=== PATIENT | female | born 1940 | race Caucasian/White ===

== ENCOUNTER → 2017-01-23 | Day surgery (SDC) | payer MEDICARE ==
[2017-01-23] VITALS (9 sets, daily range): BP systolic 136–200; BP diastolic 80–101
[~2017-01-23] MED LIST: ALLOPURINOL300 MG PO; ASPIRIN81 M1 PO; ATORVASTATIN CA40 M1 PO; BUMETANIDE2 MG PO; CARVEDILOL25 MG PO; COREG25 MG PO; DARVOCET N 1001 TAB PO; DOXYCYCLINE100 MG PO; HYDROCHLOROTHIA25 MG PO; KEFLEX500 MG PO; KLOR-CON M2020 ME1 PO; KLOR-CON M2020 MEQ PO; LASIX40 MG PO; LIDEX0.05% T; LISINOPRIL40 MG PO; METOLAZONE2.5 MG PO; METOPROLOL SR50 MG PO; NEURONTIN400 MG PO; NITROGLYCERIN0.4 MG SL; OXYCODONE5 M1 PO; PLAVIX75 M1 PO; PLAVIX75 MG PO; POTASSIUM CHLO20 ME4 PO; PRAVACHOL20 MG PO; PRAVACHOL40 MG PO; PREDNICOT20 MG PO; PREDNISONE10 MG PO; SYMBICORT1 AE1 INH; VITAMIN D-32000 UNIT PO; VITAMIN D1000 IU PO; XARE20MG PO; XARELTO15 M1 PO
== END | disposition home or self-care (01) ==
LOC: SDC 03:26 → LAB 13:00 → SDC 13:00
DX: R91.8 Other nonspecific abnormal finding of lung field (principal)

== ENCOUNTER 2017-05-24 19:01 | Inpatient (IN) | payer MEDICARE ==
[2017-05-24] VITALS (11 sets, daily range): BP systolic 110–130; BP diastolic 71–96
[~2017-05-24] VITALS: Ht 162.5 cm; Wt 62.3 kg
--- NOTE | ~2017-05-24 | CON ---
[place], [place] REPORT OF CONSULTATION NAME: COLTON GOLDMAN [facility] #: [id number] UNIT #: [id number] ROOM: 407 DOCTOR: MARICRUZ SORTO MD,YADIRA BIRTHDATE: [birth year] DOS: 05/26/2017 REASON FOR CONSULTATION: Assess the patient for hemoptysis. HISTORY OF PRESENT ILLNESS: This is a 76-year-old white female who has been known to nv once as the patient was hospitalized in [facility]. The patient underwent right upper lobectomy for the pulmonary nodule noted at 2.5 cm in the final dimension later on and also dissection of the lymph node noted with invasive squamous cell carcinoma [id number]. The patient was noted on mechanical ventilator. She was noted for surgery as well. She was noted with severe hypertension and volume depletion. The patient was subsequently transferred later on to the [facility]. She has been noted with the diagnosis of ischemic colitis at that time and underwent a partial colectomy and colostomy. The patient has been transferred after the medical management to acute long-term care facility. The patient remained in the long-term care facility and later on transferred to [facility]. She is currently treated at the [facility] in [place], [place]. The patient stated that she was developing cough intermittently in the past few days, but noted to have nonproductive cough previously. Productive cough was noted in the patient with strings of blood. The patient states that she has not told anybody about that. However, later on the patient's symptoms started worsening with tayo hemoptysis described. She denies symptoms of pain in the chest. Denies any acute shortness breath or wheezing. She was sent to the hospital. The patient was assessed in the Emergency Room and currently hospitalized for that. REVIEW OF SYSTEMS: CONSTITUTIONAL: Fatigue and tiredness. The patient noted without symptoms of fever or chills. EYES: Denies any burning, redness, or tenderness. EARS, NOSE, THROAT SYMPTOMS: No sore throat, hoarseness, otalgia, postnasal drainage. CARDIOVASCULAR: Denies anginal pain, edema or pain of the lower extremities. GASTROINTESTINAL: Denies dysphagia, nausea, vomiting, diarrhea, abdominal pain, hematemesis, melena, hematochezia currently a colostomy in place. GENITOURINARY: Denies dysuria, suprapubic pain, hematuria or flank pain. MUSCULOSKELETAL: Denies acute joint pain, redness, or tenderness. The patient has been noted with the pain in the right hip when ambulating. There was no history of any joint swelling described. SKIN: No lesions or rashes. CENTRAL NERVOUS SYSTEM: Denies dizziness, headache or diplopia. Remaining systems were reviewed with the patient, they were noted all negative. PAST MEDICAL HISTORY: 1. The medical record reviewed from [facility] was noted with history of coronary artery disease. 2. History of chronic obstructive pulmonary disease. 3. A 2.5 cm invasive squamous cell carcinoma status post surgical resection of [place], [place] REPORT OF CONSULTATION NAME: COLTON GOLDMAN UNIT #: [id number] ROOM: [facility] DOCTOR: YADIRA BRUNO MD BIRTHDATE: [birth year] the right upper lobe as well as VATS resection of the right lower lobe nodule which was noted to be nonmalignant. Lymph node dissection for the patient was done from the right side, which was also noted without any presence of malignancy. The tumor was staged as stage I. 4. for surgical resection of the right upper lobe with surgical fixation done in [place], [place] in February 2017. 5. History of ischemic colostomy. 6. History of right deep venous thrombosis. SURGICAL HISTORY: 1. Tubal ligation. 2. Lumbar laminectomy. 3. Cardiac catheterization and coronary artery stents insertion. 4. Right upper lobectomy and lymph node resection of the VATS biopsy of the right lower lobe. 5. Ligation of the thoracic duct for this patient was done on 03/12/2017 in [facility]. 6. Partial colectomy with permanent colostomy. SOCIAL HISTORY: The patient is , has 2 children. She was living at home prior to hospitalization in February 2017 and so far has not been released and discharged for home. History of tobacco use noted as a teenager, pack of cigarettes per day. Denies history of alcohol use or illicit drug use. FAMILY HISTORY: Reported for kidney problem, hypertension, heart problems and diabetes mellitus. MEDICATIONS: Current administered medication noted as use of Lipitor, Metoprolol tartrate, Effexor, folic acid, potassium chloride, vitamin D, tramadol, albuterol sulfate nebulizer, IV Protonix, IV Zosyn, and other p.r.n. medications administration. ALLERGIES: The drug allergy history was noted as allergies to: 1. NEOSPORIN. 2. PRAMOXINE. PHYSICAL EXAMINATION: GENERAL: This is a 76-year-old female who has been currently sitting comfortably on the chair in her room at the time of the assessment. Her height was recorded by the nursing staff at the time of admission as 5 feet 4 inches, weight 137 pounds, BMI 23.5. VITAL SIGNS: Recorded showed temperature remains normal, respiratory rate 18-14. Heart rate 95-102. Blood pressure 158/82-122/62. Intake 3000, output was 1.86 liters. Pulse oxygen saturation on 2 liters nasal cannula 98% saturation. HEENT: Examination shows head was atraumatic. Eyes not icterus. NECK: Supple. CARDIOVASCULAR: S1, S2 audible. LUNGS: Noted without any crackles, rhonchi, or wheezing. ABDOMEN: Flat, soft, nontender. Bowel sounds present. [place], [place] REPORT OF CONSULTATION NAME: COLTON GOLDMAN UNIT #: [id number] ROOM: [facility] DOCTOR: MARICRUZ SORTO [facility] BIRTHDATE: [birth year] CENTRAL NERVOUS SYSTEM: Cranial nerves 2-12 intact. No focal deficits. MUSCULOSKELETAL: No deformities. SKIN: No lesions or rashes. LABORATORY DATA: CBC on 05/24/2017: WBC count was noted as 23.2, hemoglobin 11.2, hematocrit 33.4, platelet count 448,000. PT/PTT were noted. INR elevated on 05/24/2017 at 5.7. PTT was 57. The lactic acid was 1.6 on 05/24/2017. Follow up lactic acid 2.0. Troponin of patient on admission on the 05/24/2017 and 05/25/2017, 3 sets were noted normal. INR on 05/25/2017 was 4.8. CBC of patient on 05/25/2010: WBC count 14.3, hemoglobin 9.9, hematocrit 30.3, platelet count 368,000. BMP of the patient 05/25/2017 was noted BUN 30, creatinine was normal. Sodium 133. BMP 05/26/2017 was noted as normal. PT/INR of the patient this morning was 1.5. CBC of the patient this morning: WBC count 12,000, hemoglobin 8.6, hematocrit 27.2, platelet count 360,000. The blood culture for the patient from the 05/24/2017 two sets remains no bacterial growth. Chest x-ray of the patient, one view that was done during current hospitalization was noted without any acute pulmonary infiltration. Postoperative changes noted in the right upper lung. IMPRESSION: 1. The patient has been currently noted with significant leukocytosis with cough and hemoptysis as well as Coumadin toxicity. 2. History of status post resection of the right upper lobe for this patient for the invasive squamous cell cancer without any lymph node involvement. 3. The patient with ____ complication post-thoracic surgery. The patient with successful ligation and thoracic duct resolution. 4. Ischemic colitis. The patient is status post colostomy in February 2017. 5. Debility. 6. Anemia for the patient is also noted of possibly chronic disease. 7. History of deep venous thrombosis of right lower extremity. PLAN OF MANAGEMENT: Hemoptysis at this time will be monitored. The patient will be kept off the anticoagulation to prevent the recurrence of hemoptysis. Bronchoscopy planned to be done in the morning. Risks and benefits of procedure were discussed with the patient to assess for the hemoptysis. CT scan of the chest will be obtained even with the negative chest x-ray to rule out any occult problems in the lungs since it was not noted 100% sensitive to rule out pneumonia or other etiologies of the hemoptysis. Supportive care therapy, plan of management. Continue bronchodilators as previously. Reduce the antibiotic spectrum with available any culture results. Order the sputum for supportive care, plan of management. Routine DVT prophylaxis with the use of Lovenox starting from tomorrow. [place], [place] REPORT OF CONSULTATION NAME: COLTON GOLDMAN UNIT #: [id number] ROOM: 407 DOCTOR: YADIRA BRUNO MD BIRTHDATE: [birth year] YADIRA ALCANTARA MD CM:CONSTR:REPORT OF CONSULTATION 1421 05/27/17 4316 interface
--- NOTE | ~2017-05-24 | PR ---
[place], [place] PROGRESS NOTE NAME: COLTON GOLDMAN [facility] #: [id number] UNIT #: [id number] ROOM: [facility] DOCTOR: MARICRUZ SORTO MD,YADIRA BIRTHDATE: [birth year] DOS: 05/27/2017 SUBJECTIVE: She has been noted with small amount of hemoptysis in the last 24 hours with clotted blood and mucus expectoration. She is n.p.o. past midnight for bronchoscopy that was planned for today. She has had a CT scan of the chest was completed yesterday. OBJECTIVE: VITAL SIGNS: The patient showed normal temperature, respiratory rate 15, heart rate 91, blood pressure of 118/60. Pulse oxygen saturation of the patient was recorded on 2 liters nasal cannula 100% saturation. HEENT: Showed no acute change. NECK: Supple. CARDIOVASCULAR: S1, S2 audible. LUNGS: Mild to moderate decreased breath sounds bilaterally without any wheezing or crackles. ABDOMEN: Soft, nontender. LABORATORY DATA: INR today was noted 1.2. CBC of this morning, hemoglobin 8.1, hematocrit 25.5, WBC count normal, platelet count was normal. The CT scan of the chest, which was done without contrast yesterday was personally reviewed shows evidence of previous right upper lobectomy. The 3.3 x 2.7 cm right dorsal peritracheal mass. The patient needs surgery which is noted. The mass also noted with extension to the subcarinal region for this patient and is a 2.9 x 2.2 cm necrotic mass at that area. Evidence of centrilobular emphysema, acute changes noted in the upper lungs as well. IMPRESSION: 1. Past history of squamous cell cancer, status post right upper lobectomy and lymph node dissection. Margins of the tumor were noted free off the cancer for this patient with right upper lobectomy. 2. Hemoptysis, most likely secondary to current necrotic mass and recurrence of the invasive squamous cell cancer, locally. 3. Anemia. 4. History of chronic obstructive pulmonary disease. PLAN OF MANAGEMENT: No changes in the plan at this time. Proceed with the bronchoscopy, further assessment of hemoptysis and current abnormality noted on CT scan of the chest. Continue supportive plan and management. Any modification in treatment if necessary will be done after bronchoscopy. [place], [place] PROGRESS NOTE NAME: COLTON GOLDMAN UNIT #: [id number] ROOM: [facility] DOCTOR: MARICRUZ SORTO MD,YADIRA BIRTHDATE: [birth year] YADIRA ALCANTARA MD CM:BYRON [id number] YADIRA SORTO MD 05/27/17 1216 interface
--- NOTE | ~2017-05-24 | PR ---
[place], [place] PROGRESS NOTE NAME: COLTON GOLDMAN UNIT #: [id number] ROOM: 407 DOCTOR: YADIRA BRUNO MD BIRTHDATE: [birth year] DOS: 05/28/2017 PULMONARY FOLLOWUP NOTE SUBJECTIVE: She has been noted comfortable at this time, resting on the bed. Denies symptoms of chest or any abdominal pain. Coughing has been noted minimal. OBJECTIVE: VITAL SIGNS: For the patient which were recorded showed the blood pressure noted as 108/60, temperature normal, respiratory rate 16, heart rate 78. Pulse oxygen saturation of the patient recorded on 2 liters nasal cannula 100% saturation. HEENT: Examination shows no acute change. NECK: Supple. CARDIOVASCULAR: S1, S2 audible. LUNGS: Without any wheeze or crackles at the present time. ABDOMEN: Soft, nontender. IMPRESSION: 1. Acute tracheobronchitis with current bronchial washing noted light growth of gram-negative ____ isolation with preliminary culture results of yesterday. Gram stain shows moderate white blood cells, moderate epithelial cells, ____ gram-positive cocci. 2. Recurrence of the malignancy of squamous cell carcinoma after previous surgery and resection of the right upper lung invasive squamous cell cancer. PLAN OF MANAGEMENT: Continue using antibiotics. Discharge planning could be started for possible discharge home in the morning. Whether she will require further intravenous and oral antibiotic will be based on the culture results of the bronchial washings. Monitor results of the endobronchial biopsy and cytology of the bronchial washing which was pending at this time. Assessment and management of the bronchoscopy as well as the CT scan finding was discussed in detail with the patient today for 10 minutes. [place], [place] PROGRESS NOTE NAME: COLTON GOLDMAN UNIT #: [id number] ROOM: 407 DOCTOR: YADIRA BRUNO MD BIRTHDATE: [birth year] YADIRA ALCANTARA MD CM:PNTRANS [id number] 1149 YADIRA SORTO MD 05/28/17 1149 interface
--- NOTE | ~2017-05-24 | EKG ---
[place], [place] ELECTROCARDIOGRAM REPORT NAME: COLTON GOLDMAN UNIT #: [id number] ROOM: 407 DOCTOR: THIAGO INGRAM MD BIRTHDATE: [birth year] DOS: 05/24/2017 TIME: 1913 hours. Sinus tachycardia at 121 beats per minute. Tracing is normal. No previous tracing is available for comparison. THIAGO INGRAM MD CM:EKGRPT:ELECTROCARDIOGRAM REPORT 34 [phone] THIAGO INGRAM MD
--- NOTE | ~2017-05-24 | PROC NOTE ---
[place], [place] PROCEDURE NOTE NAME: [facility]TON GOLDMAN [facility] #: [id number] UNIT #: [id number] ROOM: [facility] DOCTOR: MARICRUZ SORTO MD,YADIRA BIRTHDATE: [birth year] DOS: 05/27/2017 PREOPERATIVE DIAGNOSIS: Hemoptysis with history of lung cancer, right upper lobectomy. POSTOPERATIVE DIAGNOSES: Small clotted amount of blood was noted in right main stem bronchus without any active bleeding, status post biopsy at the area of the stump of right upper lobe. PROCEDURE DESCRIPTION: Informed consent obtained for the patient. The patient brought to the OR and placed in supine position. Conscious sedation administered by the Anesthesia Department. After achieving proper sedation, airway introduced into the mouth. Bronchoscope advanced into the airway into laryngeal area. Epiglottis and vocal cords were seen, which were noted yellowish in color moving symmetrically with movements. Bronchoscope advanced the tracheal lumen, which was noted clear of any blood or other abnormality. Norma noted sharp. Small amount of mucus mixed with the blood was noted in the upper right main stem bronchus, which was cleared out with normal saline wash. The left upper lingula, lower lobe bronchi were all examined. There were noted normal without any abnormalities. Bronchial washing was taken. Right middle, right lower lobe bronchi were also noted patent including superior segment of the right lower lobe. All appeared to be normal caliber without any endobronchial lesions. The area of the stump for this patient where the right upper lobe resection was done was seen, was noted with some irregularity of the mucosa and nodular appearance. The biopsy was taken at that area. A 1:10,000 epinephrine was lavaged at that area to prevent any bleeding. Procedure well tolerated by the patient without any complications. Postoperative findings will be discussed with the patient once the patient recovers the effects of acute sedation. YADIRA ALCANTARA MD CM:PROCNOTE:PROCEDURE NOTE 1012 1220 YADIRA SORTO MD
[~2017-05-24 19:01] MED LIST changes: +KLOR-CON SPRIN10 MEQ PO
[2017-05-24 19:41] LABS: HEMATOCRIT 33.4 % (37.0-47.0); HEMOGLOBIN 11.2 g/dl (12.0-16.0); MEAN CELL VOLUME 84.3 fl (81.0-99.0); MEAN CORPUSCULAR HGB 28.3 pg (27.0-31.0); MEAN CORPUSCULAR HGB CONC 33.5 g/dl (33.0-37.0); MEAN PLATELET VOLUME 9.6 fl (9.6-12.3); PLATELET COUNT AUTOMATED 448 10*3/uL (130-400); RED BLOOD COUNT 3.96 10*6/uL (4.10-5.10); RED CELL DISTRI WIDTH 14.6 % (0-14.5); WHITE BLOOD COUNT 23.2 10*3/uL (4.8-10.8)
[2017-05-24 19:57] LABS: ALBUMIN 2.9 gm/dl (3.1-4.5); ALKALINE PHOSPHATASE 222 U/L (45-117); BILIRUBIN, TOTAL 0.4 mg/dl (0.2-1.0); BUN 34 mg/dl (7-24); CARBON DIOXIDE 21 mmol/L (21-32); CHLORIDE 95 mmol/L (98-107); EST GLOM FILT AFRICAN AMERICAN 53 ml/min; GLUCOSE 108 mg/dL (65-99); MAGNESIUM 1.3 mg/dL (1.5-2.1); POTASSIUM 5.7 mmol/L (3.5-5.1); SGOT/AST 18 IU/L (3-35); SGPT/ALT 24 U/L (12-78); SODIUM 127 mmol/L (136-145); TOTAL PROTEIN 8.9 gm/dL (6.4-8.2)
[2017-05-24 19:58] LABS: PROTHROMBIN TIME 67.4 SECONDS (9.0-12.4)
[2017-05-24 19:59] LABS: BASOPHIL # 0.2 10*3/uL (0-0.1); BASOPHILS 1 % (0-1); EOSINOPHIL # 0.5 10*3/uL (0-0.4); EOSINOPHILS 2 % (1-4); LYMPHOCYTE # 1.9 10*3/uL (1.3-4.4); MONOCYTE # 0.9 10*3/uL (0.1-1.0); NEUTROPHIL # 19.7 10*3/uL (2.3-7.9); NEUTROPHILS 85 % (47-73); TOTAL CELLS COUNTED 100 #CELLS; TROPONIN I < 0.015 ng/ml (<0.045)
[2017-05-24 20:00] LABS: PLATELET SUFFICIENCY HIGH (NORMAL)
[2017-05-24 20:04] LABS: INTERNATIONAL NORM RATIO 5.7 (2.0-3.5)
[2017-05-24] MEDS ORDERED: ASPIRIN81 M1 PO (22:47)
[2017-05-24] MEDS ORDERED: COUMADIN1 M1 PO (22:54)
[2017-05-24] MEDS ORDERED: COUMADIN2 M1 PO (22:57)
[2017-05-24] MEDS ORDERED: NATURE'S BLEND F1 MG PO (22:58)
[2017-05-24] MEDS ORDERED: EFFEXOR XR37.5 M1 PO (22:59)
[2017-05-24] MEDS ORDERED: LOPRESSOR25 MG PO (23:01)
[2017-05-24] MEDS ORDERED: PROTONIX40 MG PO (23:02)
[2017-05-24] MEDS ORDERED: Ventolin 02.5 MG/3 M INH (23:04)
[2017-05-24] MEDS ORDERED: MECLIZINE HCL12.5 MG PO (23:06)
[2017-05-24] MEDS ORDERED: ALUM-MAG HYDRO360 ML PO (23:08)
[2017-05-24] MEDS ORDERED: NITROLINGU0.4 MG/ACT TL (23:11)
[2017-05-24] MEDS ORDERED: TYLENOL325 M2 PO (23:12)
[2017-05-24] MEDS ORDERED: TRAMADOL HCL50 MG PO (23:13)
[2017-05-24] MEDS ORDERED: ZOFRAN4 MG PO (23:13)
[2017-05-24] MEDS ORDERED: DESITIN40% T (23:18)
[2017-05-25] VITALS: BP 132/80
[2017-05-25 03:14] LABS: BILIRUBIN NEGATIVE (NEGATIVE); BLOOD 2+ (NEGATIVE); CLARITY SL CLOUDY (CLEAR); COLOR YELLOW (YELLOW); GLUCOSE NEGATIVE (NEGATIVE); KETONE NEGATIVE (NEGATIVE); LEUKO ESTERASE 3+ (NEGATIVE); NITRITE POSITIVE (NEGATIVE); PROTEIN NEGATIVE (NEGATIVE); SPECIFIC GRAVITY 1.025 (1.005-1.030); UROBILINOGEN 0.2 E.U./dl (0.2-1.0)
[2017-05-25 03:20] LABS: BACTERIA 3+
[2017-05-25 03:21] LABS: EPITHELIAL CELLS 30-35; WBC 41-50 wbc/hpf (0-5); YEAST TRACE
[2017-05-25 04:00] VITALS: BP 158/82
[2017-05-25 04:46] LABS: HEMATOCRIT 30.3 % (37.0-47.0); HEMOGLOBIN 9.9 g/dl (12.0-16.0); MEAN CELL VOLUME 86.3 fl (81.0-99.0); MEAN CORPUSCULAR HGB 28.2 pg (27.0-31.0); MEAN CORPUSCULAR HGB CONC 32.7 g/dl (33.0-37.0); MEAN PLATELET VOLUME 9.8 fl (9.6-12.3); PLATELET COUNT AUTOMATED 368 10*3/uL (130-400); RED BLOOD COUNT 3.51 10*6/uL (4.10-5.10); RED CELL DISTRI WIDTH 14.7 % (0-14.5); WHITE BLOOD COUNT 14.2 10*3/uL (4.8-10.8)
[2017-05-25 04:59] LABS: BUN 30 mg/dl (7-24); CARBON DIOXIDE 24 mmol/L (21-32); CHLORIDE 100 mmol/L (98-107); EST GLOM FILT AFRICAN AMERICAN > 60 ml/min; GLUCOSE 100 mg/dL (65-99); MAGNESIUM 2.3 mg/dL (1.5-2.1); SODIUM 133 mmol/L (136-145)
[2017-05-25 05:03] LABS: FREE T4 1.54 ng/dl (0.76-1.46); PHOSPHOROUS 4.3 mg/dL (2.5-4.9); PROTHROMBIN TIME 56.5 SECONDS (9.0-12.4)
[2017-05-25 05:07] LABS: HEMOGLOBIN A1c 5.6 % (4.8-5.6)
[2017-05-25 05:08] LABS: POTASSIUM 4.6 mmol/L (3.5-5.1)
[2017-05-25 05:10] LABS: INTERNATIONAL NORM RATIO 4.8 (2.0-3.5)
[2017-05-25 05:12] LABS: EOSINOPHIL # 0.6 10*3/uL (0-0.4); EOSINOPHILS 4 % (1-4); LYMPHOCYTE # 1.8 10*3/uL (1.3-4.4); METAMYELOCYTES 3 % (0-0); MONOCYTE # 0.4 10*3/uL (0.1-1.0); NEUTROPHIL # 10.9 10*3/uL (2.3-7.9); NEUTROPHILS 77 % (47-73); PLATELET SUFFICIENCY NORMAL (NORMAL); TOTAL CELLS COUNTED 100 #CELLS
[2017-05-25 07:25] LABS: VITAMIN D, 25-HYDROXY 26.3 ng/mL (30-100)
[2017-05-25 07:26] LABS: FOLIC ACID 18.99 ng/mL (>5.38)
[2017-05-25 08:00] VITALS: BP 125/67
[2017-05-25 12:00] VITALS: BP 125/71
[2017-05-25 16:00] VITALS: BP 134/71
[2017-05-25 20:00] VITALS: BP 123/65
[2017-05-26] VITALS: BP 106/60
[2017-05-26 04:00] VITALS: BP 104/60
[2017-05-26 05:51] LABS: CARBON DIOXIDE 23 mmol/L (21-32); CHLORIDE 106 mmol/L (98-107); EST GLOM FILT AFRICAN AMERICAN > 60 ml/min; GLUCOSE 72 mg/dL (65-99); POTASSIUM 4.4 mmol/L (3.5-5.1); SODIUM 136 mmol/L (136-145)
[2017-05-26 06:02] LABS: BUN 19 mg/dl (7-24)
[2017-05-26 06:14] LABS: BASO # 0.1 10*3/uL (0.0-0.1); BASO % 0.6 % (0.0-1.0); EOS # 0.8 10*3/uL (0.0-0.4); EOS % 6.3 % (1.0-4.0); HEMATOCRIT 27.2 % (37.0-47.0); HEMOGLOBIN 8.6 g/dl (12.0-16.0); IG # 0.3 10*3/uL (0.0-0.1); LYMPH # 1.1 10*3/uL (1.3-4.4); LYMPH % 8.9 % (27.0-41.0); MEAN CORPUSCULAR HGB 28.4 pg (27.0-31.0); MEAN CORPUSCULAR HGB CONC 31.6 g/dl (33.0-37.0); MEAN PLATELET VOLUME 9.7 fl (9.6-12.3); MONO % 7.9 % (3.0-9.0); NEUT # 8.8 10*3/uL (2.3-7.9); PLATELET COUNT AUTOMATED 360 10*3/uL (130-400); RED BLOOD COUNT 3.03 10*6/uL (4.10-5.10); RED CELL DISTRI WIDTH 14.9 % (0-14.5)
[2017-05-26 06:25] LABS: INTERNATIONAL NORM RATIO 1.5 (2.0-3.5); PROTHROMBIN TIME 16.1 SECONDS (9.0-12.4)
[2017-05-26 06:44] LABS: MEAN CELL VOLUME 89.8 fl (81.0-99.0)
[2017-05-26 08:00] VITALS: BP 122/64
[2017-05-26 12:00] VITALS: BP 112/66
[2017-05-26 16:00] VITALS: BP 129/65
[2017-05-26 20:00] VITALS: BP 138/86
[2017-05-27] VITALS (9 sets, daily range): BP systolic 104–122; BP diastolic 51–72
[2017-05-27 06:02] LABS: BASO # 0.1 10*3/uL (0.0-0.1); BASO % 0.8 % (0.0-1.0); EOS # 0.8 10*3/uL (0.0-0.4); EOS % 7.6 % (1.0-4.0); HEMATOCRIT 25.5 % (37.0-47.0); HEMOGLOBIN 8.1 g/dl (12.0-16.0); IG # 0.3 10*3/uL (0.0-0.1); LYMPH # 1.3 10*3/uL (1.3-4.4); LYMPH % 12.2 % (27.0-41.0); MEAN CELL VOLUME 88.5 fl (81.0-99.0); MEAN CORPUSCULAR HGB 28.1 pg (27.0-31.0); MEAN CORPUSCULAR HGB CONC 31.8 g/dl (33.0-37.0); MONO # 1.1 10*3/uL (0.1-1.0); NEUT # 7.1 10*3/uL (2.3-7.9); NEUT % 66.8 % (47.0-73.0); PLATELET COUNT AUTOMATED 374 10*3/uL (130-400); RED BLOOD COUNT 2.88 10*6/uL (4.10-5.10); RED CELL DISTRI WIDTH 14.7 % (0-14.5); WHITE BLOOD COUNT 10.6 10*3/uL (4.8-10.8)
[2017-05-27 06:13] LABS: INTERNATIONAL NORM RATIO 1.2 (2.0-3.5); PROTHROMBIN TIME 12.4 SECONDS (9.0-12.4)
[2017-05-28] VITALS: BP 113/54
[2017-05-28 07:21] LABS: BASO # 0.1 10*3/uL (0.0-0.1); BASO % 0.7 % (0.0-1.0); EOS # 0.7 10*3/uL (0.0-0.4); EOS % 7.3 % (1.0-4.0); HEMATOCRIT 26.3 % (37.0-47.0); HEMOGLOBIN 8.2 g/dl (12.0-16.0); IG # 0.3 10*3/uL (0.0-0.1); LYMPH % 10.5 % (27.0-41.0); MEAN CELL VOLUME 89.2 fl (81.0-99.0); MEAN CORPUSCULAR HGB 27.8 pg (27.0-31.0); MEAN CORPUSCULAR HGB CONC 31.2 g/dl (33.0-37.0); MEAN PLATELET VOLUME 9.1 fl (9.6-12.3); MONO # 0.9 10*3/uL (0.1-1.0); MONO % 9.3 % (3.0-9.0); NEUT # 6.9 10*3/uL (2.3-7.9); NEUT % 69.3 % (47.0-73.0); PLATELET COUNT AUTOMATED 335 10*3/uL (130-400); RED BLOOD COUNT 2.95 10*6/uL (4.10-5.10); WHITE BLOOD COUNT 9.9 10*3/uL (4.8-10.8)
[2017-05-28 08:00] VITALS: BP 108/60
[2017-05-28 12:00] VITALS: BP 106/61
[2017-05-28] MEDS ORDERED: D-1000 185 MG-11 TAB PO (14:13)
[2017-05-28 16:00] VITALS: BP 113/61
[2017-05-28 16:11] LABS: ACID FAST SPEC PROCESSING Concentration (.)
[2017-05-28] MEDS ORDERED: PROTONIX40 MG PO (20:03)
== END 2017-05-28 20:20 | disposition home health service (06) | DRG 871 ==
LOC: ED 19:01 → 4E 20:51 → EDHOLD 20:51 → ICCU 20:57 → 4E 05-27 13:15
PROVIDERS: Emergency Medicine; Family Medicine; Internal Medicine; Internal Medicine Critical Care Medicine; Internal Medicine Hospice and Palliative Medicine
PROC: 0BB38ZX Excision of Right Main Bronchus, Via Natural or Artificial Opening Endoscopic, Diagnostic (ICD-10-PCS; principal; 2017-05-27)
DX: A41.9 Sepsis, unspecified organism (principal); J96.01 Acute respiratory failure with hypoxia; N17.0 Acute kidney failure with tubular necrosis; E44.0 Moderate protein-calorie malnutrition; K55.9 Vascular disorder of intestine, unspecified; E87.1 Hypo-osmolality and hyponatremia; D62 Acute posthemorrhagic anemia; J44.0 Chronic obstructive pulmonary disease with (acute) lower respiratory infection; R65.20 Severe sepsis without septic shock; I10 Essential (primary) hypertension; E87.5 Hyperkalemia; D47.3 Essential (hemorrhagic) thrombocythemia; J20.9 Acute bronchitis, unspecified; E78.5 Hyperlipidemia, unspecified; E55.9 Vitamin D deficiency, unspecified; K21.9 Gastro-esophageal reflux disease without esophagitis; F32.9 Major depressive disorder, single episode, unspecified; R91.8 Other nonspecific abnormal finding of lung field; Z93.3 Colostomy status; Z87.891 Personal history of nicotine dependence; Z68.23 Body mass index [BMI] 23.0-23.9, adult; Z85.118 Personal history of other malignant neoplasm of bronchus and lung; Z86.718 Personal history of other venous thrombosis and embolism; Z98.51 Tubal ligation status; Z95.5 Presence of coronary angioplasty implant and graft; Z88.1 Allergy status to other antibiotic agents; Z88.8 Allergy status to other drugs, medicaments and biological substances; Z83.3 Family history of diabetes mellitus; Z82.49 Family history of ischemic heart disease and other diseases of the circulatory system

== ENCOUNTER 2017-05-30 16:30 | Inpatient (IN) | payer MEDICARE ==
[~2017-05-30] VITALS: Ht 162.6 cm; Wt 68.7 kg
--- NOTE | ~2017-05-30 | O ---
[place], [place] OPERATIVE NOTE [id number] UNIT #: [id number] ROOM: [facility] DOCTOR: HUGO FAROOQPAXTON BIRTHDATE: [birth year] DOS: HISTORY OF PRESENT ILLNESS: The patient has presented with hematemesis, prolonged INR of 7 and GI bleed, status post correction and I have been asked for assessment of the patient in this regard. The patient has been investigated with CT scan of the abdomen and pelvis as well, postsurgical changes of subtotal colectomy, right lower quadrant ileostomy, surgical mesh, stranding, phlegmon in the left mid abdominal region inferior to the spleen which could be from the recent subtotal colectomy or fat necrosis, marked perisacral soft tissue thickening and fat stranding involving surgical area, cholelithiasis. No obvious ductal dilation, fusiform infrarenal abdominal aortic aneurysm of 3.6 x 3.2, atherosclerotic diseases, all have been recognized. She has had transfusion of fresh frozen plasma, vitamin K. The most recent H and H is 8.2 and 26, platelet 362. Basic metabolic panel, electrolytes balanced, phosphorus normal. PAST MEDICAL HISTORY: GERD, hypertension, DVT, COPD. PAST SURGICAL HISTORY: Colostomy, tubal ligation, laminectomy, hip. SOCIAL HISTORY: Past smoker, nonalcohol consumer. FAMILY HISTORY: Noncontributory. ALLERGIES: NEOMYCIN, BACITRACIN, POLYMYXIN. MEDICATIONS: List has been reviewed. She has been on aspirin, she was on warfarin. PROCEDURE: Today's procedure part of investigation of hematemesis is panendoscopy. PREMEDICATION: Versed and Diprivan. SCOPE: Olympus forward-viewing gastroscope Q10 video. REPORT: After putting the patient in the left lateral position and after application of lubricant to the scope, the scope was introduced; thereafter, under direct visualization, advanced through the length of esophagus without difficulty. There is no evidence of esophageal varicosity. There is a small hiatal hernia of 2 cm, gastric pouch was entered. No evidence of bleeding, very mild gastritis noticed. Duodenal bulb, second and third part within normal limit. No biopsy was necessary. The patient extubated, tolerated procedure well. IMPRESSION: Small hiatal hernia, very mild gastritis. PLAN AND DISCUSSION: Resumption regular diet and her medications from today. The source of hemetemesis must have been superficial abrasion to vasculatures [place], [place] OPERATIVE NOTE NAME: COLTON GOLDMAN UNIT #: [id number] ROOM: [facility] DOCTOR: HUGO FAROOQ,PAXTON BIRTHDATE: [birth year] along the upper GI tract and while her INR prolonged greater than 7 and subsequently bleeding easily. At the present time, no active bleeding. Thank you very much indeed. PAXTON ARIAS MD CM:OPRECORD:OPERATIVE NOTE 1619 01 PAXTON ARIAS MD 05/31/172100 interface
[~2017-05-30 16:30] MED LIST changes: +ALUM-MAG HYDRO360 ML PO; +COUMADIN1 M1 PO; +COUMADIN2 M1 PO; +D-1000 185 MG-11 TAB PO; +DESITIN40% T; +EFFEXOR XR37.5 M1 PO; +LOPRESSOR25 MG PO; +MECLIZINE HCL12.5 MG PO; +NATURE'S BLEND F1 MG PO; +NITROLINGU0.4 MG/ACT TL; +PROTONIX40 MG PO; +TRAMADOL HCL50 MG PO; +TYLENOL325 M2 PO; +Ventolin 02.5 MG/3 M INH; +ZOFRAN4 MG PO
[2017-05-30 16:41] VITALS: BP 90/53
[2017-05-30 17:07] LABS: HEMATOCRIT 31.2 % (37.0-47.0); HEMOGLOBIN 9.9 g/dl (12.0-16.0); MEAN CELL VOLUME 89.7 fl (81.0-99.0); MEAN CORPUSCULAR HGB 28.4 pg (27.0-31.0); MEAN CORPUSCULAR HGB CONC 31.7 g/dl (33.0-37.0); MEAN PLATELET VOLUME 8.8 fl (9.6-12.3); PLATELET COUNT AUTOMATED 426 10*3/uL (130-400); RED BLOOD COUNT 3.48 10*6/uL (4.10-5.10); RED CELL DISTRI WIDTH 15.7 % (0-14.5); WHITE BLOOD COUNT 16.6 10*3/uL (4.8-10.8)
[2017-05-30 17:15] LABS: PROTHROMBIN TIME 10.7 SECONDS (9.0-12.4)
[2017-05-30 17:27] LABS: ALBUMIN 2.8 gm/dl (3.1-4.5); ALKALINE PHOSPHATASE 186 U/L (45-117); BILIRUBIN, TOTAL 0.3 mg/dl (0.2-1.0); BUN 24 mg/dl (7-24); CARBON DIOXIDE 19 mmol/L (21-32); CHLORIDE 102 mmol/L (98-107); EST GLOM FILT AFRICAN AMERICAN 19 ml/min; GLUCOSE 115 mg/dL (65-99); MAGNESIUM 1.2 mg/dL (1.5-2.1); POTASSIUM 4.3 mmol/L (3.5-5.1); SGOT/AST 16 IU/L (3-35); SGPT/ALT 18 U/L (12-78); SODIUM 134 mmol/L (136-145)
[2017-05-30 17:29] LABS: MYELOCYTES 1 % (0-0); NEUTROPHIL # 13.8 10*3/uL (2.3-7.9); NEUTROPHILS 83 % (47-73); PLATELET SUFFICIENCY HIGH (NORMAL); TOTAL CELLS COUNTED 100 #CELLS; TROPONIN I < 0.015 ng/ml (<0.045)
[2017-05-30 17:30] LABS: POLYCHROMASIA SLIGHT
[2017-05-30 17:33] LABS: EOSINOPHIL # 0.3 10*3/uL (0-0.4); EOSINOPHILS 2 % (1-4); LYMPHOCYTE # 1.5 10*3/uL (1.3-4.4); MONOCYTE # 0.8 10*3/uL (0.1-1.0)
[2017-05-30 19:04] VITALS: BP 98/53
[2017-05-30 20:02] VITALS: BP 87/50
[2017-05-30 20:57] VITALS: BP 107/59
[2017-05-30 22:15] VITALS: BP 104/53
[2017-05-30] MEDS ORDERED: ASPIRIN81 M1 PO (22:59)
[2017-05-30] MEDS ORDERED: NATURE'S BLEND F1 MG PO (23:23)
[2017-05-30] MEDS ORDERED: ATORVASTATIN CA40 M1 PO (23:23)
[2017-05-30] MEDS ORDERED: VENLAFAXINE37.5 M1 PO (23:24)
[2017-05-30] MEDS ORDERED: MECLIZINE HCL12.5 MG PO (23:26)
[2017-05-30] MEDS ORDERED: ALMACONE LIQUI355 ML PO (23:28)
[2017-05-30] MEDS ORDERED: TRAMADOL HCL50 MG PO (23:29)
[2017-05-30] MEDS ORDERED: ZOFRAN4 MG PO (23:30)
[2017-05-30] MEDS ORDERED: DESITIN DIAPER28 GM T (23:31)
[2017-05-30] MEDS ORDERED: PROTONIX40 MG PO (23:32)
[2017-05-31] VITALS (10 sets, daily range): BP systolic 80–116; BP diastolic 38–69
[2017-05-31] MEDS ORDERED: VITAMIN D31000 UNI1 PO (02:45)
[2017-05-31 05:53] LABS: HEMATOCRIT 26.4 % (37.0-47.0); HEMOGLOBIN 8.2 g/dl (12.0-16.0); MEAN CELL VOLUME 90.1 fl (81.0-99.0); MEAN CORPUSCULAR HGB CONC 31.1 g/dl (33.0-37.0); MEAN PLATELET VOLUME 9.2 fl (9.6-12.3); PLATELET COUNT AUTOMATED 364 10*3/uL (130-400); RED BLOOD COUNT 2.93 10*6/uL (4.10-5.10); RED CELL DISTRI WIDTH 15.8 % (0-14.5); WHITE BLOOD COUNT 13.2 10*3/uL (4.8-10.8)
[2017-05-31 06:01] LABS: PHOSPHOROUS 4.5 mg/dL (2.5-4.9); POTASSIUM 4.3 mmol/L (3.5-5.1)
[2017-05-31 06:16] LABS: PROTHROMBIN TIME 10.5 SECONDS (9.0-12.4)
[2017-05-31 07:15] LABS: EOSINOPHIL # 0.5 10*3/uL (0-0.4); EOSINOPHILS 4 % (1-4); HYPOCHROMIA SLIGHT; LYMPHOCYTE # 0.9 10*3/uL (1.3-4.4); METAMYELOCYTES 2 % (0-0); MONOCYTE # 0.9 10*3/uL (0.1-1.0); MYELOCYTES 2 % (0-0); NEUTROPHIL # 10.3 10*3/uL (2.3-7.9); NEUTROPHILS 78 % (47-73); PLATELET SUFFICIENCY NORMAL (NORMAL); POLYCHROMASIA SLIGHT; TOTAL CELLS COUNTED 100 #CELLS
[2017-06-01] VITALS (9 sets, daily range): BP systolic 92–118; BP diastolic 49–73
[2017-06-01 04:56] LABS: HEMOGLOBIN 7.7 g/dl (12.0-16.0); MEAN CELL VOLUME 91.6 fl (81.0-99.0); MEAN CORPUSCULAR HGB 28.2 pg (27.0-31.0); MEAN CORPUSCULAR HGB CONC 30.8 g/dl (33.0-37.0); MEAN PLATELET VOLUME 8.8 fl (9.6-12.3); PLATELET COUNT AUTOMATED 311 10*3/uL (130-400); RED BLOOD COUNT 2.73 10*6/uL (4.10-5.10); RED CELL DISTRI WIDTH 15.9 % (0-14.5); WHITE BLOOD COUNT 12.2 10*3/uL (4.8-10.8)
[2017-06-01 05:27] LABS: EOSINOPHIL # 0.2 10*3/uL (0-0.4); EOSINOPHILS 2 % (1-4); LYMPHOCYTE # 0.9 10*3/uL (1.3-4.4); MONOCYTE # 0.2 10*3/uL (0.1-1.0); NEUTROPHIL # 10.9 10*3/uL (2.3-7.9); NEUTROPHILS 89 % (47-73); PLATELET SUFFICIENCY NORMAL (NORMAL); TOTAL CELLS COUNTED 100 #CELLS
[2017-06-01 05:29] LABS: ALBUMIN 2.2 gm/dl (3.1-4.5); ALKALINE PHOSPHATASE 140 U/L (45-117); BILIRUBIN, TOTAL 0.2 mg/dl (0.2-1.0); BUN 18 mg/dl (7-24); CARBON DIOXIDE 19 mmol/L (21-32); CHLORIDE 114 mmol/L (98-107); EST GLOM FILT AFRICAN AMERICAN > 60 ml/min; GLUCOSE 100 mg/dL (65-99); MAGNESIUM 1.3 mg/dL (1.5-2.1); POTASSIUM 4.8 mmol/L (3.5-5.1); SGOT/AST 15 IU/L (3-35); SGPT/ALT 17 U/L (12-78); SODIUM 142 mmol/L (136-145); TOTAL PROTEIN 6.1 gm/dL (6.4-8.2)
[2017-06-01 17:07] LABS: BASO # 0.1 10*3/uL (0.0-0.1); BASO % 0.8 % (0.0-1.0); EOS # 0.5 10*3/uL (0.0-0.4); EOS % 4.7 % (1.0-4.0); IG # 0.3 10*3/uL (0.0-0.1); LYMPH # 1.1 10*3/uL (1.3-4.4); MEAN CELL VOLUME 90.9 fl (81.0-99.0); MEAN CORPUSCULAR HGB CONC 31.9 g/dl (33.0-37.0); MEAN PLATELET VOLUME 8.7 fl (9.6-12.3); MONO # 0.8 10*3/uL (0.1-1.0); MONO % 7.7 % (3.0-9.0); NEUT % 74.4 % (47.0-73.0); PLATELET COUNT AUTOMATED 257 10*3/uL (130-400); RED BLOOD COUNT 3.62 10*6/uL (4.10-5.10); RED CELL DISTRI WIDTH 14.9 % (0-14.5); WHITE BLOOD COUNT 10.7 10*3/uL (4.8-10.8)
[2017-06-01 17:08] LABS: HEMATOCRIT 32.9 % (37.0-47.0); HEMOGLOBIN 10.5 g/dl (12.0-16.0)
[2017-06-02] VITALS: BP 109/56
[2017-06-02 06:56] LABS: BASO # 0.1 10*3/uL (0.0-0.1); BASO % 0.7 % (0.0-1.0); EOS # 0.6 10*3/uL (0.0-0.4); EOS % 5.4 % (1.0-4.0); HEMATOCRIT 35.6 % (37.0-47.0); HEMOGLOBIN 11.2 g/dl (12.0-16.0); IG # 0.2 10*3/uL (0.0-0.1); LYMPH # 0.9 10*3/uL (1.3-4.4); LYMPH % 8.7 % (27.0-41.0); MEAN CORPUSCULAR HGB 28.9 pg (27.0-31.0); MEAN CORPUSCULAR HGB CONC 31.5 g/dl (33.0-37.0); MEAN PLATELET VOLUME 8.8 fl (9.6-12.3); MONO # 0.8 10*3/uL (0.1-1.0); MONO % 7.1 % (3.0-9.0); NEUT # 8.3 10*3/uL (2.3-7.9); NEUT % 76.1 % (47.0-73.0); PLATELET COUNT AUTOMATED 254 10*3/uL (130-400); RED BLOOD COUNT 3.87 10*6/uL (4.10-5.10); RED CELL DISTRI WIDTH 15.7 % (0-14.5); WHITE BLOOD COUNT 10.9 10*3/uL (4.8-10.8)
[2017-06-02 08:00] VITALS: BP 113/64
[2017-06-02 10:27] LABS: BUN 10 mg/dl (7-24); CARBON DIOXIDE 25 mmol/L (21-32); CHLORIDE 110 mmol/L (98-107); EST GLOM FILT AFRICAN AMERICAN > 60 ml/min; GLUCOSE 93 mg/dL (65-99); POTASSIUM 3.9 mmol/L (3.5-5.1); SODIUM 141 mmol/L (136-145)
[2017-06-02 12:00] VITALS: BP 143/68
[2017-06-02 16:31] VITALS: BP 150/95
[2017-06-02 20:14] VITALS: BP 103/52
[2017-06-03 05:55] LABS: BUN 8 mg/dl (7-24); CARBON DIOXIDE 25 mmol/L (21-32); CHLORIDE 111 mmol/L (98-107); EST GLOM FILT AFRICAN AMERICAN > 60 ml/min; GLUCOSE 86 mg/dL (65-99); POTASSIUM 4.2 mmol/L (3.5-5.1); SODIUM 141 mmol/L (136-145)
[2017-06-03 06:19] LABS: BASO # 0.1 10*3/uL (0.0-0.1); BASO % 0.8 % (0.0-1.0); EOS # 0.5 10*3/uL (0.0-0.4); EOS % 4.2 % (1.0-4.0); HEMATOCRIT 32.4 % (37.0-47.0); HEMOGLOBIN 10.6 g/dl (12.0-16.0); IG # 0.2 10*3/uL (0.0-0.1); LYMPH % 9.6 % (27.0-41.0); MEAN CELL VOLUME 90.3 fl (81.0-99.0); MEAN CORPUSCULAR HGB 29.5 pg (27.0-31.0); MEAN CORPUSCULAR HGB CONC 32.7 g/dl (33.0-37.0); MEAN PLATELET VOLUME 9.1 fl (9.6-12.3); MONO % 9.3 % (3.0-9.0); NEUT # 7.9 10*3/uL (2.3-7.9); PLATELET COUNT AUTOMATED 225 10*3/uL (130-400); RED BLOOD COUNT 3.59 10*6/uL (4.10-5.10); RED CELL DISTRI WIDTH 15.5 % (0-14.5); WHITE BLOOD COUNT 10.6 10*3/uL (4.8-10.8)
[2017-06-03 08:00] VITALS: BP 106/61
[2017-06-03 16:00] VITALS: BP 113/56
[2017-06-03 20:27] VITALS: BP 106/81
[2017-06-04] VITALS: BP 119/67
[2017-06-04 05:45] LABS: CHLORIDE 108 mmol/L (98-107); POTASSIUM 3.8 mmol/L (3.5-5.1); SODIUM 140 mmol/L (136-145)
[2017-06-04 05:50] LABS: BUN 6 mg/dl (7-24); CARBON DIOXIDE 24 mmol/L (21-32); EST GLOM FILT AFRICAN AMERICAN > 60 ml/min; GLUCOSE 75 mg/dL (65-99); MAGNESIUM 1.4 mg/dL (1.5-2.1)
[2017-06-04 05:59] LABS: BASO # 0.1 10*3/uL (0.0-0.1); BASO % 0.8 % (0.0-1.0); EOS # 0.5 10*3/uL (0.0-0.4); EOS % 5.3 % (1.0-4.0); HEMATOCRIT 32.1 % (37.0-47.0); HEMOGLOBIN 10.6 g/dl (12.0-16.0); IG # 0.2 10*3/uL (0.0-0.1); LYMPH # 1.2 10*3/uL (1.3-4.4); LYMPH % 12.7 % (27.0-41.0); MEAN CELL VOLUME 89.9 fl (81.0-99.0); MEAN CORPUSCULAR HGB 29.7 pg (27.0-31.0); MEAN PLATELET VOLUME 9.3 fl (9.6-12.3); MONO # 0.9 10*3/uL (0.1-1.0); MONO % 9.5 % (3.0-9.0); NEUT # 6.6 10*3/uL (2.3-7.9); NEUT % 69.4 % (47.0-73.0); PLATELET COUNT AUTOMATED 202 10*3/uL (130-400); RED BLOOD COUNT 3.57 10*6/uL (4.10-5.10); RED CELL DISTRI WIDTH 15.4 % (0-14.5); WHITE BLOOD COUNT 9.5 10*3/uL (4.8-10.8)
[2017-06-04 08:00] VITALS: BP 128/70
[2017-06-04 12:00] VITALS: BP 121/61
[2017-06-04] MEDS ORDERED: Carafate1 GM PO ×4 (15:06→15:48)
[2017-06-04] MEDS ORDERED: TRAMADOL HCL50 MG PO ×4 (15:06→15:47)
== END 2017-06-04 17:10 | disposition other institution (70) | DRG 871 ==
LOC: ED 16:30 → ICCU 21:15 → EDHOLD 21:15 → ICCU 21:32 → 4E 06-01 17:39
PROVIDERS: Family Medicine; Internal Medicine; Internal Medicine Hospice and Palliative Medicine; Physician Assistant
PROC: 0DB68ZX Excision of Stomach, Via Natural or Artificial Opening Endoscopic, Diagnostic (ICD-10-PCS; 2017-05-31)
PROC: 30233N1 Transfusion of Nonautologous Red Blood Cells into Peripheral Vein, Percutaneous Approach (ICD-10-PCS; principal; 2017-06-01)
DX: A41.9 Sepsis, unspecified organism (principal); N17.0 Acute kidney failure with tubular necrosis; K29.51 Unspecified chronic gastritis with bleeding; K92.0 Hematemesis; E87.1 Hypo-osmolality and hyponatremia; R65.20 Severe sepsis without septic shock; K44.9 Diaphragmatic hernia without obstruction or gangrene; G89.29 Other chronic pain; M54.5 Low back pain; K29.70 Gastritis, unspecified, without bleeding; J44.9 Chronic obstructive pulmonary disease, unspecified; F32.9 Major depressive disorder, single episode, unspecified; I10 Essential (primary) hypertension; K21.9 Gastro-esophageal reflux disease without esophagitis; E78.5 Hyperlipidemia, unspecified; D47.3 Essential (hemorrhagic) thrombocythemia; R73.9 Hyperglycemia, unspecified; E83.42 Hypomagnesemia; D64.9 Anemia, unspecified; Z86.718 Personal history of other venous thrombosis and embolism; Z87.891 Personal history of nicotine dependence; Z93.3 Colostomy status; Z98.51 Tubal ligation status; Z95.5 Presence of coronary angioplasty implant and graft; Z98.1 Arthrodesis status; Z88.1 Allergy status to other antibiotic agents; Z88.8 Allergy status to other drugs, medicaments and biological substances; Z82.49 Family history of ischemic heart disease and other diseases of the circulatory system; Z83.3 Family history of diabetes mellitus

== ENCOUNTER → 2017-06-18 | Outpatient (CLI) | payer MEDICARE ==
[~2017-06-18] MED LIST changes: +ALMACONE LIQUI355 ML PO; +Carafate1 GM PO; +DESITIN DIAPER28 GM T; +VENLAFAXINE37.5 M1 PO; +VITAMIN D31000 UNI1 PO
[2017-06-18 16:28] LABS: BASO # 0.1 10*3/uL (0.0-0.1); BASO % 0.9 % (0.0-1.0); EOS # 0.5 10*3/uL (0.0-0.4); EOS % 4.8 % (1.0-4.0); HEMATOCRIT 39.2 % (37.0-47.0); HEMOGLOBIN 12.8 g/dl (12.0-16.0); LYMPH # 1.4 10*3/uL (1.3-4.4); LYMPH % 14.4 % (27.0-41.0); MEAN CELL VOLUME 88.5 fl (81.0-99.0); MEAN CORPUSCULAR HGB 28.9 pg (27.0-31.0); MEAN CORPUSCULAR HGB CONC 32.7 g/dl (33.0-37.0); MEAN PLATELET VOLUME 9.3 fl (9.6-12.3); MONO # 0.8 10*3/uL (0.1-1.0); MONO % 8.5 % (3.0-9.0); NEUT # 6.7 10*3/uL (2.3-7.9); PLATELET COUNT AUTOMATED 441 10*3/uL (130-400); RED BLOOD COUNT 4.43 10*6/uL (4.10-5.10); WHITE BLOOD COUNT 9.6 10*3/uL (4.8-10.8)
[2017-06-18 16:53] LABS: ALKALINE PHOSPHATASE 227 U/L (45-117); BUN 12 mg/dl (7-24); CHLORIDE 98 mmol/L (98-107); CREATININE 0.98 mg/dL (0.55-1.02); POTASSIUM 4.5 mmol/L (3.5-5.1); SGOT/AST 39 IU/L (3-35); SGPT/ALT 45 U/L (12-78); SODIUM 133 mmol/L (136-145)
== END | disposition home or self-care (01) ==
LOC: LAB 15:15
PROVIDERS: Internal Medicine
DX: R19.7 Diarrhea, unspecified (principal)

== ENCOUNTER → 2017-06-19 | Outpatient (CLI) | payer MEDICARE | END | disposition home or self-care (01) | LOC: LAB 10:54 | DX: R19.7 Diarrhea, unspecified (principal) ==

== ENCOUNTER 2017-06-21 23:19 | Emergency (ER) | payer MEDICARE ==
[~2017-06-21] VITALS: Ht 157.4 cm; Wt 61.2 kg
--- NOTE | ~2017-06-21 | EKG ---
[place], [place] ELECTROCARDIOGRAM REPORT NAME: COLTON GOLDMAN UNIT #: [id number] ROOM: DOCTOR: MATEO FAROOQ,ALAN BIRTHDATE: [birth year] DOS: 06/21/2017 TIME: 2326 hours. INTERPRETATION: 1. Sinus rhythm. 2. Incomplete right bundle branch block. 3. Non-diagnosed ST elevation in the inferior leads. 4. Probable atrial enlargement. ALAN GALINDO MD CM:EKGRPT:ELECTROCARDIOGRAM REPORT [id number] 1503 ALAN GALINDO MD
[2017-06-21 23:46] LABS: BASO # 0.1 10*3/uL (0.0-0.1); BASO % 0.8 % (0.0-1.0); EOS # 0.2 10*3/uL (0.0-0.4); EOS % 1.8 % (1.0-4.0); HEMATOCRIT 43.4 % (37.0-47.0); HEMOGLOBIN 14.3 g/dl (12.0-16.0); LYMPH # 1.3 10*3/uL (1.3-4.4); LYMPH % 10.2 % (27.0-41.0); MEAN CELL VOLUME 88.2 fl (81.0-99.0); MEAN CORPUSCULAR HGB 29.1 pg (27.0-31.0); MEAN CORPUSCULAR HGB CONC 32.9 g/dl (33.0-37.0); MEAN PLATELET VOLUME 8.9 fl (9.6-12.3); MONO % 7.5 % (3.0-9.0); PLATELET COUNT AUTOMATED 425 10*3/uL (130-400); RED BLOOD COUNT 4.92 10*6/uL (4.10-5.10); WHITE BLOOD COUNT 12.8 10*3/uL (4.8-10.8)
[2017-06-21 23:52] VITALS: BP 136/86
[2017-06-21 23:58] LABS: ACT PARTIAL THROMBO TIME 20.6 SECONDS (20.8-31.5)
[2017-06-22 00:05] LABS: ALBUMIN 3.3 gm/dl (3.1-4.5); ALKALINE PHOSPHATASE 237 U/L (45-117); BUN 30 mg/dl (7-24); CHLORIDE 94 mmol/L (98-107); CREATININE 2.06 mg/dL (0.55-1.02); MAGNESIUM 1.4 mg/dL (1.5-2.1); SGOT/AST 49 IU/L (3-35); SGPT/ALT 65 U/L (12-78); SODIUM 126 mmol/L (136-145); TOTAL PROTEIN 8.4 gm/dL (6.4-8.2)
[2017-06-22 00:10] LABS: TROPONIN I < 0.015 ng/ml (<0.045)
[2017-06-22 00:11] LABS: POTASSIUM 6.6 mmol/L (3.5-5.1)
== END 2017-06-22 03:14 | disposition short-term general hospital (02) ==
LOC: ED 23:19
PROVIDERS: Student in an Organized Health Care Education/Training Program
DX: N17.9 Acute kidney failure, unspecified (principal); E87.1 Hypo-osmolality and hyponatremia; E87.5 Hyperkalemia; I25.10 Atherosclerotic heart disease of native coronary artery without angina pectoris; I10 Essential (primary) hypertension; E78.5 Hyperlipidemia, unspecified; J44.9 Chronic obstructive pulmonary disease, unspecified; K21.9 Gastro-esophageal reflux disease without esophagitis; Z86.718 Personal history of other venous thrombosis and embolism; Z93.3 Colostomy status; Z88.1 Allergy status to other antibiotic agents; Z88.8 Allergy status to other drugs, medicaments and biological substances; Z79.82 Long term (current) use of aspirin; Z79.899 Other long term (current) drug therapy; Z87.891 Personal history of nicotine dependence

== ENCOUNTER → 2017-06-29 | Outpatient (CLI) | payer MEDICARE ==
[2017-06-29 11:05] LABS: ALBUMIN 3.2 gm/dl (3.1-4.5); CREATININE 1.44 mg/dL (0.55-1.02); PHOSPHOROUS 4.4 mg/dL (2.5-4.9); POTASSIUM 4.9 mmol/L (3.5-5.1)
== END | disposition home or self-care (01) ==
LOC: LAB 10:16
PROVIDERS: Internal Medicine
DX: N18.4 Chronic kidney disease, stage 4 (severe) (principal); R79.89 Other specified abnormal findings of blood chemistry

== ENCOUNTER 2017-09-16 16:57 | Inpatient (IN) | payer MEDICARE ==
[~2017-09-16] VITALS: Ht 162.6 cm; Wt 68.7 kg
--- NOTE | ~2017-09-16 | PR ---
[place], [place] PROGRESS NOTE NAME: [facility]AN [facility] [id number] UNIT #: [id number] ROOM: 519 DOCTOR: LASHANDA YE MD BIRTHDATE: [birth year] DOS: 09/19/2017 SUBJECTIVE: The patient is doing much better. She got her MediPort placed yesterday. Denies any nausea, vomiting. She is alert and oriented. REVIEW OF SYSTEMS: HEENT: No trouble swallowing. No double vision. No loss of vision. No pain. ENT AND RESPIRATORY: No wheeze. No change in voice. No cough. No shortness of breath. No coughing up blood. No epistaxis. CARDIOLOGIC: No chest pain. No dizziness. No irregular heartbeat. No leg edema. No palpitations. No shortness of breath. HEMATOLOGIC AND LYMPH: No past transfusion. No fatigue. No loss of appetite. No easy bruising. GASTROENEROLOGIC: No change in bowel habits. No vomiting blood. No abdominal cramping. No nausea. No vomiting. No diarrhea. No constipation. No blood in stool. FEMALE REPRODUCTIVE: No dyspareunia. No pelvic pain. MUSCULOSKELETAL: No back pain. No muscle pain or weakness. No tingling/numbness. UROLOGIC: No pain with urination. No difficulty urinating. No frequent urination. NEUROLOGIC: No burning pain in feet. No trouble with coordination. No loss of consciousness. No headache. No tingling/numbness. No memory loss. PHYSICAL EXAMINATION: GENERAL: She is a pleasant woman in no apparent distress. VITAL SIGNS: Stable. She is afebrile. HEENT: Normocephalic, atraumatic. NECK AND THYROID: Supple. No JVD, thyromegaly, or lymphadenopathy. HEART: Normal S1, S2. Regular rate and rhythm. LUNGS: Clear to auscultation and percussion. ABDOMEN: Soft. Nontender, nondistended. Bowel sounds present. EXTREMITIES: Normal ROM. No clubbing. No edema. LABORATORY DATA: White count of 10.1, hemoglobin 9.8, hematocrit 28.6, platelet count 173,000. Glucose of 86, EGFR is 41, sodium 138, potassium 4.8, chloride 112, bicarbonate 18, calcium 8.0, total protein 5.7, SGOT 12, SGPT 15. ASSESSMENT: 1. Leukocytosis, which is improved. 2. Anemia of chronic disease. 3. Dehydration. 4. Weight loss. 5. Nodule in the upper right lobe of the lung. PLAN: I will review the records from [facility] where she had surgery done and then subsequently she had ischemic bowel and went to [place] and had surgery done there. I am going to review all the records as well as records from [facility] depending on further intervention. The patient will continue to get IV fluid hydration. Ample time was given to the patient to ask [place], [place] PROGRESS NOTE NAME: COLTON GOLDMAN [place] UNIT #: [id number] ROOM: [facility] DOCTOR: LASHANDA YE MD BIRTHDATE: [birth year] mn questions. LASHANDA YE MD CM:BYRON 09 1133 LASHANDA YE MD 09/19/17 1133 interface
--- NOTE | ~2017-09-16 | CON ---
[place], [place] REPORT OF CONSULTATION NAME: COLTON GOLDMAN [facility] #: [id number] UNIT #: [id number] ROOM: 519 DOCTOR: LASHANDA YE MD BIRTHDATE: [birth year] DOS: 09/18/2017 HISTORY OF PRESENT ILLNESS: The patient is a pleasant 76-year-old Euro-German woman, presented to [facility] because of hyperkalemia, acute renal failure and dehydration. She was initially seen at Dr. Gordon's office and lab work was obtained, subsequently was admitted. On routine CBC examination, she was found to have metamyelocytes, myelocytes, leukocytosis, anemia, and was consulted for further evaluation and management. The patient has been complaining to be weak and dizzy for the past few days. PAST MEDICAL HISTORY: Significant for chronic back pain, chronic right hip pain, COPD, depression, essential hypertension, gastritis, GERD, history of ischemic bowel disease, hiatal hernia, hyperlipidemia, hyperglycemia, leukocytosis, and mass noted in the upper right lung. PAST SURGICAL HISTORY: Colostomy, history of decompressive lumbar laminectomy, and history of tubal ligation. SOCIAL HISTORY: Denies smoking, drinking. She was a former smoker. FAMILY HISTORY: Father unknown. Mother diabetes, at age 86. ALLERGIES: BACITRACIN, NEOMYCIN, POLYMYXIN B, PRAMOXINE. MEDICATIONS: Coreg and Tylenol. REVIEW OF SYSTEMS: CONSTITUTIONAL: No chills. No fatigue. No fever. No loss of appetite. No night sweats. No weakness. No weight loss. HEENT: No trouble swallowing. No loss of smell. No loss of hearing. No double vision. No pain. No discharge. ENT AND RESPIRATORY: No wheeze. No sore throat. No change in voice. No hearing loss. No nose bleed. No cough. No trouble breathing through nose. No shortness of breath. No coughing up blood. No epistaxis. CARDIOVASCULAR: No chest pain. No dizziness. No irregular heartbeat. No leg edema. No pain in legs while walking. No palpitations. No shortness of breath. DERMATOLOGIC: No acne. No hives. No laceration. No mole. No rash. ENDOCRINE: No cold intolerance. No diabetes. No fatigue. No hot flashes. No polydipsia. No polyuria. No urinating frequently. No weight loss. HEMATOLOGIC AND LYMPH: No fatigue. No easy bruising. GASTROENTEROLOGIC: No change in bowel habits. No indigestion. No frequent bloating. No vomiting blood. No abdominal cramping. No nausea. No heartburn. No vomiting. No abdominal pain. No dysphagia. No diarrhea. No constipation. No blood in stool. FEMALE REPRODUCTIVE: No vaginal itching. No difficulty urinating. No heavy periods. No dyspareunia. No sexually active. No dysmenorrhea. No pelvic pain. No breast pain. No nipple discharge. No abnormal vaginal discharge. No hot flashes. MUSCULOSKELETAL: No back pain. No muscle pain or weakness. No neck pain. No [place], [place] REPORT OF CONSULTATION NAME: COLTON GOLDMAN UNIT #: [id number] ROOM: [facility] DOCTOR: LASHANDA YE MD BIRTHDATE: [birth year] tingling/numbness. No swelling/bruising. No osteoporosis treatment. OPHTHALMOLOGIC: No double vision. No diminished vision. No loss of vision. UROLOGIC: No dysuria. No frequent nighttime urination. No irregular periods. No pain with urination. No difficulty urinating. No blood in urine. No frequent urination. No urinary incontinence. NEUROLOGIC: No loss of sensation in specific body area. No vertigo. No burning pain in feet. No trouble with balance. No trouble with coordination. No loss of consciousness. No loss of feeling/power. No confusion. No headache. No tingling/numbness. PSYCHOLOGIC: No tinnitus. No headaches. No shortness of breath. No weight decrease. No nausea. No vomiting. No abdominal discomfort. No constipation. No diarrhea. No depression. No anxiety. PHYSICAL EXAMINATION: VITAL SIGNS: Stable, afebrile. GENERAL: General appearance: Pleasant woman, in no apparent distress. HEENT: Oral mucosa appears intact. The external ears are normal in appearance. Nares are patent without lesions, exudates, erythema, or inflammation. Tongue is symmetrical. Uvula is midline. NECK AND THYROID: Neck supple without palpable masses. Trachea is midline. No thyromegaly. No carotid bruit or JVD. BREASTS: Normal. Nipples unremarkable. No drainage. No lumps felt on either side. HEART: Normal S1, S2, without significant murmur, rub, or gallop. LUNGS: Clear to auscultation and percussion with good air entry bilaterally. The patient is breathing easily without the use of accessory muscles. Diaphragmatic excursions are intact. ABDOMEN: No costovertebral angle tenderness. Soft. No organomegaly or masses. Nontender. No hernias present. Liver and spleen are not palpable. LYMPHATIC: No adenopathy noted in the cervical, supraclavicular, axillary, or inguinal regions. NEUROLOGIC: Nonfocal. Oriented to person, place, and time. MENTAL STATUS: Appropriate for mood and affect. PERIPHERAL PULSES: No varicosities. Femoral and pedal pulses are palpable. EXTREMITIES: Without cyanosis, clubbing, or edema. No gross anomalies. LABORATORY DATA: From 09/17/2017, white count of 12.4, hemoglobin 10.5, hematocrit 31.1, platelet count 222 with 4 metamyelocytes, myelocytes 1. From 09/16/2017, sodium 133, potassium 4.9, chloride 103, bicarbonate 22. Labs from 09/18/2017, white count of 10.1, hemoglobin 9.8, hematocrit 28.6, and platelet count 173. Peripheral smear does not show any metamyelocytes or myelocytes at this time. ASSESSMENT: 1. Leukocytosis which is associated with metamyelocytes and myelocytes, probably secondary to bone marrow stimulation, which is getting better. 2. Anemia, probably chronic disease. 3. Dehydration. 4. Hyperkalemia. 5. Weight loss. [place], [place] REPORT OF CONSULTATION NAME: COLTON GOLDMAN UNIT #: [id number] ROOM: [facility] DOCTOR: LASHANDA YE MD BIRTHDATE: [birth year] 6. Leukocytosis, resolved. 7. Mass in the upper lobe of right lung. PLAN: Her counts got better. Her white count is resolved and her abnormal peripheral smear has got better. We will keep a close watch and follow her counts closely. In the meantime, she is getting a MediPort placement as well as workup for right upper lobe mass should be initiated for further evaluation. We will follow up. Thanks for consulting and letting me participate in the care of this interesting patient. LASHANDA YE MD CM:CONSTR:REPORT OF CONSULTATION 1200 09/19/17 0219 interface
[2017-09-16 17:19] VITALS: BP 132/70
--- NOTE | 2017-09-16 17:19 | NUR ---
A 76, admitted to , under the services of DAMION Suazo MD with a diagnosis of ACVUTE RENAL FAILURE/DEHYDRATION. Chief complaint is NAUSEA. Patient arrived via wheel chair from [place]. Monitor applied. Initial assessment completed. Vital signs taken and recorded. DAMION SUAZO MD notified of admission to the unit. Orders received. See assessment for past medical history, medications and allergies. Patient and/or family oriented to unit. [facility] visitation policy reviewed. Clothing/patient valuable form completed. FADIA NICOLE
[2017-09-16 18:04] LABS: HEMATOCRIT 39.8 % (37.0-47.0); HEMOGLOBIN 13.9 g/dl (12.0-16.0); MEAN CORPUSCULAR HGB 29.7 pg (27.0-31.0); MEAN CORPUSCULAR HGB CONC 34.9 g/dl (33.0-37.0); MEAN PLATELET VOLUME 9.3 fl (9.6-12.3); PLATELET COUNT AUTOMATED 326 10*3/uL (130-400); RED BLOOD COUNT 4.68 10*6/uL (4.10-5.10); RED CELL DISTRI WIDTH 14.1 % (0-14.5); WHITE BLOOD COUNT 16.3 10*3/uL (4.8-10.8)
[2017-09-16 18:13] LABS: INTERNATIONAL NORM RATIO 0.9 (2.0-3.5)
[2017-09-16 18:19] LABS: ALBUMIN 3.6 gm/dl (3.1-4.5); CREATININE 1.89 mg/dL (0.55-1.02); TOTAL PROTEIN 8.1 gm/dL (6.4-8.2)
[2017-09-16 18:20] LABS: POTASSIUM 5.3 mmol/L (3.5-5.1)
[2017-09-16 18:23] LABS: ATYPICAL LYMPHS 2 % (0-0); BASOPHILS 1 % (0-1); TOTAL CELLS COUNTED 100 #CELLS
[2017-09-16 18:24] LABS: PLATELET SUFFICIENCY NORMAL (NORMAL)
[2017-09-16 19:38] VITALS: BP 132/70
--- NOTE | 2017-09-16 20:00 | NUR ---
MEDICATED WITH TYLENOL FOR C/O HEADACHE.
--- NOTE | 2017-09-16 20:00 | NUR ---
TYLENOL GIVEN FOR C/O HEADACHE.
--- NOTE | 2017-09-16 20:00 | NUR ---
ASSIST OF 1 UP TO BATHROOM. SLOW BUT STEADY. TOLERATED FAIR.
--- NOTE | 2017-09-16 20:08 | NUR ---
SPOKE WITH DR STEWART ABOUT CONSULT, WILL SEE PT IN THE AM .
--- NOTE | 2017-09-16 20:09 | NUR ---
PT STATED THAT SHE HAS ALREADY HAD HER FLU AND PNEUMONIA VACCINES AND WILL NOT NEED THEM THIS ADMISSION.
[2017-09-16 21:05] VITALS: BP 138/71
--- NOTE | 2017-09-16 21:06 | NUR ---
MEDICATED WITH ZOFRAN FOR C/O NAUSEA.
[2017-09-16 21:47] LABS: CREATININE 1.69 mg/dL (0.55-1.02); POTASSIUM 4.9 mmol/L (3.5-5.1)
--- NOTE | 2017-09-16 22:00 | NUR ---
VOICES NO FURTHER C/O HEADACHE AT THIS TIME. TYLENOL EFFECTIVE.
--- NOTE | 2017-09-16 22:30 | NUR ---
VOICES NO FURTHER C/O NAUSEA; ZOFRAN EFFECTIVE.
--- NOTE | 2017-09-16 23:17 | NUR ---
DR ALVAREZ AWARE THAT EKG IS ON CHART AND 2200 BMP IS COMPLETE. ALSO MADE AWARE OF PATIENT REQUESTING SOMETHING FOR INDEGESTION
[2017-09-17] VITALS: BP 154/85
[2017-09-17 06:10] VITALS: BP 116/71
[2017-09-17 06:49] LABS: MEAN CELL VOLUME 86.6 fl (81.0-99.0); MEAN CORPUSCULAR HGB 29.2 pg (27.0-31.0); MEAN CORPUSCULAR HGB CONC 33.8 g/dl (33.0-37.0); MEAN PLATELET VOLUME 9.2 fl (9.6-12.3); RED BLOOD COUNT 3.59 10*6/uL (4.10-5.10); RED CELL DISTRI WIDTH 14.2 % (0-14.5); WHITE BLOOD COUNT 12.4 10*3/uL (4.8-10.8)
[2017-09-17 07:01] LABS: HEMATOCRIT 31.1 % (37.0-47.0); HEMOGLOBIN 10.5 g/dl (12.0-16.0); PLATELET COUNT AUTOMATED 222 10*3/uL (130-400)
[2017-09-17 07:18] LABS: ACT PARTIAL THROMBO TIME 24.7 SECONDS (20.8-31.5); INTERNATIONAL NORM RATIO 0.9 (2.0-3.5)
[2017-09-17 07:20] LABS: ALBUMIN 2.5 gm/dl (3.1-4.5); CREATININE 1.53 mg/dL (0.55-1.02); PHOSPHOROUS 2.6 mg/dL (2.5-4.9); POTASSIUM 4.2 mmol/L (3.5-5.1); TOTAL PROTEIN 5.7 gm/dL (6.4-8.2)
[2017-09-17 07:21] LABS: BASOPHILS 1 % (0-1); PLATELET SUFFICIENCY NORMAL (NORMAL); TOTAL CELLS COUNTED 100 #CELLS
[2017-09-17 07:25] LABS: THYROID STIM HORMONE (HS) 1.27 uIU/ml (0.358-4.75)
--- NOTE | 2017-09-17 07:30 | NUR ---
A&0 X3. SKIN WARM, PINK, DRY AND INTACT. CORPORATE JOB TITLES EQUAL AND STRONG. CAPILLARY REFILL <3. MUCOUS MEMBRANES MOIST AND PINK. HEART SOUNDS NORMAL. LUNGS DIMMINSHED. ABDOMEN SOFT, NONTENDER AND NONDISTENDED. BS X4. PATIENT DENIES PAIN. PLEASANT AND COOPERATIVE. [facility]
[2017-09-17 08:00] VITALS: BP 124/52
[2017-09-17 08:13] LABS: VITAMIN D, 25-HYDROXY 19.6 ng/mL (30-100)
--- NOTE | 2017-09-17 08:30 | NUR ---
Chargeback Specialist in to talk to patient. Patient states lives at HOME ALONE with SON LIVES NEXT DOOR ON SAME PROPERTY. There are 4 steps in the home. Physician: DR RANDALL Pharmacy: [facility] Home health services: NONE Patient's level of ADLs: MINIMAL ASSIST Patient has working utilities: YES DME: NONE Follow-up physician's appointment after d/c: PREFERS TO MAKE HER OWN APPT Does patient want to access PORTAL?: Discharge plan WANTS TO GO HOME. REFUSES SNF AND HOME HEALTH. JORGE RODRIGUES
--- NOTE | 2017-09-17 10:30 | NUR ---
PATIENT UPSET ABOUT BEING IN THE HOSPITAL. PATIENT STAES, "THIS IS THE FIRST TIME I'VE CRIED SINCE THIS HAPPENED. I THINK IT'S FINALLY HITTING ME WITH TRACY COMING UP." SAT AND COMFORTED PATIENT, AND LET PATIENT EXPLAIN FEELINGS. WILL CONTINUE TO ASSESS. [facility]
[2017-09-17 12:00] VITALS: BP 138/62
[2017-09-17 16:00] VITALS: BP 102/59
--- NOTE | 2017-09-17 19:30 | NUR ---
CONTACTED DR. YE FOR A CONSULT DUE TO LEUKOCYTOSIS W/METAMYLOCYTOSIS. DR YE ORDERED CBC WITH DIFF DAILY AND FOLLW UP IN OFFICE IN 1 WEEK ON DISCHARGE.
[2017-09-17 20:00] VITALS: BP 117/50
--- NOTE | 2017-09-17 20:16 | NUR ---
1946 RESTING IN BED WATCHING TV. IV FLUIDS CONT. NO DISTRESS NOTED. CALL LIGHT IN REACH. ILEOSTOMY PATENT. STATES "IT JUST FEEL ALL TINGLY AND LARIOS THERE (AROUND THE SITE) ALL THE TIME. "
--- NOTE | 2017-09-17 22:07 | NUR ---
UP TO BR WITH 1 ASSIST. TOLERATED WELL. ILEOSTOMY EMPTIED. URINE SPEICMEN OBTAINED PER ORDER.
[2017-09-17 22:10] LABS: BILIRUBIN NEGATIVE (NEGATIVE); BLOOD TRACE-INTACT (NEGATIVE); CLARITY SL CLOUDY (CLEAR); COLOR YELLOW (YELLOW); GLUCOSE NEGATIVE (NEGATIVE); KETONE NEGATIVE (NEGATIVE); LEUKO ESTERASE 3+ (NEGATIVE); NITRITE NEGATIVE (NEGATIVE); PH 5.5 (5.0-9.0); UROBILINOGEN 0.2 E.U./dl (0.2-1.0)
--- NOTE | 2017-09-17 22:18 | NUR ---
TYLENOL 2 PO FOR C/O'S BACK PAIN. WILL MONITOR.
[2017-09-17 22:33] LABS: BACTERIA 1+; EPITHELIAL CELLS TNTC; WBC TNTC wbc/hpf (0-5)
[2017-09-18] VITALS (10 sets, daily range): BP systolic 92–138; BP diastolic 35–79
--- NOTE | 2017-09-18 04:11 | NUR ---
PT SLEEPING. NOT AWAKENED PER [facility] POLICY. CHEST RISES AND FALLS SYMMETRICALLY AND STEADILY. NO DISTRESS NOTED. CALL LIGHT IS WITHIN REACH.
--- NOTE | 2017-09-18 06:57 | NUR ---
PT REFUSED MORNING LABS. STATES SHE DOES NOT WANT THEM DUE TO HAVING THE MEDIPORT PLACED TODAY.
--- NOTE | 2017-09-18 07:30 | NUR ---
A&O X3. SKIN WARM, PINK, DRY AND INTACT. VITAL STABLES. CHARLENE. LINING MAKER HAND EQUAL. CAPILLARY REFILL <3 SECONDS. SKIN TURGOR GOOD. LUNGS DIMMINSED IN LOWER LOBES, OTHERWISE CLEAR. PO2 96% ON RA. HEART SOUNDS NORMAL. ABDOMEN SOFT, NONTENDER, NONDISTENDED. BS X4. NO COMPLIANTS OF PAIN. PLEASANT AND COOPERATIVE. WILL CONTINUE TO ASSESS. [facility]
--- NOTE | 2017-09-18 09:30 | NUR ---
PATIENT BATHED WITH HIBICLENS SOAP ON THE SIDE OF THE BED. PATIENT COOPERATIVE AND UNDERSTANDING. [facility]
[2017-09-18 10:38] LABS: ALBUMIN 2.3 gm/dl (3.1-4.5); CREATININE 1.26 mg/dL (0.55-1.02); POTASSIUM 4.8 mmol/L (3.5-5.1); TOTAL PROTEIN 5.7 gm/dL (6.4-8.2)
[2017-09-18 11:00] LABS: HEMATOCRIT 28.6 % (37.0-47.0); HEMOGLOBIN 9.8 g/dl (12.0-16.0); MEAN CELL VOLUME 86.9 fl (81.0-99.0); MEAN CORPUSCULAR HGB 29.8 pg (27.0-31.0); MEAN CORPUSCULAR HGB CONC 34.3 g/dl (33.0-37.0); PLATELET COUNT AUTOMATED 173 10*3/uL (130-400); RED BLOOD COUNT 3.29 10*6/uL (4.10-5.10); RED CELL DISTRI WIDTH 14.4 % (0-14.5); WHITE BLOOD COUNT 10.1 10*3/uL (4.8-10.8)
[2017-09-18 11:22] LABS: PLATELET SUFFICIENCY NORMAL (NORMAL); TOTAL CELLS COUNTED 100 #CELLS
--- NOTE | 2017-09-18 11:30 | NUR ---
PATIENT COMPLIANING OF HEADACHE 04/08. MICHELET HOFFMAN NOTIFIED. OKAY TO GIVE ACETAMINOPHEN 650MG. [facility]
--- NOTE | 2017-09-18 11:50 | NUR ---
PATIENT LEFT FLOOR VIA BED TO SURGERY FOR MEDIPORT PLACEMENT. CONDITION STABLE. [facility]
--- NOTE | 2017-09-18 13:00 | NUR ---
VITALS ASSESSMENT COULD NOT BE DONE DUE TO BEING OFF THE FLOOR FOR MEDIPORT PLACEMENT. [facility]
--- NOTE | 2017-09-18 14:44 | NUR ---
KAILEY MARES IN OR ROOM & REPLACED PTS COLOSTOMY APPLIANCE.
--- NOTE | 2017-09-18 15:50 | NUR ---
SPOKE TO DR OHARA REGARDING PTS DIET. ORDER RECIEVED
--- NOTE | 2017-09-18 22:00 | NUR ---
PATIENTS IV INFILTRATED. PT REFUSED NEW IV INSERTION. ALSO REFUSED MEDIPORT ACCESS. DR. NAFISA ALVAREZ AWARE.
--- NOTE | 2017-09-18 22:00 | NUR ---
PT REFUSED HEPARIN. RISKS AND BENEFITS EXPLAINED TO PT. DR. NAFISA ALVAREZ IS AWARE.
[2017-09-19] VITALS: BP 94/55
--- NOTE | 2017-09-19 07:30 | NUR ---
A&O X3. VITALS STABLE. SKIN WARM, PINK, DRY AND INTACT. SKIN TURGOR GOOD. CHARLENE. NUCLEAR MEDICINE PET CT TECHNOLOGIST EQUAL. CAPILLARY REFILL <3 SECONDS. LUNGS DIMMINISHED IN BASES, OTHERWISE CLEAR. PO2 95% ON RA. HEART SOUNDS NORMAL. ABDOMEN SOFT, NONTENDER, NONDISTENDED. BS HYPERACTIVE X4. MEDIPORT SITE SYMETRICAL, INTACT, AND ECCHYMOTIC. NOT WARM TO TOUCH. PLEASANT AND COOPERATIVE. WILL CONTINUE TO ASSESS. [facility]
[2017-09-19 08:00] VITALS: BP 138/64
--- NOTE | 2017-09-19 08:40 | NUR ---
ASSUMED CARE OF PATIENT. PATIENT WAS LYING IN BED, PLEASANT, COOPERATIVE, AND TALKATIVE. STUDENT IS HERE WORKING WITH PATIENT TODAY WELL.
--- NOTE | 2017-09-19 09:57 | NUR ---
PATIENT UP IN CHAIR. INSTRUCTED NOT TO GET UP WITHOUT HELP. PATIETNT IS A&O X3. WILL CONTINUE TO ASSESS. [facility]
--- NOTE | 2017-09-19 10:15 | NUR ---
PATIENT BACK TO BED. NOW SITTING UP ON THE SIDE OF THE BED. WILL CONTINUE TO ASSESS. [facility]
--- NOTE | 2017-09-19 11:00 | NUR ---
PATIENT RESTING IN BED WITH EYES CLOSED. NO DISTRESS NOTED. CALL LIGHT WITHIN REACH. HARSH [facility]
[2017-09-19 12:00] VITALS: BP 140/62
--- NOTE | 2017-09-19 12:15 | NUR ---
PATIENT AMBULATED TO BATHROOM WITH ONE PERSON ASSISST. ILEOSTOMY EMPTIED, 250CC OF GREEN LIQUID STOOL. PATIENT TOLERATED WELL. PATIETNT COMPLAINING OF UPSET STOMACH. HAS NOTHING PO. REFUSED ACCESS TO MEDIPORT. PETEY SALOMON RN NOTIFIED. [facility]
--- NOTE | 2017-09-19 13:30 | NUR ---
PT IS VERY FRUSTRATED AT THE FACT THAT THE DOCTOR HAD NOT PUT IN A DISCHARGE ORDER OF YET. CALLED DOCTOR TO RECEIVED DISCHARGE ORDER. PATIENT STATES SHE WOULD LEAVE AMA IF DISCHARGE ORDER WAS NOT OBTAINED.
--- NOTE | 2017-09-19 14:00 | NUR ---
PATIENT DISCHARGED TO HOME. TAKEN DOWN VIA WHEELCHAIR TO FAMILY CAR. CONDITION STABLE. [facility]
--- NOTE | 2017-09-19 14:15 | NUR ---
Discharge instructions reviewed with patient/family. Patient receptive and verbalizes understanding. Follow-up care arranged. Written instructions given to patient/family. PETEY SALOMON
[2017-09-23] MEDS ORDERED: ASPIRIN81 M1 PO (12:08)
== END 2017-09-19 14:15 | disposition home or self-care (01) | DRG 393 ==
LOC: 5E 16:57
PROVIDERS: Family Medicine; Internal Medicine; ADMIT Internal Medicine
DX: K94.13 Enterostomy malfunction (principal); N17.0 Acute kidney failure with tubular necrosis; E44.0 Moderate protein-calorie malnutrition; R65.10 Systemic inflammatory response syndrome (SIRS) of non-infectious origin without acute organ dysfunction; E87.5 Hyperkalemia; D63.8 Anemia in other chronic diseases classified elsewhere; E87.1 Hypo-osmolality and hyponatremia; N39.0 Urinary tract infection, site not specified; R73.9 Hyperglycemia, unspecified; E86.0 Dehydration; J44.9 Chronic obstructive pulmonary disease, unspecified; R91.8 Other nonspecific abnormal finding of lung field; I10 Essential (primary) hypertension; R26.2 Difficulty in walking, not elsewhere classified; K21.9 Gastro-esophageal reflux disease without esophagitis; K29.50 Unspecified chronic gastritis without bleeding; G89.29 Other chronic pain; M54.9 Dorsalgia, unspecified; M25.551 Pain in right hip; R91.1 Solitary pulmonary nodule; K44.9 Diaphragmatic hernia without obstruction or gangrene; D72.825 Bandemia; E78.2 Mixed hyperlipidemia; R74.8 Abnormal levels of other serum enzymes; F32.9 Major depressive disorder, single episode, unspecified; Y83.8 Other surgical procedures as the cause of abnormal reaction of the patient, or of later complication, without mention of misadventure at the time of the procedure; Z90.89 Acquired absence of other organs; Z98.51 Tubal ligation status; Z83.3 Family history of diabetes mellitus; Z82.49 Family history of ischemic heart disease and other diseases of the circulatory system; Z88.8 Allergy status to other drugs, medicaments and biological substances; Z79.899 Other long term (current) drug therapy; Z86.718 Personal history of other venous thrombosis and embolism; Z87.891 Personal history of nicotine dependence; Y92.89 Other specified places as the place of occurrence of the external cause; Z68.23 Body mass index [BMI] 23.0-23.9, adult

== ENCOUNTER → 2017-09-16 | Outpatient (CLI) | payer MEDICARE ==
[2017-09-16 11:40] LABS: HEMATOCRIT 42.2 % (37.0-47.0); HEMOGLOBIN 14.7 g/dl (12.0-16.0); MEAN CELL VOLUME 84.9 fl (81.0-99.0); MEAN CORPUSCULAR HGB 29.6 pg (27.0-31.0); MEAN CORPUSCULAR HGB CONC 34.8 g/dl (33.0-37.0); MEAN PLATELET VOLUME 9.7 fl (9.6-12.3); PLATELET COUNT AUTOMATED 368 10*3/uL (130-400); RED BLOOD COUNT 4.97 10*6/uL (4.10-5.10); RED CELL DISTRI WIDTH 14.1 % (0-14.5); WHITE BLOOD COUNT 19.5 10*3/uL (4.8-10.8)
[2017-09-16 12:12] LABS: ALBUMIN 3.6 gm/dl (3.1-4.5); BASOPHILS 3 % (0-1); CREATININE 2.42 mg/dL (0.55-1.02); PHOSPHOROUS 3.7 mg/dL (2.5-4.9); PLATELET SUFFICIENCY NORMAL (NORMAL); TOTAL CELLS COUNTED 100 #CELLS
[2017-09-16 12:31] LABS: POTASSIUM 6.4 mmol/L (3.5-5.1)
== END | disposition home or self-care (01) ==
LOC: IV THERAPY 11:00 → EDSTATUS 11:00 → LAB 11:03
PROVIDERS: Internal Medicine
DX: R53.83 Other fatigue (principal)

== ENCOUNTER 2017-10-08 16:44 | Inpatient (IN) | payer MEDICARE ==
[~2017-10-08] VITALS: Ht 162.5 cm; Wt 60.8 kg
[2017-10-08 16:53] VITALS: BP 128/68
[2017-10-08] MEDS ORDERED: VITAMIN D32000 UNIT PO (16:54)
[2017-10-08] MEDS ORDERED: NITROSTAT0.4 MG SL (16:54)
[2017-10-08] MEDS ORDERED: LIPITOR40 MG PO (16:55)
[2017-10-08] MEDS ORDERED: PRILOSEC20 M1 PO (16:55)
[2017-10-08] MEDS ORDERED: SYMB160 INH (16:55)
[2017-10-08] MEDS ORDERED: NEURONTIN300 MG PO (16:56)
[2017-10-08] MEDS ORDERED: EFFEXOR XR37.5 M1 PO (16:56)
[2017-10-08 17:41] LABS: CREATININE 2.66 mg/dL (0.55-1.02); POTASSIUM 5.4 mmol/L (3.5-5.1)
--- NOTE | 2017-10-08 18:05 | NUR ---
MEDIPORT ACCESSED. FLUSHES EASILY BUT UNABLE TO GET BLOOD RETURN. CATH SRINIVASAN ORDERED. NEL EGAN RN
[2017-10-08 18:32] LABS: HEMATOCRIT 32.8 % (37.0-47.0); MEAN CELL VOLUME 87.5 fl (81.0-99.0); MEAN CORPUSCULAR HGB 29.3 pg (27.0-31.0); MEAN CORPUSCULAR HGB CONC 33.5 g/dl (33.0-37.0); PLATELET COUNT AUTOMATED 329 10*3/uL (130-400); RED BLOOD COUNT 3.75 10*6/uL (4.10-5.10); RED CELL DISTRI WIDTH 14.2 % (0-14.5); WHITE BLOOD COUNT 8.7 10*3/uL (4.8-10.8)
[2017-10-08 18:39] LABS: PHOSPHOROUS 4.4 mg/dL (2.5-4.9)
[2017-10-08 18:40] VITALS: BP 148/67
[2017-10-08] MEDS ORDERED: PROTONIX40 MG PO (18:44)
[2017-10-08] MEDS ORDERED: K-TAB20 MEQ PO (18:45)
[2017-10-08] MEDS ORDERED: ANTI-DIARRHEAL2 MG PO (18:47)
--- NOTE | 2017-10-08 18:48 | NUR ---
PHONED PATIENT'S PHARMACY FOR INFORMATION RE: HOME MEDS AND UPDATED/CORRECTED MED REC ACCORDINGLY.
--- NOTE | 2017-10-08 18:53 | NUR ---
NO BLOOD RETURN AFTER CATH SRINIVASAN HAS DWELLED FOR 30 MINUTES. CALLED TRAVIS ON 5E TO NOTIFY HER THAT IT WILL NEED TO BE ATTEMPTED AGAIN AT 2014 AND THAT I CANNOT START HER IV FLUIDS AT THIS TIME. NEL EGAN RN
[2017-10-08 18:56] LABS: PLATELET SUFFICIENCY NORMAL (NORMAL); TOTAL CELLS COUNTED 100 #CELLS
[2017-10-08 19:15] VITALS: BP 109/71
[2017-10-08 20:07] VITALS: BP 109/71
--- NOTE | 2017-10-08 20:12 | NUR ---
A 77, admitted to 5E, under the services of DAMION Suazo MD with a diagnosis of DEHYDRATION. Chief complaint is WEAKNESS. Patient arrived via wheel chair from ER. Monitor applied. Initial assessment completed. Vital signs taken and recorded. DAMION SUAZO MD notified of admission to the unit. Orders received. See assessment for past medical history, medications and allergies. Patient and/or family oriented to unit. [facility] visitation policy reviewed. Clothing/patient valuable form completed. PHILLY BATEMAN
[2017-10-09] VITALS: BP 90/56
[2017-10-09 07:02] LABS: HEMATOCRIT 27.2 % (37.0-47.0); MEAN CELL VOLUME 88.3 fl (81.0-99.0); MEAN CORPUSCULAR HGB 29.2 pg (27.0-31.0); MEAN CORPUSCULAR HGB CONC 33.1 g/dl (33.0-37.0); MEAN PLATELET VOLUME 8.8 fl (9.6-12.3); PLATELET COUNT AUTOMATED 247 10*3/uL (130-400); RED BLOOD COUNT 3.08 10*6/uL (4.10-5.10); RED CELL DISTRI WIDTH 14.2 % (0-14.5); WHITE BLOOD COUNT 7.6 10*3/uL (4.8-10.8)
[2017-10-09 07:31] LABS: PLATELET SUFFICIENCY NORMAL (NORMAL); TOTAL CELLS COUNTED 100 #CELLS
[2017-10-09 07:33] LABS: POTASSIUM 4.5 mmol/L (3.5-5.1)
[2017-10-09 07:43] LABS: ALBUMIN 2.3 gm/dl (3.1-4.5); CREATININE 2.02 mg/dL (0.55-1.02); PHOSPHOROUS 4.1 mg/dL (2.5-4.9); TOTAL PROTEIN 5.6 gm/dL (6.4-8.2)
[2017-10-09 08:00] VITALS: BP 93/55
--- NOTE | 2017-10-09 08:00 | NUR ---
Implementation Specialist in to talk to patient. Patient states lives at HOME ALONE with SON LIVES NEXT DOOR ON SAME PROPERTY. HE HELPS WITH ALL OF HER NEEDS. There are 4 steps in the home. Physician: TONIA Pharmacy: [facility] Home health services: NONE Patient's level of ADLs: MINIMAL ASSIST Patient has working utilities: YES DME: [facility]NE Follow-up physician's appointment after d/c: PREFERS TO MAKE HER OWN APPT Does patient want to access PORTAL?: Discharge plan HOME. JORGE RODRIGUES PT COMES TO [facility] 3 DAYS A WEEK FOR IV HYDRATION. DENIES ANY DC NEEDS
[2017-10-09 12:00] VITALS: BP 93/58
--- NOTE | 2017-10-09 13:19 | NUR ---
Shift chart check completed.
--- NOTE | 2017-10-09 13:37 | NUR ---
PATIENT MEDICATED WITH PO TUMS FOR HEARTBURN
--- NOTE | 2017-10-09 15:56 | NUR ---
Nursing screen received and chart review completed. Recomemnd [employer] referral for d/c planning. Thank you for this consideration. France Herrera OTR/L
[2017-10-09 16:00] VITALS: BP 103/53
--- NOTE | 2017-10-09 19:20 | NUR ---
spoke with nursing assistant shift supervisor timo ren: patient needing new colostomy bag and appliance and none available. states she will check with other floors and find the necessary materials that are needed.
--- NOTE | 2017-10-09 19:32 | NUR ---
SPOKE WITH DR RANDALL RE: PATIENT REQUESTING IMODIUM FOR C/O "CONSTANT LIQUID DIARRHEA". NEW ORDERS RECEIVED AT THIS TIME FOR ONE TIME DOSE IMODIUM.
[2017-10-09 20:00] VITALS: BP 118/56
--- NOTE | 2017-10-09 21:18 | NUR ---
SPOKE WITH DR WRIGHT RE: PATIENT IV FLUIDS ORDER THAT IS ACTIVE HOWEVER FLUIDS NOT INFUSING AT THIS TIME. DR WRIGHT STATES THAT ORDER IS STILL VALID AND TO CONTINUE INFUSING IV FLUIDS AT THIS TIME. IV FLUIDS INITIATED AND INFUSING PER ORDERS.
[2017-10-10] VITALS: BP 104/73
--- NOTE | 2017-10-10 05:38 | NUR ---
OSTOMY BAG ON PT. LEAKING AT THIS TIME. NEW OSTOMY BAG CHANGED AT THIS TIME.
[2017-10-10 07:09] LABS: HEMATOCRIT 26.3 % (37.0-47.0); HEMOGLOBIN 8.7 g/dl (12.0-16.0); MEAN CELL VOLUME 91.3 fl (81.0-99.0); MEAN CORPUSCULAR HGB 30.2 pg (27.0-31.0); MEAN CORPUSCULAR HGB CONC 33.1 g/dl (33.0-37.0); MEAN PLATELET VOLUME 9.2 fl (9.6-12.3); PLATELET COUNT AUTOMATED 222 10*3/uL (130-400); RED BLOOD COUNT 2.88 10*6/uL (4.10-5.10); RED CELL DISTRI WIDTH 14.2 % (0-14.5); WHITE BLOOD COUNT 6.5 10*3/uL (4.8-10.8)
[2017-10-10 07:23] LABS: CREATININE 1.38 mg/dL (0.55-1.02); PHOSPHOROUS 2.3 mg/dL (2.5-4.9); POTASSIUM 4.4 mmol/L (3.5-5.1)
[2017-10-10 07:55] LABS: PLATELET SUFFICIENCY NORMAL (NORMAL); TOTAL CELLS COUNTED 100 #CELLS
[2017-10-10 08:00] VITALS: BP 102/71
[2017-10-10 12:00] VITALS: BP 112/62
--- NOTE | 2017-10-10 12:09 | NUR ---
Medicated with zofran iv per prn order for complaints of nausea.
--- NOTE | 2017-10-10 13:09 | NUR ---
prn zofran effective for nausea.
[2017-10-10 16:00] VITALS: BP 112/62; BP 113/65
--- NOTE | 2017-10-10 18:56 | NUR ---
Discharge instructions reviewed with patient/family. Patient receptive and verbalizes understanding. Follow-up care arranged. Written instructions given to patient/family. FADIA NICOLE
== END 2017-10-10 18:56 | disposition home or self-care (01) | DRG 682 ==
LOC: ED 16:44 → 5E 18:03 → EDHOLD 18:03 → 5E 18:20
PROVIDERS: Hospitalist; Student in an Organized Health Care Education/Training Program; ADMIT Internal Medicine
DX: N17.9 Acute kidney failure, unspecified (principal); E43 Unspecified severe protein-calorie malnutrition; E87.2 Acidosis; E87.5 Hyperkalemia; E86.0 Dehydration; E87.8 Other disorders of electrolyte and fluid balance, not elsewhere classified; D64.9 Anemia, unspecified; F33.1 Major depressive disorder, recurrent, moderate; E87.1 Hypo-osmolality and hyponatremia; J44.9 Chronic obstructive pulmonary disease, unspecified; R73.9 Hyperglycemia, unspecified; K21.9 Gastro-esophageal reflux disease without esophagitis; K44.9 Diaphragmatic hernia without obstruction or gangrene; R74.8 Abnormal levels of other serum enzymes; E83.42 Hypomagnesemia; G89.29 Other chronic pain; E83.39 Other disorders of phosphorus metabolism; M25.551 Pain in right hip; E78.2 Mixed hyperlipidemia; I10 Essential (primary) hypertension; F17.200 Nicotine dependence, unspecified, uncomplicated; Z87.19 Personal history of other diseases of the digestive system; Z98.51 Tubal ligation status; Z82.49 Family history of ischemic heart disease and other diseases of the circulatory system; Z83.3 Family history of diabetes mellitus; Z88.8 Allergy status to other drugs, medicaments and biological substances; Z79.899 Other long term (current) drug therapy; Z93.3 Colostomy status; Z68.20 Body mass index [BMI] 20.0-20.9, adult; Z88.1 Allergy status to other antibiotic agents

== ENCOUNTER → 2017-10-31 | Outpatient (CLI) | payer MEDICARE ==
[~2017-10-31] MED LIST changes: +ANTI-DIARRHEAL2 MG PO; +K-TAB20 MEQ PO; +LIPITOR40 MG PO; +NEURONTIN300 MG PO; +NITROSTAT0.4 MG SL; +PRILOSEC20 M1 PO; +SYMB160 INH; +VITAMIN D32000 UNIT PO
[2017-10-31 14:35] LABS: HEMATOCRIT 30.6 % (37.0-47.0); HEMOGLOBIN 9.9 g/dl (12.0-16.0); MEAN CELL VOLUME 92.2 fl (81.0-99.0); MEAN CORPUSCULAR HGB 29.8 pg (27.0-31.0); MEAN CORPUSCULAR HGB CONC 32.4 g/dl (33.0-37.0); MEAN PLATELET VOLUME 8.9 fl (9.6-12.3); PLATELET COUNT AUTOMATED 339 10*3/uL (130-400); RED BLOOD COUNT 3.32 10*6/uL (4.10-5.10); RED CELL DISTRI WIDTH 15.1 % (0-14.5); WHITE BLOOD COUNT 9.9 10*3/uL (4.8-10.8)
[2017-10-31 14:54] LABS: ALBUMIN 2.7 gm/dl (3.1-4.5); CREATININE 1.3 mg/dL (0.55-1.02); POTASSIUM 4.4 mmol/L (3.5-5.1); TOTAL PROTEIN 6.5 gm/dL (6.4-8.2)
[2017-10-31 14:58] LABS: PLATELET SUFFICIENCY NORMAL (NORMAL); TOTAL CELLS COUNTED 100 #CELLS
== END ==
LOC: LAB 01:18 → CARD 15:00 → LAB 15:00
PROVIDERS: Internal Medicine
DX: I08.2 Rheumatic disorders of both aortic and tricuspid valves (principal); I27.20 Pulmonary hypertension, unspecified; Z93.2 Ileostomy status

== ENCOUNTER → 2017-11-11 | Outpatient (CLI) | payer MEDICARE | END | disposition home or self-care (01) | LOC: RAD 12:17 | DX: M47.896 Other spondylosis, lumbar region (principal); M51.36 Other intervertebral disc degeneration, lumbar region ==

== ENCOUNTER → 2018-04-10 | Outpatient (CLI) | payer MEDICARE | END | disposition home or self-care (01) | LOC: RAD 10:38 | DX: M43.16 Spondylolisthesis, lumbar region (principal); M51.36 Other intervertebral disc degeneration, lumbar region ==

== ENCOUNTER → 2018-04-11 | Outpatient (CLI) | payer MEDICARE ==
[2018-04-11 10:26] LABS: BASO # 0.1 10*3/uL (0.0-0.1); BASO % 0.7 % (0.0-1.0); EOS # 0.4 10*3/uL (0.0-0.4); EOS % 3.9 % (1.0-4.0); HEMATOCRIT 37.2 % (37.0-47.0); HEMOGLOBIN 12.1 g/dl (12.0-16.0); LYMPH # 1.2 10*3/uL (1.3-4.4); LYMPH % 11.6 % (27.0-41.0); MEAN CELL VOLUME 93.5 fl (81.0-99.0); MEAN CORPUSCULAR HGB 30.4 pg (27.0-31.0); MEAN CORPUSCULAR HGB CONC 32.5 g/dl (33.0-37.0); MEAN PLATELET VOLUME 9.5 fl (9.6-12.3); MONO # 0.7 10*3/uL (0.1-1.0); MONO % 6.8 % (3.0-9.0); NEUT # 7.9 10*3/uL (2.3-7.9); PLATELET COUNT AUTOMATED 237 10*3/uL (130-400); RED BLOOD COUNT 3.98 10*6/uL (4.10-5.10); RED CELL DISTRI WIDTH 13.2 % (0-14.5); WHITE BLOOD COUNT 10.4 10*3/uL (4.8-10.8)
[2018-04-11 10:41] LABS: ALBUMIN 3.3 gm/dl (3.1-4.5); CREATININE 1.34 mg/dL (0.55-1.02); FREE T4 1.13 ng/dl (0.76-1.46); POTASSIUM 4.2 mmol/L (3.5-5.1); TOTAL PROTEIN 6.6 gm/dL (6.4-8.2)
[2018-04-11 10:47] LABS: THYROID STIM HORMONE (HS) 1.66 uIU/ml (0.358-4.75)
== END | disposition home or self-care (01) ==
LOC: LAB 09:32 → CARD 10:00
PROVIDERS: Internal Medicine
DX: R00.2 Palpitations (principal)

== ENCOUNTER → 2018-07-15 | Outpatient (CLI) | payer MEDICARE ==
[~2018-07-15] MED LIST changes: +ASPIRIN CHEWABL81 MG PO; +NITROSTAT0.4 MG PO; +TOPROL XL25 MG PO; +Zofran4 MG PO
== END | disposition home or self-care (01) ==
LOC: US 01:15
DX: K80.20 Calculus of gallbladder without cholecystitis without obstruction (principal); K76.89 Other specified diseases of liver

== ENCOUNTER 2018-08-15 16:15 | Inpatient (IN) | payer MEDICARE ==
[~2018-08-15] VITALS: Ht 162.5 cm; Wt 56.8 kg
--- NOTE | ~2018-08-15 | PR ---
[place], [place] PROGRESS NOTE NAME: COLTON GOLDMAN [facility] #: [id number] UNIT #: [id number] ROOM: 420 DOCTOR: NORI LEWIS MD BIRTHDATE: [birth year] DOS: 08/17/2018 SUBJECTIVE: The patient has been admitted to hospital with marked weakness and difficulty in walking, known case of coronary heart disease, status post stent placement, history of diabetes mellitus, migraine, chronic obstructive pulmonary disease, back pain and had surgery done many years ago, history of depression, gout, hypertension, osteoarthritis, non-small cell cancer of the lungs and history of diverticulosis and diverticulitis. She is also having history of renal failure with urinary tract infection. The patient is gradually feeling better. She denies any chest pain, no difficulty in breathing, no nausea, no vomiting, no constipation or diarrhea. She is eating fairly satisfactorily. Her urine culture showed heavy growth of gram-negative bacteria and ultrasound of the kidney showed no hydronephrosis bilaterally and has been seen by Dr. Vargas and according to her, the patient is having chronic kidney disease, unspecified with acute exacerbation. She advised the patient not to take any NSAID anymore and hyperkalemia due to volume depletion and dehydration, which is improved. Hyponatremia is likely pro-hypovolemic due to volume depletion, improved with IV fluid load. UTI. OBJECTIVE: VITAL SIGNS: Her blood pressure today is 136/62, pulse 66, respirations 16, temperature 97. CHEST: Clear. HEART: Regular. ABDOMEN: Soft. The patient is gradually improving. NORI LEWIS MD CM:PNTRANS [id number] NORI LEWIS MD 08/25/18 0812 interface
--- NOTE | ~2018-08-15 | WRIGHTHP ---
[place], [place] PATIENT HISTORY AND PHYSICAL EXAM NAME: COLTON GOLDMAN [facility] #: [id number] UNIT #: [id number] ROOM: 420 DOCTOR: DAMION RANDALL MD BIRTHDATE: [birth year] DOS: 08/15/2018 REASON FOR ADMISSION: Hyperkalemia, acute kidney injury and unsteady gait. HISTORY OF PRESENT ILLNESS: This is a 77-year-old patient with known history of colostomy and she is prone to dehydration. The patient had blood work done 2 days ago, which showed elevated potassium of 5.4 and elevated creatinine of 2.1. As compared to last creatinine, the rise was more than 0.3 and the patient developed acute kidney injury secondary to dehydration and prerenal azotemia. The patient at this time is being admitted to the hospital for IV fluids and further workup. She is not on any potassium supplements at this point. She also had pain in the back, which she was given Neurontin 300 mg 3 times a day and her pain is much better and on Neurontin. PAST MEDICAL HISTORY: Significant for: 1. Coronary artery disease, status post [address] Martinez. The patient has ejection fraction of 70%. She had non-Q-wave [place] in 2013. 2. Diabetes mellitus type 2. 3. Migraine headaches. 4. Chronic obstructive pulmonary disease. 5. Back pain. MRI showed L3-L4, L4-L5 diffuse annular bulge. Then, she had lumbar laminectomy done [place] [address] Vincent. She has retrolisthesis of the lumbar disks. 6. Asthma. 7. Anxiety and depression. 8. Gout. 9. Hypertension. 10. Orthostatic hypotension in the past. 11. Osteoarthritis. 12. Non-small cell lung cancer history. The patient has had a lung mass resection done by Dr. Rm, cardiothoracic surgeon at [facility]. 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 Later, the patient developed ischemic bowel and had subtotal bowel resection. The patient has ileostomy done. The patient also had a right femoral DVT. Then, the patient has a history of pedal edema. PAST SURGICAL HISTORY: Stents placed on 07/06/2014, cardiac stents placed on 07/06/2014, then, spinal surgery 11/21/2015, then mass removed from her lung in 2017, colectomy in 2017, then laparotomy with bowel resection in 2017, then history of tracheostomy and then tubal ligation. FAMILY HISTORY: Father and mother both have . Three sons, they are healthy. Mother had 4 sisters and all of them are in late 70s. SOCIAL HISTORY: Noncontributory. Nonsmoker, nonalcoholic, no illicit drug use. ALLERGIES: AVELOX, HYDROCHLOROTHIAZIDE, MIDODRINE, HYDROCHLORIDE, then CYMBALTA causes nausea. [place], [place] PATIENT HISTORY AND PHYSICAL EXAM NAME: COLTON GOLDMAN UNIT #: [id number] ROOM: [facility] DOCTOR: DAMION RANDALL MD BIRTHDATE: [birth year] Hospitalization for spinal surgery in 2016, lung mass removal in 2017 and for colectomy and ischemic bowel at [facility] in 2017. REVIEW OF SYSTEMS: All 10-point review of system is negative except for dizziness. The patient has weakness and she has an unsteady gait. The patient does have leg cramps and she has history of back pain. PHYSICAL EXAMINATION: VITAL SIGNS: Blood pressure is 104/68, heart rate is 76, temperature 96.7 and oxygen saturation 97%. Weight is 126 pounds. GENERAL APPEARANCE: The patient is in mild distress. She is otherwise well-developed and well-nourished. HEENT: Head is normocephalic, atraumatic. Ears normal. Oral cavity, tongue is slightly on the dry side. Throat is clear. 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 Gilliland, ears, nose and throat specialist in 2016). SKIN: Warm and dry. HEART: S1, S2, regular rate and no murmur, gallop or rub. LUNGS: Clear to auscultation bilaterally. ABDOMEN: The patient has ileostomy bag and bag is normal. EXTREMITIES: No cyanosis or clubbing and no edema. NEUROLOGIC: No focal deficit at this point. ASSESSMENT: At this time: 1. Acute kidney injury secondary to prerenal azotemia and dehydration. The patient needs IV fluids, normal saline at 100 mL per hour. Nephrology will also be consulted. 2. Hyperkalemia. We will check her BMP again in the morning after IV fluids. 3. Hypertension. 4. Type 2 diabetes. It is possible the patient might have chronic kidney disease secondary to hypertension and diabetes. 5. Gastroesophageal reflux disease. 6. Coronary artery disease. The patient has stents in place. The patient will be continued on baby aspirin 81 mg daily. PLAN OF CARE: 1. Continue all home medications: Her home medications are Nitrostat 0.4 mg sublingual daily, Prilosec 20 mg daily, aspirin 81 mg daily, metoprolol 25 mg 0.5 tablet with food twice a day, then vitamin D3 2000 International Units daily, atorvastatin 40 mg daily, Symbicort 160/4.5 two puffs twice a day, then gabapentin 300 mg 3 times a day. 2. BMP in the morning. 3. Consult Nephrology for acute kidney injury. 4. We will follow the patient in the morning. [place], [place] PATIENT HISTORY AND PHYSICAL EXAM NAME: COLTON GOLDMAN UNIT #: [id number] ROOM: [facility] DOCTOR: DAMION RANDALL MD BIRTHDATE: [birth year] DAMION RANDALL MD CM:HISPHYS:PATIENT HISTORY AND PHYSICAL EXAMINATION [id number] DAMION RANDALL MD 08/27/18 0655 interface
--- NOTE | ~2018-08-15 | PR ---
[place], [place] PROGRESS NOTE NAME: [facility] #: [id number] UNIT #: [id number] ROOM: 420 DOCTOR: NORI LEWIS MD BIRTHDATE: [birth year] DOS: 08/16/2018 The patient has been admitted to hospital with marked weakness with difficulty in walking. She is a known case of coronary heart disease status post stent placement, history of diabetes mellitus, migraine, chronic obstructive pulmonary disease, back pain, had surgery done on her back, has some anxiety, depression, gout, hypertension, osteoarthritis, non-small cell cancer of the lungs and history of diverticulosis with colostomy. The patient was having difficulty in walking and not able to do too much and due to that reason, she was admitted to hospital. She also had acute renal failure. Her glucose 159, BUN 58, creatinine 2.49, GFR 19 and patient being seen by tassel snipper. Her urine shows positive for nitrite and 3+ bacteria, indicating urinary tract infection. The patient was started on Cipro 250 mg twice daily. Her repeat metabolic profile today showed BUN 57, creatinine 2.06, GFR 23, showing some improvement and her chest is clear. Heart is regular. Abdomen is having no tenderness. Colostomy bag is working good. Her blood pressure today is 132/70, pulse 76, respirations 16, temperature 97.6. NORI LEWIS MD CM:PNTRANS [id number] NORI LEWIS MD 08/25/18 0812 interface
[~2018-08-15 16:15] MED LIST changes: -ASPIRIN CHEWABL81 MG PO; -NITROSTAT0.4 MG PO; -TOPROL XL25 MG PO; -Zofran4 MG PO
[2018-08-15 16:45] VITALS: BP 120/64
[2018-08-15] MEDS ORDERED: ASPIRIN CHEWABL81 MG PO (18:27)
[2018-08-15] MEDS ORDERED: PRILOSEC20 M1 PO (18:28)
[2018-08-15] MEDS ORDERED: TOPROL XL25 MG PO (18:29)
[2018-08-15] MEDS ORDERED: ATORVASTATIN CA40 M1 PO (18:29)
[2018-08-15] MEDS ORDERED: NEURONTIN300 MG PO (18:32)
[2018-08-15] MEDS ORDERED: Zofran4 MG PO (18:32)
[2018-08-15] MEDS ORDERED: SYMB160 INH (18:33)
[2018-08-15] MEDS ORDERED: NITROSTAT0.4 MG PO (18:33)
[2018-08-15 19:35] LABS: ALBUMIN 3.6 gm/dl (3.1-4.5); CREATININE 2.49 mg/dL (0.55-1.02); POTASSIUM 4.2 mmol/L (3.5-5.1)
[2018-08-15 20:00] VITALS: BP 144/55
[2018-08-16] VITALS: BP 110/68
[2018-08-16 01:11] LABS: BILIRUBIN NEGATIVE (NEGATIVE); BLOOD NEGATIVE (NEGATIVE); CLARITY CLEAR (CLEAR); COLOR YELLOW (YELLOW); GLUCOSE NEGATIVE (NEGATIVE); KETONE NEGATIVE (NEGATIVE); LEUKO ESTERASE TRACE (NEGATIVE); NITRITE POSITIVE (NEGATIVE); SPECIFIC GRAVITY 1.025 (1.005-1.030); UROBILINOGEN 0.2 E.U./dl (0.2-1.0)
[2018-08-16 01:36] LABS: URINE CHLORIDE, RANDOM < 10 mmol/L
[2018-08-16 01:39] LABS: BACTERIA 3+; EPITHELIAL CELLS 0-2; WBC 16-20 wbc/hpf (0-5)
[2018-08-16 07:02] LABS: CREATININE 2.06 mg/dL (0.55-1.02); POTASSIUM 4.3 mmol/L (3.5-5.1)
[2018-08-16 08:00] VITALS: BP 132/70
[2018-08-16 12:00] VITALS: BP 108/56
[2018-08-16 16:00] VITALS: BP 119/57
[2018-08-16 20:00] VITALS: BP 100/54
[2018-08-17] VITALS: BP 102/55
[2018-08-17 08:19] VITALS: BP 136/62
[2018-08-17 10:57] LABS: CREATININE 1.71 mg/dL (0.55-1.02); POTASSIUM 3.6 mmol/L (3.5-5.1)
== END 2018-08-17 11:37 | disposition home or self-care (01) | DRG 683 ==
LOC: 5E 16:15 → 4E 08-16 22:15
PROVIDERS: Internal Medicine; Internal Medicine Nephrology
DX: N17.9 Acute kidney failure, unspecified (principal); E87.1 Hypo-osmolality and hyponatremia; N39.0 Urinary tract infection, site not specified; K56.7 Ileus, unspecified; E86.0 Dehydration; E87.5 Hyperkalemia; E11.22 Type 2 diabetes mellitus with diabetic chronic kidney disease; N18.9 Chronic kidney disease, unspecified; I12.9 Hypertensive chronic kidney disease with stage 1 through stage 4 chronic kidney disease, or unspecified chronic kidney disease; K21.9 Gastro-esophageal reflux disease without esophagitis; I25.10 Atherosclerotic heart disease of native coronary artery without angina pectoris; Z95.5 Presence of coronary angioplasty implant and graft; G43.909 Migraine, unspecified, not intractable, without status migrainosus; J44.9 Chronic obstructive pulmonary disease, unspecified; F41.9 Anxiety disorder, unspecified; K57.90 Diverticulosis of intestine, part unspecified, without perforation or abscess without bleeding; G89.29 Other chronic pain; M54.9 Dorsalgia, unspecified; Z93.3 Colostomy status; Z98.51 Tubal ligation status; Z87.891 Personal history of nicotine dependence; I25.2 Old myocardial infarction; Z82.49 Family history of ischemic heart disease and other diseases of the circulatory system; Z88.1 Allergy status to other antibiotic agents; Z88.7 Allergy status to serum and vaccine; Z88.8 Allergy status to other drugs, medicaments and biological substances; Z79.82 Long term (current) use of aspirin; Z79.899 Other long term (current) drug therapy

== ENCOUNTER → 2018-10-23 | Outpatient (CLI) | payer MEDICARE ==
[~2018-10-23] MED LIST changes: +ASPIRIN CHEWABL81 MG PO; +CEFUROXIME AXE500 MG PO; +GABAPENTIN400 MG PO; +NITROSTAT0.4 MG PO; +PLAQUENIL200 MG PO; +TOPROL XL25 MG PO; +Zofran4 MG PO
== END | disposition home or self-care (01) ==
DX: N89.8 Other specified noninflammatory disorders of vagina (principal); Z78.0 Asymptomatic menopausal state

== ENCOUNTER → 2018-10-30 | Outpatient (CLI) | payer MEDICARE ==
[~2018-10-30] MED LIST changes: -CEFUROXIME AXE500 MG PO; -GABAPENTIN400 MG PO; -PLAQUENIL200 MG PO
== END | disposition home or self-care (01) ==
LOC: MRI 02:44
DX: N89.8 Other specified noninflammatory disorders of vagina (principal)

== ENCOUNTER → 2018-11-24 | Outpatient (CLI) | payer MEDICARE ==
[~2018-11-24] MED LIST changes: +CEFUROXIME AXE500 MG PO; +GABAPENTIN400 MG PO; +PLAQUENIL200 MG PO
== END | disposition home or self-care (01) ==
LOC: RAD 00:27
DX: N82.2 Fistula of vagina to small intestine (principal); N89.8 Other specified noninflammatory disorders of vagina; Z90.49 Acquired absence of other specified parts of digestive tract

== ENCOUNTER → 2018-12-03 | Outpatient (CLI) | payer MEDICARE | END | disposition home or self-care (01) | LOC: LAB 14:39 | DX: M19.011 Primary osteoarthritis, right shoulder (principal); N89.8 Other specified noninflammatory disorders of vagina ==

== ENCOUNTER → 2019-04-08 | Outpatient (CLI) | payer MEDICARE ==
[~2019-04-08] MED LIST changes: +CEFUROXIME AXE250 MG PO; +LOPERAMIDE HCL2 MG PO; +Lidoderm 5% Patch T
[2019-04-08 15:44] LABS: ALBUMIN 3.7 gm/dl (3.1-4.5); CREATININE 2.27 mg/dL (0.55-1.02); POTASSIUM 4.8 mmol/L (3.5-5.1); TOTAL PROTEIN 7.3 gm/dL (6.4-8.2)
== END | disposition home or self-care (01) ==
LOC: LAB 14:35
PROVIDERS: Internal Medicine Nephrology
DX: Z09 Encounter for follow-up examination after completed treatment for conditions other than malignant neoplasm (principal)

== ENCOUNTER 2019-06-18 14:55 | Inpatient (IN) | payer MEDICARE ==
[~2019-06-18] VITALS: Ht 162.6 cm; Wt 63.7 kg
[~2019-06-18 14:55] MED LIST changes: -CEFUROXIME AXE250 MG PO; -LOPERAMIDE HCL2 MG PO; -Lidoderm 5% Patch T
[2019-06-18 14:58] VITALS: BP 126/77
[2019-06-18 16:08] LABS: BASO # 0.1 10*3/uL (0.0-0.1); BASO % 0.7 % (0.0-1.0); EOS # 0.1 10*3/uL (0.0-0.4); HEMATOCRIT 39.7 % (37.0-47.0); HEMOGLOBIN 13.2 g/dl (12.0-16.0); LYMPH % 7.7 % (27.0-41.0); MEAN CELL VOLUME 89.6 fl (81.0-99.0); MEAN CORPUSCULAR HGB 29.8 pg (27.0-31.0); MEAN CORPUSCULAR HGB CONC 33.2 g/dl (33.0-37.0); MEAN PLATELET VOLUME 9.2 fl (9.6-12.3); MONO # 0.8 10*3/uL (0.1-1.0); MONO % 6.7 % (3.0-9.0); NEUT # 10.3 10*3/uL (2.3-7.9); NEUT % 81.9 % (47.0-73.0); PLATELET COUNT AUTOMATED 294 10*3/uL (130-400); RED BLOOD COUNT 4.43 10*6/uL (4.10-5.10); RED CELL DISTRI WIDTH 14.2 % (0-14.5); WHITE BLOOD COUNT 12.5 10*3/uL (4.8-10.8)
[2019-06-18 16:25] LABS: ALBUMIN 3.9 gm/dl (3.1-4.5); ALKALINE PHOSPHATASE 119 U/L (45-117); BUN 100 mg/dl (7-24); CHLORIDE 98 mmol/L (98-107); CREATININE 4.21 mg/dL (0.55-1.02); LIPASE 306 U/L (73-393); POTASSIUM 5.2 mmol/L (3.5-5.1); SGOT/AST 15 IU/L (3-35); SGPT/ALT 20 U/L (12-78); SODIUM 130 mmol/L (136-145); TOTAL PROTEIN 7.6 gm/dL (6.4-8.2)
--- NOTE | 2019-06-18 16:26 | NUR ---
Notifed by lab, Pt has lactic acid of 2.4, Toshia TRENT and Oxana RN notifed.
[2019-06-18 16:27] LABS: TROPONIN I < 0.015 ng/ml (<0.045)
[2019-06-18 16:52] LABS: ACT PARTIAL THROMBO TIME 24.5 SECONDS (20.0-32.1); INTERNATIONAL NORM RATIO 0.9 (2.0-3.5)
[2019-06-18 18:09] VITALS: BP 131/71
--- NOTE | 2019-06-18 18:14 | NUR ---
THE PATIENTS SON WAS CALLED AND THE CALL WAS TRANSDERED TO THE PATIENTS ROOM PER PATIENT REQUEST. FARTUN LAM RN.
--- NOTE | 2019-06-18 18:45 | NUR ---
A 78, admitted to 5E, under the services of DAMION Suazo MD with a diagnosis of INTACTABLE BACK PAIN. Chief complaint is PAIN, DECREASED URINATION. Patient arrived via ambulance from ER. Monitor applied. Initial assessment completed. Vital signs taken and recorded. DAMION SUAZO MD notified of admission to the unit. Orders received. See assessment for past medical history, medications and allergies. Patient and/or family oriented to unit. [facility] visitation policy reviewed. Clothing/patient valuable form completed. ZENY ARMAS
[2019-06-18 20:00] VITALS: BP 122/62; BP 124/62
[2019-06-19] VITALS: BP 96/58
[2019-06-19 00:49] LABS: BILIRUBIN NEGATIVE (NEGATIVE); BLOOD 3+ (NEGATIVE); CLARITY SL CLOUDY (CLEAR); COLOR YELLOW (YELLOW); GLUCOSE NEGATIVE (NEGATIVE); KETONE NEGATIVE (NEGATIVE); LEUKO ESTERASE 2+ (NEGATIVE); NITRITE NEGATIVE (NEGATIVE); PH 5.5 (5.0-9.0); SPECIFIC GRAVITY 1.025 (1.005-1.030); UROBILINOGEN 0.2 E.U./dl (0.2-1.0)
[2019-06-19 01:01] LABS: BACTERIA 2+; WBC TNTC wbc/hpf (0-5)
--- NOTE | 2019-06-19 02:00 | NUR ---
IV started with #22 protective cath after 1 attempts. Site prepped with Chloroprep. Sterile dressing applied. Patient tolerated procedure well. IV infusing at 125 cc/hr. STEPH WINSTON
--- NOTE | 2019-06-19 03:51 | NUR ---
24 HR chart check completed.
[2019-06-19 06:18] LABS: CREATININE 3.64 mg/dL (0.55-1.02); PHOSPHOROUS 5.6 mg/dL (2.5-4.9); POTASSIUM 5.1 mmol/L (3.5-5.1)
[2019-06-19 08:00] VITALS: BP 96/56
--- NOTE | 2019-06-19 08:30 | NUR ---
Mental Health Therapist in to talk to patient. Patient states lives at home alone with her son and daughter living next door. There are 0 steps in the home. Physician: Dr. Jagdish Gordon [facility]: [facility] Home health services: none Patient's level of ADLs: INDEPENDENT Patient has working utilities: yes DME: none Follow-up physician's appointment after d/c: she prefers to make her own follow up appt after discharge Does patient want to access PORTAL?: no Discharge plan discussed with patient. She lives at home with her son and daughter living next door. She is independent in her ADLs and ambulation. Discussed home health care services and she denies any home needs at this time. When medically stable she will be discharged to home. Her son will transport on discharge. LOBO ASHER
--- NOTE | 2019-06-19 09:34 | NUR ---
SPOKE W/ DR. RANDALL ABOUT PATIENT'S BLOOD PRESSURE OF 94/58. DR. RANDALL SAID TO HOLD THIS MORNINGS DOSE OF TOPROL XL AND TO NOTIFY DR. AMARAL.
--- NOTE | 2019-06-19 09:37 | NUR ---
NOTIFIED DR. AMARAL ABOUT PATIENT'S BLOOD PRESSURE OF 94/58, BUN 93, CREATININE 3.64, AND THAT DR. RANDALL HELD HER TOPROL XL FOR THIS MORNING. DR. MAARAL STATED SHE WILL BE UP TO SEE THE PATIENT.
--- NOTE | 2019-06-19 10:15 | NUR ---
NOTIFIED DR. RANDALL THAT PATIENT WAS HAVING HEARTBURN THAT CAUSES NAUSEA AND VOMITING. ORDER GIVEN FOR IV PROTONIX BID AND IV ZOFRAN Q6H PRN FOR NAUSEA/VOMITING.
--- NOTE | 2019-06-19 10:50 | NUR ---
MEDICATED WITH IV ZOFRAN ORDERED FOR ACUTE NAUSEA.
[2019-06-19 12:00] VITALS: BP 105/53
[2019-06-19] MEDS ORDERED: NITROSTAT0.4 MG SL (12:59)
--- NOTE | 2019-06-19 13:03 | NUR ---
MEDICATED WITH PO IMODIUM ORDERED PER PT REQUEST FOR CHRONIC DIARRHEA.
[2019-06-19 16:00] VITALS: BP 111/54
--- NOTE | 2019-06-19 16:05 | NUR ---
Medicated with po imodium as ordered for continued liquid bm via ileostomy. Previous dose not effective.
--- NOTE | 2019-06-19 19:55 | NUR ---
24 HR chart check completed.
[2019-06-19 20:00] VITALS: BP 125/62
--- NOTE | 2019-06-19 21:00 | NUR ---
RESTING IN BED WITH NO ACUTE DISTRESS NOTED. RESPIRATIONS EASY. LUNGS DIMINISHED, CLEAR. PULSE OX 100% RFA. ILEOSTOMY PATENT FOR LOOSE STOOL. IV FLUIDS INFUSING PER ORDER. CALL LIGHT WITHIN REACH. NO VOICED COMPLAINTS
[2019-06-20] VITALS: BP 102/62
--- NOTE | 2019-06-20 | NUR ---
SLEEPING. NO DISTRESS NOTED. RESPIRATIONS EASY. VSS. IV FLUIDS MAINTAINED. CALL LIGHT WITHIN REACH.
--- NOTE | 2019-06-20 06:00 | NUR ---
SLEPT THROUGHOUT NIGHT WITH NO DISTRESS NOTED. RESPIRATIONS EASY. IV FLUIDS MAINTAINED. CALL LIGHT WITHIN REACH. NO VOICED COMPLAINTS THIS SHIFT
[2019-06-20 06:53] LABS: CREATININE 2.52 mg/dL (0.55-1.02); PHOSPHOROUS 5.2 mg/dL (2.5-4.9); POTASSIUM 4.3 mmol/L (3.5-5.1)
[2019-06-20 07:13] LABS: BASO # 0.1 10*3/uL (0.0-0.1); BASO % 0.9 % (0.0-1.0); EOS # 0.3 10*3/uL (0.0-0.4); EOS % 2.8 % (1.0-4.0); HEMATOCRIT 29.4 % (37.0-47.0); HEMOGLOBIN 9.3 g/dl (12.0-16.0); LYMPH # 0.9 10*3/uL (1.3-4.4); LYMPH % 9.5 % (27.0-41.0); MEAN CORPUSCULAR HGB 29.8 pg (27.0-31.0); MEAN CORPUSCULAR HGB CONC 31.6 g/dl (33.0-37.0); MEAN PLATELET VOLUME 9.7 fl (9.6-12.3); MONO # 0.8 10*3/uL (0.1-1.0); MONO % 8.4 % (3.0-9.0); NEUT # 7.1 10*3/uL (2.3-7.9); NEUT % 76.5 % (47.0-73.0); PLATELET COUNT AUTOMATED 222 10*3/uL (130-400); RED BLOOD COUNT 3.12 10*6/uL (4.10-5.10); RED CELL DISTRI WIDTH 14.4 % (0-14.5); WHITE BLOOD COUNT 9.3 10*3/uL (4.8-10.8)
[2019-06-20 07:14] LABS: MEAN CELL VOLUME 94.2 fl (81.0-99.0)
[2019-06-20 08:00] VITALS: BP 104/50
--- NOTE | 2019-06-20 09:05 | NUR ---
PT RESTING IN BED. NO DISTRESS NOTED. NO VOICED C/O. WILL MONITOR
[2019-06-20 12:00] VITALS: BP 113/64
[2019-06-20 16:00] VITALS: BP 92/44
[2019-06-20 20:00] VITALS: BP 105/53
--- NOTE | 2019-06-20 22:30 | NUR ---
PATIENT REFUSING IV FLUIDS AND TO HAVE ANOTHER IV STARTED DR. AMARAL AWARE.
[2019-06-21] VITALS: BP 106/52
--- NOTE | 2019-06-21 03:43 | NUR ---
24 HR. CHART CHECK COMPLETE.
--- NOTE | 2019-06-21 07:38 | NUR ---
Shift chart check completed.
[2019-06-21 08:00] VITALS: BP 110/60
--- NOTE | 2019-06-21 08:05 | NUR ---
DR FITCH ROUNDED AND THEN SPOKE WITH DR AMARAL VIA PHONE. OK TO DISCHARGE - MONITOR REMOVED.
[2019-06-21] MEDS ORDERED: Lidoderm 5% Patch T (08:30)
[2019-06-21] MEDS ORDERED: CEFUROXIME AXE250 MG PO (08:30)
[2019-06-21] MEDS ORDERED: LOPERAMIDE HCL2 MG PO (08:30)
--- NOTE | 2019-06-21 08:50 | NUR ---
PER DR FITCH GIVE THE PATINET A LIDOCAINE PATCH TO TAKE HOME FROM HERE.
--- NOTE | 2019-06-21 09:50 | NUR ---
PATIENT INSISTED ON BEING TAKEN TO THE LOBBY TO WAIT FOR HER RIDE EVEN THOUGH SHE WAS NOT SURE WHAT TIME THEY WERE COMING. PATIENT IS PLEASANT, AAOX3. NO WOUNDS
== END 2019-06-21 08:50 | disposition home or self-care (01) | DRG 871 ==
LOC: ED 14:55 → EDHOLD 17:57 → 5E 17:57
PROVIDERS: Internal Medicine Nephrology; Nurse Practitioner Family; ADMIT Internal Medicine
DX: A41.9 Sepsis, unspecified organism (principal); N17.0 Acute kidney failure with tubular necrosis; N39.0 Urinary tract infection, site not specified; I13.0 Hypertensive heart and chronic kidney disease with heart failure and stage 1 through stage 4 chronic kidney disease, or unspecified chronic kidney disease; E87.1 Hypo-osmolality and hyponatremia; B96.20 Unspecified Escherichia coli [E. coli] as the cause of diseases classified elsewhere; G89.29 Other chronic pain; M54.5 Low back pain; J44.9 Chronic obstructive pulmonary disease, unspecified; I25.10 Atherosclerotic heart disease of native coronary artery without angina pectoris; E11.22 Type 2 diabetes mellitus with diabetic chronic kidney disease; I50.9 Heart failure, unspecified; M47.9 Spondylosis, unspecified; R06.6 Hiccough; N18.3 Chronic kidney disease, stage 3 (moderate); F41.9 Anxiety disorder, unspecified; K21.9 Gastro-esophageal reflux disease without esophagitis; E78.5 Hyperlipidemia, unspecified; E87.5 Hyperkalemia; M25.551 Pain in right hip; E55.9 Vitamin D deficiency, unspecified; F32.9 Major depressive disorder, single episode, unspecified; M48.00 Spinal stenosis, site unspecified; Z93.2 Ileostomy status; Z88.1 Allergy status to other antibiotic agents; Z88.8 Allergy status to other drugs, medicaments and biological substances; Z98.51 Tubal ligation status; Z95.5 Presence of coronary angioplasty implant and graft; Z87.891 Personal history of nicotine dependence; Z82.49 Family history of ischemic heart disease and other diseases of the circulatory system; Z83.3 Family history of diabetes mellitus; Z86.718 Personal history of other venous thrombosis and embolism; Z85.118 Personal history of other malignant neoplasm of bronchus and lung

== ENCOUNTER → 2019-11-19 | Outpatient (CLI) | payer OTHER ==
[~2019-11-19] MED LIST changes: +CEFUROXIME AXE250 MG PO; +LOPERAMIDE HCL2 MG PO; +Lidoderm 5% Patch T
[2019-11-19 11:30] LABS: CREATININE 2.27 mg/dL (0.55-1.02); POTASSIUM 3.6 mmol/L (3.5-5.1)
== END | disposition home or self-care (01) ==
LOC: LAB 10:20
PROVIDERS: Internal Medicine
DX: I25.10 Atherosclerotic heart disease of native coronary artery without angina pectoris (principal)

== ENCOUNTER 2020-01-11 18:51 | Inpatient (IN) | payer OTHER ==
[2020-01-11] VITALS (9 sets, daily range): BP systolic 78–108; BP diastolic 50–66
[~2020-01-11] VITALS: Ht 162.5 cm; Wt 74.5 kg
[2020-01-11] MEDS ORDERED: K-TAB20 MEQ PO (19:16)
[2020-01-11] MEDS ORDERED: GABAPENTIN400 MG PO (19:17)
[2020-01-11] MEDS ORDERED: ASPIRIN CHEWABL81 MG PO (19:18)
[2020-01-11] MEDS ORDERED: LOPRESSOR50 M1 PO (19:18)
[2020-01-11] MEDS ORDERED: CLOPIDOGREL75 MG PO (19:18)
[2020-01-11] MEDS ORDERED: PRINIVIL5 M1 PO (19:18)
[2020-01-11] MEDS ORDERED: LASIX20 MG PO (19:19)
[2020-01-11] MEDS ORDERED: LIPITOR40 MG PO (19:19)
--- NOTE | 2020-01-11 20:03 | NUR ---
DR. PEREIRA WAS NOTIFIED OF THE PATIENT BP. PATIENT WITH NO SXS OF HYPOTENSION AT THIS TIME.
[2020-01-11 20:10] LABS: BASO % 0.2 % (0.0-1.0); EOS % 0.1 % (1.0-4.0); HEMATOCRIT 34.4 % (37.0-47.0); HEMOGLOBIN 11.2 g/dl (12.0-16.0); LYMPH # 0.8 10*3/uL (1.3-4.4); LYMPH % 4.6 % (27.0-41.0); MEAN CELL VOLUME 88.7 fl (81.0-99.0); MEAN CORPUSCULAR HGB 28.9 pg (27.0-31.0); MEAN CORPUSCULAR HGB CONC 32.6 g/dl (33.0-37.0); MEAN PLATELET VOLUME 9.8 fl (9.6-12.3); MONO % 5.4 % (3.0-9.0); NEUT # 15.9 10*3/uL (2.3-7.9); NEUT % 88.9 % (47.0-73.0); PLATELET COUNT AUTOMATED 290 10*3/uL (130-400); RED BLOOD COUNT 3.88 10*6/uL (4.10-5.10); RED CELL DISTRI WIDTH 14.1 % (0-14.5); WHITE BLOOD COUNT 17.9 10*3/uL (4.8-10.8)
[2020-01-11 20:26] LABS: ALBUMIN 3.6 gm/dl (3.1-4.5); ALKALINE PHOSPHATASE 129 U/L (45-117); BUN 131 mg/dl (7-24); CHLORIDE 90 mmol/L (98-107); LIPASE 215 U/L (73-393); SGOT/AST 8 IU/L (3-35); SGPT/ALT 14 U/L (12-78); SODIUM 128 mmol/L (136-145); TOTAL PROTEIN 7.2 gm/dL (6.4-8.2)
[2020-01-11 20:27] LABS: POTASSIUM 7.7 mmol/L (3.5-5.1)
--- NOTE | 2020-01-11 21:08 | NUR ---
PATIENT IS RESTING IN BED. NO COMPLAINTS OR ISSUES NOTED AT THIS TIME.
[2020-01-11 22:39] LABS: URINE CHLORIDE, RANDOM < 10 mmol/L
[2020-01-11 23:04] LABS: BILIRUBIN 1+ (NEGATIVE); BLOOD 3+ (NEGATIVE); CLARITY CLOUDY (CLEAR); COLOR YELLOW (YELLOW); GLUCOSE NEGATIVE (NEGATIVE); KETONE TRACE (NEGATIVE)
[2020-01-11 23:05] LABS: LEUKO ESTERASE 2+ (NEGATIVE); NITRITE NEGATIVE (NEGATIVE); UROBILINOGEN 0.2 E.U./dl (0.2-1.0)
[2020-01-11 23:16] LABS: BACTERIA 1+; EPITHELIAL CELLS 45-50; RBC TNTC rbc/hpf (0-2); WBC TNTC wbc/hpf (0-5)
--- NOTE | 2020-01-12 00:40 | NUR ---
PATIENT RECIEVED A TOTAL OF 2L NS IN ER. ONE STARTED BY EMS, AND ONE STARTED BY ED STAFF.
[2020-01-12 01:00] VITALS: BP 94/54
--- NOTE | 2020-01-12 01:00 | NUR ---
A 79, admitted to ICCU, under the services of DAMION Suazo MD with a diagnosis of UTI, ACUTE RENAL FAILURE, HYPERKALEMIA, DEHYDRATION. Chief complaint is NAUSEA. Patient arrived via bed from ER. Monitor applied. Initial assessment completed. Vital signs taken and recorded. DAMION SUAZO MD notified of admission to the unit. Orders received. See assessment for past medical history, medications and allergies. Patient and/or family oriented to unit. [facility] visitation policy reviewed. Clothing/patient valuable form completed. CESAR WOODRUFF
--- NOTE | 2020-01-12 01:10 | NUR ---
Patient complains of neck pain, states she was sleeping in a chair. Patients rates pain level 9/10. Surprise given, will monitor and reassess.
[2020-01-12 01:56] LABS: CREATININE 12.9 mg/dL (0.55-1.02)
[2020-01-12 01:57] LABS: POTASSIUM 6.3 mmol/L (3.5-5.1)
--- NOTE | 2020-01-12 03:35 | NUR ---
Patient still having some neck pain, adjusted her pillow and bed for comfort. Gem not effective.
[2020-01-12 04:02] VITALS: BP 91/45
[2020-01-12 07:48] LABS: BASO # 0.1 10*3/uL (0.0-0.1); BASO % 0.4 % (0.0-1.0); EOS # 0.1 10*3/uL (0.0-0.4); EOS % 0.8 % (1.0-4.0); HEMATOCRIT 29.6 % (37.0-47.0); HEMOGLOBIN 9.5 g/dl (12.0-16.0); LYMPH # 1.3 10*3/uL (1.3-4.4); LYMPH % 10.2 % (27.0-41.0); MEAN CELL VOLUME 89.7 fl (81.0-99.0); MEAN CORPUSCULAR HGB 28.8 pg (27.0-31.0); MEAN CORPUSCULAR HGB CONC 32.1 g/dl (33.0-37.0); MEAN PLATELET VOLUME 9.9 fl (9.6-12.3); MONO # 1.2 10*3/uL (0.1-1.0); MONO % 9.1 % (3.0-9.0); NEUT # 10.4 10*3/uL (2.3-7.9); NEUT % 78.8 % (47.0-73.0); PLATELET COUNT AUTOMATED 235 10*3/uL (130-400); RED CELL DISTRI WIDTH 14.2 % (0-14.5); WHITE BLOOD COUNT 13.1 10*3/uL (4.8-10.8)
[2020-01-12 08:00] VITALS: BP 94/61
[2020-01-12 08:03] LABS: ALBUMIN 3.1 gm/dl (3.1-4.5); CREATININE 12.5 mg/dL (0.55-1.02); POTASSIUM 5.6 mmol/L (3.5-5.1); TOTAL PROTEIN 6.3 gm/dL (6.4-8.2)
[2020-01-12 08:12] LABS: PHOSPHOROUS 10.1 mg/dL (2.5-4.9)
--- NOTE | 2020-01-12 09:23 | NUR ---
DR. AMARAL NOTIFIED OF LABS. NEW ORDERS RECEIVED
[2020-01-12 09:59] LABS: VITAMIN D, 25-HYDROXY 27.1 ng/mL (30-100)
--- NOTE | 2020-01-12 10:00 | NUR ---
MEDICATED WITH NORCO FOR COMPLAINTS OF PAIN IN NECK. RATES PAIM A 8 ON A PAIN SCALE OF 1-10
--- NOTE | 2020-01-12 11:00 | NUR ---
VOICES THAT NORCO WAS EFFECTIVE FOR NECK PAIN
[2020-01-12 12:00] VITALS: BP 70/40
--- NOTE | 2020-01-12 12:15 | NUR ---
DR. OHARA NOTIFIED OF BP 70/40. ORDERS RECEIVED TO BOLUS WITH 1 LITER NS
--- NOTE | 2020-01-12 13:46 | NUR ---
Plant Changer in to talk to patient. Patient states lives at HOME with ALONE, SON LIVES RIGHT BESIDE HER. There are 3 OUTSIDE steps in the home. Physician: TONIA [facility]: [facility] Home health services: NONE Patient's level of ADLs: INDEPENDENT Patient has working utilities: YES DME: NONE Follow-up physician's appointment after d/c: PREFERS TO MAKE OWN AFTER DISCHARGE Does patient want to access PORTAL?: NO Discharge plan . PT LIVES ALONE ON DOUBLE WIDE ON SONS PROPERTY AND IS INDEPENDENT IN HER CARE. DENIES SHE WILL HAVE ANY NEEDS ON DISCHARGE. PLANS TO RETURN HOME WHEN MEDICALLY STABLE. WILL CONTINUE TO FOLLOW. STATES SON WILL TAKE HER HOME. ALONDRA WINSTON
[2020-01-12 14:03] VITALS: BP 94/50
[2020-01-12 14:11] LABS: ALBUMIN 2.6 gm/dl (3.1-4.5); CREATININE 10.8 mg/dL (0.55-1.02); POTASSIUM 5.1 mmol/L (3.5-5.1); TOTAL PROTEIN 5.6 gm/dL (6.4-8.2)
--- NOTE | 2020-01-12 19:44 | NUR ---
CHART CHECK COMPLETE.
[2020-01-12 20:00] VITALS: BP 99/52
--- NOTE | 2020-01-12 20:32 | NUR ---
MOMD TEACHER PROVIDED PT'S HEARING AIDS, CELL PHONE AND COMIC BOOK DESIGNER THAT HER SON BROUGHT FOR HER.
[2020-01-13] VITALS: BP 92/53
--- NOTE | 2020-01-13 00:05 | NUR ---
STOOL FOR CDIFF SENT ORDERED AFTER AGAIN EMPTYING ILEOSTOMY.
[2020-01-13 04:00] VITALS: BP 84/34
[2020-01-13 06:18] LABS: BASO # 0.1 10*3/uL (0.0-0.1); BASO % 0.6 % (0.0-1.0); EOS # 0.3 10*3/uL (0.0-0.4); EOS % 3.3 % (1.0-4.0); HEMATOCRIT 25.3 % (37.0-47.0); LYMPH % 12.7 % (27.0-41.0); MEAN CELL VOLUME 91.7 fl (81.0-99.0); MEAN CORPUSCULAR HGB CONC 31.6 g/dl (33.0-37.0); MEAN PLATELET VOLUME 10.3 fl (9.6-12.3); MONO # 0.7 10*3/uL (0.1-1.0); MONO % 9.1 % (3.0-9.0); NEUT # 5.8 10*3/uL (2.3-7.9); NEUT % 73.5 % (47.0-73.0); PLATELET COUNT AUTOMATED 203 10*3/uL (130-400); RED BLOOD COUNT 2.76 10*6/uL (4.10-5.10); RED CELL DISTRI WIDTH 14.2 % (0-14.5); WHITE BLOOD COUNT 7.9 10*3/uL (4.8-10.8)
[2020-01-13 06:21] LABS: ALBUMIN 2.6 gm/dl (3.1-4.5); POTASSIUM 4.7 mmol/L (3.5-5.1)
[2020-01-13 06:25] LABS: CREATININE 8.19 mg/dL (0.55-1.02); TOTAL PROTEIN 5.2 gm/dL (6.4-8.2)
[2020-01-13 06:28] LABS: ACT PARTIAL THROMBO TIME 24.8 SECONDS (20.0-32.1)
[2020-01-13 08:00] VITALS: BP 106/47
[2020-01-13 08:13] LABS: VITAMIN D, 25-HYDROXY 31.5 ng/mL (30-100)
--- NOTE | 2020-01-13 08:50 | NUR ---
ULTRASOUND OF ABD. KOROMA COMPLETED.
--- NOTE | 2020-01-13 09:26 | NUR ---
MEDICATED PT PER PRN ORDER WITH ZOFRAN AFTER IV ESTABLISHED IN LEFT UPPER ARM.
--- NOTE | 2020-01-13 10:16 | NUR ---
PT STATES RELIEF OF NAUSEA WITH EARLIER ZOFRAN. BREAKFAST ORDERED BY PT.
[2020-01-13 12:00] VITALS: BP 108/49
--- NOTE | 2020-01-13 13:30 | NUR ---
DR AMARAL IN TO SEE PT.
--- NOTE | 2020-01-13 15:41 | NUR ---
IV 0.9% BOLUS STARTED PER ORDER.
[2020-01-13 16:00] VITALS: BP 110/52
--- NOTE | 2020-01-13 16:44 | NUR ---
DR RANDALL IN TO SEE PT. HE ORDERED PT MAY BE TRANSFERED TO [facility] [place].
--- NOTE | 2020-01-13 17:53 | NUR ---
PT TO XRAY VIA CART.
--- NOTE | 2020-01-13 18:21 | NUR ---
MEDICATED PT PER PRN ORDER WITH NORCO FOR C/O LEFT FOOT PAIN THAT SHE REFUSED TO RATE ON A PAIN SCALE AT THIS TIME. ALSO MEDICATED PT PER PRN ORDER WITH ZOFRAN FOR C/O NAUSEA.
--- NOTE | 2020-01-13 19:10 | NUR ---
PT STATES SOME RELIEF OF PAIN WITH EARLIER NORCO. PT IS EATING DINNER. RELIEF OF NAUSEA WITH EARLIER ZOFRAN.
[2020-01-13 20:00] VITALS: BP 103/54
--- NOTE | 2020-01-13 20:00 | NUR ---
PT RESTING IN BED WATCHING TV, A&O, PLEASANT AND COOPERATIVE. RESP NONLABBORED. NO ACUTE DISTRESS NOTED. NO COMPLAINTS VOICED AT THIS TIME. IV PATENT AND IVF'S INFUSING ORDERED WITHOUT DIFFICULTY.
--- NOTE | 2020-01-13 21:15 | NUR ---
[facility] [place] RADIATION CALLLED WITH LEFT FOOT XRAY RESULTS. DR BRICENO NOTIFIE OF RESULTS.
--- NOTE | 2020-01-13 21:30 | NUR ---
DR STUMPER FELLER FOR PODIATRY NOTIFIED OF LEFT FOOT XRAY RESULTS AND DR STATED HE IS ON HIS WAY INTO ER NOW AND WILL STOP IN TO SEE PT.
[2020-01-14] VITALS: BP 114/59
[2020-01-14 05:08] LABS: ALBUMIN 2.4 gm/dl (3.1-4.5); CREATININE 5.43 mg/dL (0.55-1.02); PHOSPHOROUS 5.4 mg/dL (2.5-4.9); POTASSIUM 4.1 mmol/L (3.5-5.1); TOTAL PROTEIN 5.2 gm/dL (6.4-8.2)
--- NOTE | 2020-01-14 05:40 | NUR ---
DR BRICENO NOTIFIED OF LAB RESULTS.
[2020-01-14 05:57] LABS: BASO % 0.6 % (0.0-1.0); EOS # 0.3 10*3/uL (0.0-0.4); EOS % 4.8 % (1.0-4.0); HEMATOCRIT 24.4 % (37.0-47.0); HEMOGLOBIN 7.8 g/dl (12.0-16.0); LYMPH % 13.6 % (27.0-41.0); MEAN CORPUSCULAR HGB 28.8 pg (27.0-31.0); MEAN PLATELET VOLUME 10.2 fl (9.6-12.3); MONO # 0.8 10*3/uL (0.1-1.0); MONO % 11.2 % (3.0-9.0); NEUT # 4.9 10*3/uL (2.3-7.9); NEUT % 69.1 % (47.0-73.0); PLATELET COUNT AUTOMATED 191 10*3/uL (130-400); RED BLOOD COUNT 2.71 10*6/uL (4.10-5.10); RED CELL DISTRI WIDTH 14.3 % (0-14.5); WHITE BLOOD COUNT 7.1 10*3/uL (4.8-10.8)
[2020-01-14 08:00] VITALS: BP 119/58
--- NOTE | 2020-01-14 09:46 | NUR ---
PT MEDICATED WITH ZOFRAN 4MG IV FOR C/O NAUSEA.
--- NOTE | 2020-01-14 10:48 | NUR ---
PT STATED ZOFRAN WAS EFFECTIVE IN EASING HER NAUSEA.
--- NOTE | 2020-01-14 11:27 | NUR ---
DR VASQUES NOTIFIED OF NEW CONSULT ORDER.
--- NOTE | 2020-01-14 11:50 | NUR ---
DR VASQUES IN TO SEE PT.
--- NOTE | 2020-01-14 11:50 | NUR ---
DR ARIAS NOTIFIED OF NEW CONSULT ORDER. EGD ORDERED FRO TOMORROW.
--- NOTE | 2020-01-14 12:31 | NUR ---
PT STATES THAT SHE DOES NOT WANT TO HAVE EGD DONE. DR RANDALL IN TO SEE PT AND AWARE OF PT REFUSING. MESSAGE LEFT ON DR ARIAS'S VOICE MAIL TO MAKE HIM AWARE.
--- NOTE | 2020-01-14 12:32 | NUR ---
AV IN SURGERY NOTIFIED EGD IS CANCELLED.
--- NOTE | 2020-01-14 14:46 | NUR ---
PT CONTINUES TO VOICE SHE WANTS TO RETURN HOME ON DISCHARGE WHEN MEDICALLY STABLE WITH NO NEW NEEDS.
[2020-01-14 16:00] VITALS: BP 133/64
--- NOTE | 2020-01-14 16:00 | NUR ---
PT MEDICATED WITH NORCO FOR C/O CHRONIC PAIN TO LEGS AND FEET.
[2020-01-14 18:40] LABS: BILIRUBIN NEGATIVE (NEGATIVE); BLOOD 3+ (NEGATIVE); CLARITY SL CLOUDY (CLEAR); COLOR YELLOW (YELLOW); GLUCOSE NEGATIVE (NEGATIVE); KETONE NEGATIVE (NEGATIVE); LEUKO ESTERASE NEGATIVE (NEGATIVE); NITRITE NEGATIVE (NEGATIVE); RBC 41-50 rbc/hpf (0-2); UROBILINOGEN 0.2 E.U./dl (0.2-1.0)
--- NOTE | 2020-01-14 19:31 | NUR ---
Patient sitting up in bed, states she is still having pain in her left foot. Patient doesnt want to get bathed tonight, states she will in the morning when they take the catheter out. Patient very anxious to go home. Denies any needs at this time. Patient left with call light in reach.
[2020-01-14 20:01] VITALS: BP 116/56
--- NOTE | 2020-01-14 21:08 | NUR ---
Patient transfered to room 412-2, report given to rosa maxwell.
--- NOTE | 2020-01-14 23:35 | NUR ---
PATIENT MEDICATED WITH TYLENOL PER PRN ORDER FOR C/O HEADACHE. RATED PAIN A 7/10 WITH 10 BEING THE WORST. SEE EMAR. REINFORCED USE OF CALL LIGHT.
[2020-01-15] VITALS: BP 116/67
--- NOTE | 2020-01-15 01:00 | NUR ---
PATIENT RESTING QUIETLY. MEDICATION GIVEN EARLIER .APPEARS TO BE EFFECTIVE
[2020-01-15 06:47] LABS: BASO % 0.5 % (0.0-1.0); EOS # 0.4 10*3/uL (0.0-0.4); EOS % 5.4 % (1.0-4.0); HEMOGLOBIN 8.1 g/dl (12.0-16.0); LYMPH # 0.7 10*3/uL (1.3-4.4); LYMPH % 8.5 % (27.0-41.0); MEAN CELL VOLUME 88.7 fl (81.0-99.0); MEAN CORPUSCULAR HGB 28.7 pg (27.0-31.0); MEAN CORPUSCULAR HGB CONC 32.4 g/dl (33.0-37.0); MEAN PLATELET VOLUME 9.8 fl (9.6-12.3); MONO # 0.7 10*3/uL (0.1-1.0); MONO % 9.3 % (3.0-9.0); NEUT # 5.9 10*3/uL (2.3-7.9); NEUT % 75.5 % (47.0-73.0); PLATELET COUNT AUTOMATED 183 10*3/uL (130-400); RED BLOOD COUNT 2.82 10*6/uL (4.10-5.10); RED CELL DISTRI WIDTH 13.9 % (0-14.5); WHITE BLOOD COUNT 7.9 10*3/uL (4.8-10.8)
[2020-01-15 07:14] LABS: ALBUMIN 2.3 gm/dl (3.1-4.5); POTASSIUM 3.6 mmol/L (3.5-5.1)
[2020-01-15 07:16] LABS: CREATININE 3.69 mg/dL (0.55-1.02); PHOSPHOROUS 4.5 mg/dL (2.5-4.9); TOTAL PROTEIN 5.2 gm/dL (6.4-8.2)
[2020-01-15 08:00] VITALS: BP 112/52
--- NOTE | 2020-01-15 10:00 | NUR ---
PT COMPLAINS OF HEADACHE. PRN TYLENOL PULLED FROM PYXIS. UPON ENTERING ROOM PT IS ASLEEP. WILL ADMINISTER TYLENOL WHEN PT WAKES UP. NO S/S DISTRESS OR SOB NOTED. BED IN LOWEST LOCKED POSITION AND CALL LIGHT WITHIN REACH.
[2020-01-15 12:00] VITALS: BP 123/53
[2020-01-15 16:00] VITALS: BP 120/63
[2020-01-15 20:00] VITALS: BP 132/59
--- NOTE | 2020-01-15 22:10 | NUR ---
PATIENT MEDICATED WITH TYLENOL PER PRN ORDER FOR C/O HEADACHE. RATED PAIN A 5/10 WITH 10 BEING THE WORST. SEE EMAR. REINFORCED USE OF CALL LIGHT.
[2020-01-16] VITALS: BP 105/54
--- NOTE | 2020-01-16 02:00 | NUR ---
NOTIFIED THAT PATIENT REFUSED 2 AM TROPONIN.
--- NOTE | 2020-01-16 06:00 | NUR ---
MESSAGE LEFT WITH ANSWERING SERVICE REGARDING CONSULT ORDER FOR
[2020-01-16 06:56] LABS: BASO % 0.3 % (0.0-1.0); EOS # 0.1 10*3/uL (0.0-0.4); EOS % 1.1 % (1.0-4.0); HEMATOCRIT 24.5 % (37.0-47.0); LYMPH # 0.7 10*3/uL (1.3-4.4); LYMPH % 7.6 % (27.0-41.0); MEAN CELL VOLUME 89.1 fl (81.0-99.0); MEAN CORPUSCULAR HGB 29.1 pg (27.0-31.0); MEAN CORPUSCULAR HGB CONC 32.7 g/dl (33.0-37.0); MEAN PLATELET VOLUME 10.5 fl (9.6-12.3); MONO # 0.7 10*3/uL (0.1-1.0); NEUT # 7.4 10*3/uL (2.3-7.9); NEUT % 82.1 % (47.0-73.0); PLATELET COUNT AUTOMATED 199 10*3/uL (130-400); RED BLOOD COUNT 2.75 10*6/uL (4.10-5.10); RED CELL DISTRI WIDTH 13.8 % (0-14.5)
[2020-01-16 07:20] LABS: ALBUMIN 2.3 gm/dl (3.1-4.5); CREATININE 3.08 mg/dL (0.55-1.02); POTASSIUM 3.4 mmol/L (3.5-5.1); TOTAL PROTEIN 5.7 gm/dL (6.4-8.2)
--- NOTE | 2020-01-16 07:46 | NUR ---
TOOK OVER CARE OF PT. PT HEPARIN DRIP RESTARTED AT THIS TIME DUE TO HIGH APTT AND BEING HELD FOR 60 MIN PER PROTOCOL. PT HEPARIN DRIP RATE DECREASED BY 3 UNITS/KG/HOUR PER PROTOCOL. RATE DECREASED FROM 18 UNIT/KG/HR TO 15 UNIT/KG/HR. VERIFIED BY 2 NURSES, MYSELF AND DALTON VASQUEZ. APPROPRIATE CHANGES MADE TO HEPARIN ORDER ON EMAR. WILL CONTINUE TO MONITOR. PT ALERT ORIENTED AND PLEASANT MOOD WITH CLEAR/APPROPRIATE SPEECH. RESPIRATIONS EASY AND UNLABORED ON ROOM AIR. CALL LIGHT IN REACH.
[2020-01-16 08:30] VITALS: BP 132/80
--- NOTE | 2020-01-16 08:30 | NUR ---
PT STARTS TO YELL OUT AT THIS TIME AND STATES THAT SHE IS HAVING MIDSTERNAL CHEST PAIN/PRESSURE. PT IS TACHYCARDIC ON CM. PT ALSO STATES THAT SHE FEELS NAUSEOUS AND HAS ONE EPISODE OF EMESIS. STAT EKG ORDERED PER NURSING MEASURE. DR RANDALL NOTIFIED OF THIS AND ORDERS A SET OF TROPONINS, MORPHINE 2MG X1, AND ASKS FOR MAGGREG TO BE NOTIFIED OF THIS.
--- NOTE | 2020-01-16 08:35 | NUR ---
VITALS OBTAINED ON PT. WNL. PT REQUESTS 2L NC. MORPHINE ALSO GIVEN. CAMPER ASSEMBLER AT BEDSIDE FOR EKG.
--- NOTE | 2020-01-16 08:40 | NUR ---
DR SMILEY NOTIFIED OF CHEST PAIN, VITALS, AND MEDICATIONS/ORDERS THAT HAVE BEEN PUT IN PLACE. PHYSICIAN STATES OKAY AND STATES THAT HE BELIEVES THIS MAY BE ANXIETY. WILL CONTINUE TO MONITOR AND CALL PHYSICIAN WITH ANY CHANGES.
--- NOTE | 2020-01-16 09:35 | NUR ---
MORPHINE EFFECTIVE. NO FURTHER S/S OF DISTRESS NOTED. PT DENIES CHEST PAIN AT THIS TIME AND STATES THAT SHE IS FEELING MUCH BETTER. WILL CONTINUE TO MONITOR.
--- NOTE | 2020-01-16 11:10 | NUR ---
PATIENT ASKS FOR RAZOR AT THIS TIME. IT IS EXPLAINED TO PT THAT SHE CANNOT ATTEMPT TO SHAVE FACE AT THIS TIME WHILE ON HEPARIN DRIP DUE TO THE RISK OF CUTTING HERSELF AND THE POTENTIAL INABILITY TO STOP THE BLEEDING, SHOULD THAT OCCUR. PT STATES THAT SHE UNDERSTANDS.
--- NOTE | 2020-01-16 11:30 | NUR ---
Mulu NOTIFIES THIS NURSE THAT PT REFUSES TO HAVE TROPONIN LAB DRAWN. DR RANDALL NOTIFIED OF THIS AND THAT PT IS ALSO REFUSING TO HAVE VITALS TAKEN AND REFUSING AM ALLOPURINOL. PHYSICIAN ASKS TO SPEAK WITH PATIENT, CALL TRANSFERRED INTO PATIENT'S ROOM AT THIS TIME.
--- NOTE | 2020-01-16 11:42 | NUR ---
PT REFUSING NOON VITALS AT THIS TIME.
--- NOTE | 2020-01-16 12:00 | NUR ---
PER PT REQUEST, DR RANDALL CALLED SO THAT HE COULD TELL THIS NURSE WHAT HE TOLD THE PATIENT. DR RANDALL STATES THAT PT WANTS TO GO HOME TOMORROW BUT HE DOES NOT FEEL THAT IT IS LIKELY THAT SHE WILL BE DISCHARGED. DR RANDALL OKAYS TROPONIN SET FROM TODAY TO BE CANCELLED DUE TO PATIENT REFUSING. NEW ORDERS RECEIVED FOR BMP AND TROPONIN IN THE MORNING. WILL NOTIFY PATIENT OF THIS.
[2020-01-16 16:00] VITALS: BP 108/48
[2020-01-16 20:00] VITALS: BP 127/58
--- NOTE | 2020-01-16 23:44 | NUR ---
PT REFUSING BLOOD PRESSURE TO BE TAKEN AT THIS TIME. BUT ALL OTHER VITALS WITHN NORMAL LIMITS. SHE STATES HER ARM IS TOO SORE AND SWOLLEN TO BE USED
--- NOTE | 2020-01-17 01:29 | NUR ---
24 HR chart check completed.
--- NOTE | 2020-01-17 02:12 | NUR ---
CHECKED PATIENTS OSTOMY AT THIS TIME. PATIENT REQUESTS IT TO BE CHECKED RANDOMLY SHE WORRIES ABOUT IT EXPLODING. BAG NOT VERY FULL. WILL RECHECK. CALL LIGHT WITHIN REACH, WLL MONITOR
--- NOTE | 2020-01-17 03:12 | NUR ---
PATIENT SLEEPING, NO DISTRESS NOTED. CALL LIGHT WITHIN REACH, WILL MONITOR
--- NOTE | 2020-01-17 06:26 | NUR ---
NOTIFIED DR. RANDALL OF PATIENTS TROPONIN AND PTT. NO NEW ORDERS RECEIVED
[2020-01-17 06:54] LABS: CREATININE 2.75 mg/dL (0.55-1.02)
[2020-01-17 07:02] LABS: POTASSIUM 4.8 mmol/L (3.5-5.1)
[2020-01-17 08:00] VITALS: BP 97/45
--- NOTE | 2020-01-17 08:48 | NUR ---
REFUSING ALLOPURINOL. EDUCATED PT ON NEED FOR MEDS AND WHAT IT DOES FOR HER. STILL REFUSED. TOLERATED ALL OTHER PO MEDS WELL. CALL LIGHT IN REACH. HOPING TO BE DISCAHRGED TODAY.
[2020-01-17 12:00] VITALS: BP 130/73
[2020-01-17 16:00] VITALS: BP 132/69
[2020-01-17 20:00] VITALS: BP 138/55
[2020-01-18] VITALS: BP 118/58
--- NOTE | 2020-01-18 06:53 | NUR ---
PATIENTS HEPARIN PUT ON HOLD FOR 1 HOUR PER POLICY
[2020-01-18 07:08] LABS: CREATININE 2.36 mg/dL (0.55-1.02); POTASSIUM 4.7 mmol/L (3.5-5.1)
[2020-01-18 08:00] VITALS: BP 118/50
--- NOTE | 2020-01-18 08:00 | NUR ---
HEPARIN DRIP RESTARTED AT 12U/KG/HR @ 8.8 ML/HR. WILL MONITOR. NO COMPLAINTS VOICED.
[2020-01-18 12:00] VITALS: BP 112/88
[2020-01-18] MEDS ORDERED: PREDNISONE20 M1 PO (12:35)
[2020-01-18] MEDS ORDERED: PREDNISONE10 MG PO (12:35)
[2020-01-18] MEDS ORDERED: ALLOPURINOL100 MG PO (12:35)
[2020-01-18] MEDS ORDERED: PANTOPRAZOLE SO40 MG PO (12:35)
[2020-01-18] MEDS ORDERED: LOPRESSOR25 MG PO (12:35)
[2020-01-18] MEDS ORDERED: LEVOFLOXACIN500 MG PO (12:35)
[2020-01-18] MEDS ORDERED: ELIQUIS5 M2 PO (12:38)
--- NOTE | 2020-01-18 16:23 | NUR ---
PT SAYS SHE CANNOT PAY 500$ FOR ELIQUIS. INFORMED SAID SHE WOULD GIVE THIS NURSE A CALL BACK AND MAY BE ABLE TO SWITCH HER TO XARELTO.
--- NOTE | 2020-01-18 16:59 | NUR ---
Discharge instructions reviewed with patient/family. Patient receptive and verbalizes understanding. Follow-up care arranged. Written instructions given to patient/family. ANGELY NATHAN
== END 2020-01-18 16:40 | disposition home or self-care (01) | DRG 871 ==
LOC: ED 18:51 → 4E 23:52 → EDHOLD 23:52 → ICCU 23:52 → 4E 01-14 20:52
PROVIDERS: Emergency Medicine; Internal Medicine; Internal Medicine Nephrology; Student in an Organized Health Care Education/Training Program; ADMIT Internal Medicine
DX: A41.9 Sepsis, unspecified organism (principal); N17.0 Acute kidney failure with tubular necrosis; J18.9 Pneumonia, unspecified organism; E87.2 Acidosis; E87.1 Hypo-osmolality and hyponatremia; N18.4 Chronic kidney disease, stage 4 (severe); I82.622 Acute embolism and thrombosis of deep veins of left upper extremity; R65.20 Severe sepsis without septic shock; A08.4 Viral intestinal infection, unspecified; E87.5 Hyperkalemia; E86.0 Dehydration; I95.89 Other hypotension; D64.9 Anemia, unspecified; E87.8 Other disorders of electrolyte and fluid balance, not elsewhere classified; R74.8 Abnormal levels of other serum enzymes; E83.51 Hypocalcemia; R91.8 Other nonspecific abnormal finding of lung field; E78.5 Hyperlipidemia, unspecified; J41.0 Simple chronic bronchitis; K21.9 Gastro-esophageal reflux disease without esophagitis; F32.9 Major depressive disorder, single episode, unspecified; M54.9 Dorsalgia, unspecified; G89.29 Other chronic pain; I12.9 Hypertensive chronic kidney disease with stage 1 through stage 4 chronic kidney disease, or unspecified chronic kidney disease; E83.39 Other disorders of phosphorus metabolism; M10.9 Gout, unspecified; Z87.891 Personal history of nicotine dependence; Z93.3 Colostomy status; Z88.1 Allergy status to other antibiotic agents; Z88.8 Allergy status to other drugs, medicaments and biological substances; Z79.899 Other long term (current) drug therapy; Z95.5 Presence of coronary angioplasty implant and graft; Z82.49 Family history of ischemic heart disease and other diseases of the circulatory system; Z83.3 Family history of diabetes mellitus

== ENCOUNTER 2020-02-04 17:21 | Inpatient (IN) | payer OTHER ==
[~2020-02-04] VITALS: Ht 163.8 cm; Wt 68.8 kg
[~2020-02-04 17:21] MED LIST changes: +ALLOPURINOL100 MG PO; +CLOPIDOGREL75 MG PO; +ELIQUIS5 M2 PO; +LASIX20 MG PO; +LEVOFLOXACIN500 MG PO; +LOPRESSOR50 M1 PO; +PANTOPRAZOLE SO40 MG PO; +PREDNISONE20 M1 PO; +PRINIVIL5 M1 PO
[2020-02-04 17:23] VITALS: BP 97/51
--- NOTE | 2020-02-04 17:25 | NUR ---
PATIENT DENIES ANY WOUNDS A&OX4.
[2020-02-04 17:50] LABS: BASO # 0.1 10*3/uL (0.0-0.1); BASO % 0.5 % (0.0-1.0); EOS # 0.3 10*3/uL (0.0-0.4); EOS % 3.4 % (1.0-4.0); HEMATOCRIT 27.8 % (37.0-47.0); LYMPH # 1.1 10*3/uL (1.3-4.4); LYMPH % 10.8 % (27.0-41.0); MEAN CELL VOLUME 91.4 fl (81.0-99.0); MEAN CORPUSCULAR HGB 28.6 pg (27.0-31.0); MEAN CORPUSCULAR HGB CONC 31.3 g/dl (33.0-37.0); MEAN PLATELET VOLUME 8.9 fl (9.6-12.3); MONO # 0.7 10*3/uL (0.1-1.0); NEUT # 7.6 10*3/uL (2.3-7.9); NEUT % 76.3 % (47.0-73.0); PLATELET COUNT AUTOMATED 275 10*3/uL (130-400); RED BLOOD COUNT 3.04 10*6/uL (4.10-5.10)
[2020-02-04 18:01] LABS: ACT PARTIAL THROMBO TIME 23.4 SECONDS (20.0-32.1); INTERNATIONAL NORM RATIO 0.9 (2.0-3.5)
[2020-02-04 18:06] LABS: CREATININE 2.52 mg/dL (0.55-1.02); TOTAL PROTEIN 6.3 gm/dL (6.4-8.2)
[2020-02-04 18:09] LABS: POTASSIUM 6.1 mmol/L (3.5-5.1)
[2020-02-04 18:10] LABS: TROPONIN I 0.052 ng/ml (<0.045)
--- NOTE | 2020-02-04 19:08 | NUR ---
REPORT GIVEN TO ROSA HOFFMAN.
[2020-02-04 20:00] VITALS: BP 121/70
--- NOTE | 2020-02-04 21:50 | NUR ---
PT PROVIDED SANDWICH BOX LUNCH.
--- NOTE | 2020-02-04 22:34 | NUR ---
Time: 2233 A 79 year old FEMALE admitted to [facility] under services of DR. TONIA FAROOQ,DAMION. Pt. arrived via wheel chair from ER. Chief complaint: CHF,AKF,HYPERKALEMIA. SHANICE YU
--- NOTE | 2020-02-04 23:47 | NUR ---
DR OHARA STATES DR AMARAL AWARE OF CONSULT.
--- NOTE | 2020-02-04 23:57 | NUR ---
MED REC COMPLETE PER PT
[2020-02-05 01:19] LABS: BILIRUBIN NEGATIVE (NEGATIVE); BLOOD NEGATIVE (NEGATIVE); CLARITY CLEAR (CLEAR); COLOR YELLOW (YELLOW); GLUCOSE NEGATIVE (NEGATIVE); KETONE NEGATIVE (NEGATIVE); LEUKO ESTERASE NEGATIVE (NEGATIVE); NITRITE NEGATIVE (NEGATIVE); UROBILINOGEN 0.2 E.U./dl (0.2-1.0)
[2020-02-05 01:36] LABS: RBC 0-2 rbc/hpf (0-2); WBC 0-2 wbc/hpf (0-5)
--- NOTE | 2020-02-05 03:45 | NUR ---
TUMS GIVEN PER PT REQUEST FOR C/O GAS "NEEDING TO BURP" MORPHINE GIVEN PER PRN ORDER PER PT REQUEST FOR EPIGASTRIC/CHEST/JAW PAIN. PATIENT SPITTING UP BROWN PHLEGM AND CLEAR LIQUID, DENIES NAUSEA. COOL RAG PROVIDED FOR COMFORT. REQUESTING O2, SPO2 IS 98% ON ROOM AIR. WILL MONITOR.
--- NOTE | 2020-02-05 04:05 | NUR ---
PATIENT ABLE TO REST. MEDICATIONS EFFECTIVE.
[2020-02-05 06:08] LABS: BASO # 0.1 10*3/uL (0.0-0.1); BASO % 0.6 % (0.0-1.0); EOS # 0.3 10*3/uL (0.0-0.4); EOS % 2.9 % (1.0-4.0); LYMPH # 0.9 10*3/uL (1.3-4.4); LYMPH % 9.8 % (27.0-41.0); MEAN CELL VOLUME 91.9 fl (81.0-99.0); MEAN CORPUSCULAR HGB CONC 31.5 g/dl (33.0-37.0); MONO # 0.9 10*3/uL (0.1-1.0); NEUT # 7.2 10*3/uL (2.3-7.9); NEUT % 75.2 % (47.0-73.0); PLATELET COUNT AUTOMATED 233 10*3/uL (130-400); RED BLOOD COUNT 2.83 10*6/uL (4.10-5.10); RED CELL DISTRI WIDTH 14.7 % (0-14.5); WHITE BLOOD COUNT 9.6 10*3/uL (4.8-10.8)
[2020-02-05 06:32] LABS: POTASSIUM 5.4 mmol/L (3.5-5.1)
[2020-02-05 06:35] LABS: CREATININE 2.17 mg/dL (0.55-1.02); PHOSPHOROUS 3.6 mg/dL (2.5-4.9)
[2020-02-05 08:00] VITALS: BP 124/70
--- NOTE | 2020-02-05 09:00 | NUR ---
[employer] Drafter in to talk to patient. Patient states lives at home alone in a double wide behind her son's home. There are 3 outside steps. Physician: Dr. Jagdish Gordon [facility] Home health services: would like an [facility] RN on discharge Patient's level of ADLs: INDEPENDENT Patient has working utilities: yes DME: none Follow-up physician's appointment after d/c: she prefers to make her own follow up appt after discharge Does patient want to access PORTAL?: no Discharge plan discussed with patient. She lives at home behind her son. She is independent in her ADLs and ambulation. Discussed home health care services and she would like a nurse. When provided with a list of agencies she chose [facility]. Dr. Gordon notified. When medically stable she will be discharged to home with [facility] services. She states her son will provide transportation on discharge. LOBO ASHER
--- NOTE | 2020-02-05 15:08 | NUR ---
MORPHINE GIVEN FOR C/O ABDM. PAIN. RATES 8/10 ON PAIN SCALE. WILL MONITOR.
[2020-02-05 16:00] VITALS: BP 118/73
[2020-02-05 20:00] VITALS: BP 100/50
--- NOTE | 2020-02-05 22:00 | NUR ---
24 HOUR COLLECTION STARTED AT THIS TIME.
--- NOTE | 2020-02-05 22:13 | NUR ---
NOTIFIED DR. ODELL OF NEW CONSULT. NO NEW ORDERS RECEIVED.
[2020-02-06] VITALS: BP 103/48
--- NOTE | 2020-02-06 04:00 | NUR ---
PATIENT SLEEPING, NO SIGNS OF DISTRESS. RESPIRATIONS EASY,NON LABORED. BED IN LOWEST POSITIN CALL LIGHT WITHIN REACH. WILL CONTINUE TO MONITOR.
[2020-02-06 06:58] LABS: CREATININE 2.02 mg/dL (0.55-1.02); POTASSIUM 5.2 mmol/L (3.5-5.1)
[2020-02-06 08:00] VITALS: BP 125/62
[2020-02-06 12:00] VITALS: BP 122/85
--- NOTE | 2020-02-06 15:00 | NUR ---
IV ACCIDENTALLY PULLED OUT BY PATIENT. PT REFUSES RESTICK. DR. RANDALL AWARE.
[2020-02-06 16:00] VITALS: BP 98/52
--- NOTE | 2020-02-06 16:34 | NUR ---
PT NONCOMPLIANT WITH 24 HOUR URINE COLLECTION SHE DOES NOT GO IN THE HAT PROVIDED OR DUMPS OUT THE URINE EACH TIME.
--- NOTE | 2020-02-06 19:50 | NUR ---
CONTACTED IN REFERENCE TO PATIENT CONTINUING TO REFUSE A PERIPHERAL IV AND TO HAVE HER MEDIPORT ACCESSED. ALL IV MEDICAITONS CHANGED TO PO AND PATIENT IS TO BE ENCOURAGED TO INCREASE HER INTAKE OF WATER. CHANGES MADE TO MEDICATIONS IN EMAR.
[2020-02-06 20:00] VITALS: BP 112/60
--- NOTE | 2020-02-06 20:18 | NUR ---
PRN ZOFRAN GIVEN AT THIS TIME FOR COMPLAINT OF NAUSEA AND PRN NORCO GIVEN AT THIS TIME FOR COMPLAINT OF 8/10 ABDOMINAL PAIN. PATIENT A&OX3 AT THIS TIME AND SITTING ON THE SIDE OF THE BED. ASSESSMENT NEGATIVE AT THIS TIME, PATIENT DENIED ANY PAIN TO ABDOMEN WHEN PALPATED AND AUSCULTATED. DENIES ANY OTHER NEEDS AT THIS TIME. WILL CONTINUE TO MONITOR.
--- NOTE | 2020-02-06 20:25 | NUR ---
PATIENT ADVISED OF MEDICATION CHANGES AND ENCOURAGED TO INCREASE HER INTAKE OF WATER AT THIS TIME.
--- NOTE | 2020-02-06 21:15 | NUR ---
PATIENT STATED THAT HER PAIN WAS NOW A 5/10 AFTER PRN NORCO AND ZOFRAN WERE ADMINISTERED. A&O X3 WILL CONTINUE TO MONITOR.
--- NOTE | 2020-02-06 21:26 | NUR ---
24 HOUR CHART CHECK COMPLETED
[2020-02-07] VITALS: BP 95/57
[2020-02-07 06:01] LABS: CREATININE 1.98 mg/dL (0.55-1.02); POTASSIUM 5.4 mmol/L (3.5-5.1)
[2020-02-07 08:00] VITALS: BP 107/65
[2020-02-07] MEDS ORDERED: ELIQUIS5 M1 PO (10:34)
[2020-02-07] MEDS ORDERED: ZOFRAN4 MG PO (12:04)
--- NOTE | 2020-02-07 12:41 | NUR ---
Discharge instructions reviewed with patient/family. Patient receptive and verbalizes understanding. Follow-up care arranged. Written instructions given to patient/family. JOSE GARCÍA
--- NOTE | 2020-02-08 07:46 | NUR ---
Faxed home health order to [facility]
--- NOTE | 2020-02-08 14:11 | NUR ---
Received call from Татьяна at [facility] regarding patient's refusal of home health care services.
== END 2020-02-07 12:41 | disposition home or self-care (01) | DRG 683 ==
LOC: ED 17:21 → 4NE 20:10 → 4E 20:10 → EDHOLD 20:10 → 4NE 20:41 → 4E 02-05 14:58
PROVIDERS: Family Medicine; Internal Medicine; ADMIT Internal Medicine
DX: N17.0 Acute kidney failure with tubular necrosis (principal); I13.0 Hypertensive heart and chronic kidney disease with heart failure and stage 1 through stage 4 chronic kidney disease, or unspecified chronic kidney disease; E87.2 Acidosis; E87.5 Hyperkalemia; R79.89 Other specified abnormal findings of blood chemistry; E78.5 Hyperlipidemia, unspecified; E55.9 Vitamin D deficiency, unspecified; K21.9 Gastro-esophageal reflux disease without esophagitis; I95.9 Hypotension, unspecified; J43.9 Emphysema, unspecified; N18.3 Chronic kidney disease, stage 3 (moderate); I50.9 Heart failure, unspecified; K80.20 Calculus of gallbladder without cholecystitis without obstruction; I25.10 Atherosclerotic heart disease of native coronary artery without angina pectoris; Z53.29 Procedure and treatment not carried out because of patient's decision for other reasons; G89.29 Other chronic pain; M54.9 Dorsalgia, unspecified; E87.8 Other disorders of electrolyte and fluid balance, not elsewhere classified; Z79.899 Other long term (current) drug therapy; Z79.01 Long term (current) use of anticoagulants; Z86.718 Personal history of other venous thrombosis and embolism; Z85.118 Personal history of other malignant neoplasm of bronchus and lung; Z93.3 Colostomy status; I25.2 Old myocardial infarction; Z95.5 Presence of coronary angioplasty implant and graft; Z88.1 Allergy status to other antibiotic agents; Z88.8 Allergy status to other drugs, medicaments and biological substances; Z98.51 Tubal ligation status; Z82.49 Family history of ischemic heart disease and other diseases of the circulatory system; Z83.3 Family history of diabetes mellitus; Z87.891 Personal history of nicotine dependence

== ENCOUNTER 2020-02-08 22:14 | Inpatient (IN) | payer OTHER ==
[~2020-02-08] VITALS: Ht 162.5 cm; Wt 68.2 kg
[2020-02-08 17:17] LABS: CREATININE 2.4 mg/dL (0.55-1.02); POTASSIUM 4.6 mmol/L (3.5-5.1)
[~2020-02-08 22:14] MED LIST changes: +ELIQUIS5 M1 PO
[2020-02-08 22:41] VITALS: BP 131/79
[2020-02-08 22:45] LABS: BASO % 0.2 % (0.0-1.0); EOS # 0.3 10*3/uL (0.0-0.4); EOS % 2.9 % (1.0-4.0); HEMATOCRIT 25.8 % (37.0-47.0); LYMPH # 1.1 10*3/uL (1.3-4.4); LYMPH % 11.6 % (27.0-41.0); MEAN CELL VOLUME 91.5 fl (81.0-99.0); MEAN CORPUSCULAR HGB 29.1 pg (27.0-31.0); MEAN CORPUSCULAR HGB CONC 31.8 g/dl (33.0-37.0); MEAN PLATELET VOLUME 8.5 fl (9.6-12.3); MONO # 0.7 10*3/uL (0.1-1.0); MONO % 7.4 % (3.0-9.0); NEUT # 7.1 10*3/uL (2.3-7.9); NEUT % 76.8 % (47.0-73.0); PLATELET COUNT AUTOMATED 232 10*3/uL (130-400); RED BLOOD COUNT 2.82 10*6/uL (4.10-5.10); RED CELL DISTRI WIDTH 14.6 % (0-14.5); WHITE BLOOD COUNT 9.3 10*3/uL (4.8-10.8)
[2020-02-08 23:03] LABS: ALBUMIN 2.8 gm/dl (3.1-4.5); CREATININE 2.44 mg/dL (0.55-1.02); POTASSIUM 4.3 mmol/L (3.5-5.1); TOTAL PROTEIN 6.5 gm/dL (6.4-8.2)
[2020-02-08 23:06] LABS: TROPONIN I 0.164 ng/ml (<0.045)
[2020-02-08 23:15] LABS: ACT PARTIAL THROMBO TIME 22.8 SECONDS (20.0-32.1); INTERNATIONAL NORM RATIO 0.9 (2.0-3.5)
[2020-02-09] VITALS (7 sets, daily range): BP systolic 113–124; BP diastolic 57–70
[2020-02-09 00:36] LABS: LIPASE 163 U/L (73-393)
[2020-02-09 05:09] LABS: ALBUMIN 2.6 gm/dl (3.1-4.5); CREATININE 2.31 mg/dL (0.55-1.02); FREE T4 1.08 ng/dl (0.76-1.46); POTASSIUM 4.7 mmol/L (3.5-5.1); TOTAL PROTEIN 5.7 gm/dL (6.4-8.2)
[2020-02-09 05:14] LABS: THYROID STIM HORMONE (HS) 1.19 uIU/ml (0.358-4.75)
[2020-02-09 06:06] LABS: BASO % 0.4 % (0.0-1.0); EOS # 0.3 10*3/uL (0.0-0.4); EOS % 3.2 % (1.0-4.0); LYMPH # 0.9 10*3/uL (1.3-4.4); LYMPH % 10.2 % (27.0-41.0); MEAN CORPUSCULAR HGB 29.1 pg (27.0-31.0); MEAN CORPUSCULAR HGB CONC 31.7 g/dl (33.0-37.0); MEAN PLATELET VOLUME 9.1 fl (9.6-12.3); MONO # 0.7 10*3/uL (0.1-1.0); MONO % 8.3 % (3.0-9.0); NEUT # 6.5 10*3/uL (2.3-7.9); NEUT % 76.6 % (47.0-73.0); PLATELET COUNT AUTOMATED 222 10*3/uL (130-400); RED BLOOD COUNT 2.61 10*6/uL (4.10-5.10); RED CELL DISTRI WIDTH 14.6 % (0-14.5); WHITE BLOOD COUNT 8.5 10*3/uL (4.8-10.8)
[2020-02-09 06:20] LABS: ACT PARTIAL THROMBO TIME 22.9 SECONDS (20.0-32.1); INTERNATIONAL NORM RATIO 0.9 (2.0-3.5)
[2020-02-10] VITALS (9 sets, daily range): BP systolic 100–136; BP diastolic 48–70
[2020-02-10 06:10] LABS: BASO % 0.2 % (0.0-1.0); EOS # 0.3 10*3/uL (0.0-0.4); EOS % 4.1 % (1.0-4.0); HEMATOCRIT 23.2 % (37.0-47.0); LYMPH # 1.1 10*3/uL (1.3-4.4); LYMPH % 12.6 % (27.0-41.0); MEAN CELL VOLUME 89.9 fl (81.0-99.0); MEAN CORPUSCULAR HGB 28.7 pg (27.0-31.0); MEAN CORPUSCULAR HGB CONC 31.9 g/dl (33.0-37.0); MONO # 0.7 10*3/uL (0.1-1.0); MONO % 8.9 % (3.0-9.0); NEUT # 6.1 10*3/uL (2.3-7.9); NEUT % 72.9 % (47.0-73.0); PLATELET COUNT AUTOMATED 223 10*3/uL (130-400); RED BLOOD COUNT 2.58 10*6/uL (4.10-5.10); RED CELL DISTRI WIDTH 14.7 % (0-14.5); WHITE BLOOD COUNT 8.4 10*3/uL (4.8-10.8)
[2020-02-10 06:29] LABS: CREATININE 2.25 mg/dL (0.55-1.02); POTASSIUM 4.7 mmol/L (3.5-5.1)
[2020-02-11] VITALS: BP 117/51
[2020-02-11 06:04] LABS: BASO % 0.2 % (0.0-1.0); EOS # 0.4 10*3/uL (0.0-0.4); EOS % 4.9 % (1.0-4.0); HEMATOCRIT 27.6 % (37.0-47.0); LYMPH # 0.8 10*3/uL (1.3-4.4); LYMPH % 9.8 % (27.0-41.0); MEAN CELL VOLUME 88.2 fl (81.0-99.0); MEAN CORPUSCULAR HGB 29.1 pg (27.0-31.0); MEAN PLATELET VOLUME 8.8 fl (9.6-12.3); MONO # 0.8 10*3/uL (0.1-1.0); MONO % 9.7 % (3.0-9.0); NEUT # 6.3 10*3/uL (2.3-7.9); NEUT % 73.9 % (47.0-73.0); PLATELET COUNT AUTOMATED 246 10*3/uL (130-400); RED BLOOD COUNT 3.13 10*6/uL (4.10-5.10); RED CELL DISTRI WIDTH 14.6 % (0-14.5); WHITE BLOOD COUNT 8.6 10*3/uL (4.8-10.8)
[2020-02-11 06:09] LABS: POTASSIUM 4.3 mmol/L (3.5-5.1)
[2020-02-11 07:28] LABS: FERRITIN 60.6 ng/mL (10.0-291.0); PTH INTACT 129.1 pg/mL (18.5-88.0)
[2020-02-11 08:00] VITALS: BP 115/63
[2020-02-11 12:00] VITALS: BP 113/54
[2020-02-11 16:00] VITALS: BP 128/66
[2020-02-11 20:00] VITALS: BP 130/62
[2020-02-12] VITALS: BP 117/52
[2020-02-12 06:05] LABS: BASO % 0.3 % (0.0-1.0); EOS # 0.4 10*3/uL (0.0-0.4); EOS % 5.5 % (1.0-4.0); LYMPH # 0.8 10*3/uL (1.3-4.4); LYMPH % 11.4 % (27.0-41.0); MEAN CELL VOLUME 89.1 fl (81.0-99.0); MEAN CORPUSCULAR HGB CONC 32.6 g/dl (33.0-37.0); MEAN PLATELET VOLUME 9.1 fl (9.6-12.3); MONO # 0.9 10*3/uL (0.1-1.0); MONO % 11.8 % (3.0-9.0); NEUT % 69.1 % (47.0-73.0); PLATELET COUNT AUTOMATED 234 10*3/uL (130-400); RED BLOOD COUNT 3.03 10*6/uL (4.10-5.10); RED CELL DISTRI WIDTH 14.6 % (0-14.5); WHITE BLOOD COUNT 7.3 10*3/uL (4.8-10.8)
[2020-02-12 06:07] LABS: POTASSIUM 4.2 mmol/L (3.5-5.1)
[2020-02-12 08:00] VITALS: BP 116/74
[2020-02-12 16:00] VITALS: BP 111/64
[2020-02-12 20:00] VITALS: BP 118/69
[2020-02-13] VITALS: BP 112/64
[2020-02-13 06:13] LABS: BASO % 0.3 % (0.0-1.0); EOS # 0.4 10*3/uL (0.0-0.4); EOS % 4.9 % (1.0-4.0); HEMATOCRIT 27.2 % (37.0-47.0); LYMPH # 0.8 10*3/uL (1.3-4.4); LYMPH % 9.1 % (27.0-41.0); MEAN CELL VOLUME 88.9 fl (81.0-99.0); MEAN CORPUSCULAR HGB 29.1 pg (27.0-31.0); MEAN CORPUSCULAR HGB CONC 32.7 g/dl (33.0-37.0); MEAN PLATELET VOLUME 9.2 fl (9.6-12.3); MONO % 11.3 % (3.0-9.0); NEUT # 6.3 10*3/uL (2.3-7.9); NEUT % 72.8 % (47.0-73.0); PLATELET COUNT AUTOMATED 246 10*3/uL (130-400); RED BLOOD COUNT 3.06 10*6/uL (4.10-5.10); RED CELL DISTRI WIDTH 14.6 % (0-14.5); WHITE BLOOD COUNT 8.6 10*3/uL (4.8-10.8)
[2020-02-13 06:22] LABS: CREATININE 1.99 mg/dL (0.55-1.02); POTASSIUM 4.1 mmol/L (3.5-5.1)
[2020-02-13 08:00] VITALS: BP 123/73
[2020-02-13 12:00] VITALS: BP 105/54
[2020-02-13] MEDS ORDERED: ALLOPURINOL100 MG PO (13:38)
[2020-02-13] MEDS ORDERED: IMDUR SA30 MG PO (13:38)
[2020-02-13] MEDS ORDERED: RANEXA500 M1 PO (13:38)
== END 2020-02-13 14:34 | disposition home or self-care (01) | DRG 444 ==
LOC: EDSTATUS 22:14 → ED 22:15 → EDHOLD 02-09 01:37 → 4E 02-09 01:37
PROVIDERS: Emergency Medicine; Family Medicine; Hospitalist; Internal Medicine Nephrology; ADMIT Internal Medicine
DX: K80.11 Calculus of gallbladder with chronic cholecystitis with obstruction (principal); N17.0 Acute kidney failure with tubular necrosis; E43 Unspecified severe protein-calorie malnutrition; N18.4 Chronic kidney disease, stage 4 (severe); N17.9 Acute kidney failure, unspecified; R07.89 Other chest pain; E87.8 Other disorders of electrolyte and fluid balance, not elsewhere classified; I12.9 Hypertensive chronic kidney disease with stage 1 through stage 4 chronic kidney disease, or unspecified chronic kidney disease; K21.9 Gastro-esophageal reflux disease without esophagitis; J43.9 Emphysema, unspecified; E87.5 Hyperkalemia; D50.9 Iron deficiency anemia, unspecified; G89.29 Other chronic pain; M54.9 Dorsalgia, unspecified; E79.0 Hyperuricemia without signs of inflammatory arthritis and tophaceous disease; E53.8 Deficiency of other specified B group vitamins; E83.42 Hypomagnesemia; I25.10 Atherosclerotic heart disease of native coronary artery without angina pectoris; I25.2 Old myocardial infarction; Z95.5 Presence of coronary angioplasty implant and graft; Z85.118 Personal history of other malignant neoplasm of bronchus and lung; Z88.1 Allergy status to other antibiotic agents; Z88.8 Allergy status to other drugs, medicaments and biological substances; Z98.51 Tubal ligation status; Z87.891 Personal history of nicotine dependence; Z93.3 Colostomy status; Z83.3 Family history of diabetes mellitus; Z82.49 Family history of ischemic heart disease and other diseases of the circulatory system; Z79.01 Long term (current) use of anticoagulants; Z79.899 Other long term (current) drug therapy; Z86.718 Personal history of other venous thrombosis and embolism

== ENCOUNTER → 2020-04-04 | Outpatient (CLI) | payer OTHER ==
[~2020-04-04] MED LIST changes: +IMDUR SA30 MG PO; +RANEXA500 M1 PO
[2020-04-04 15:37] LABS: BASO # 0.1 10*3/uL (0.0-0.1); BASO % 0.7 % (0.0-1.0); EOS # 0.4 10*3/uL (0.0-0.4); EOS % 4.4 % (1.0-4.0); HEMATOCRIT 35.9 % (37.0-47.0); LYMPH # 0.8 10*3/uL (1.3-4.4); LYMPH % 9.3 % (27.0-41.0); MEAN CELL VOLUME 94.5 fl (81.0-99.0); MEAN CORPUSCULAR HGB 29.7 pg (27.0-31.0); MEAN CORPUSCULAR HGB CONC 31.5 g/dl (33.0-37.0); MEAN PLATELET VOLUME 9.2 fl (9.6-12.3); MONO # 0.6 10*3/uL (0.1-1.0); MONO % 6.9 % (3.0-9.0); NEUT # 6.5 10*3/uL (2.3-7.9); NEUT % 77.3 % (47.0-73.0); PLATELET COUNT AUTOMATED 252 10*3/uL (130-400); RED CELL DISTRI WIDTH 15.7 % (0-14.5); WHITE BLOOD COUNT 8.4 10*3/uL (4.8-10.8)
[2020-04-04 15:53] LABS: CREATININE 2.31 mg/dL (0.55-1.02); POTASSIUM 4.5 mmol/L (3.5-5.1)
== END | disposition home or self-care (01) ==
LOC: LAB 14:35
PROVIDERS: Internal Medicine
DX: J44.1 Chronic obstructive pulmonary disease with (acute) exacerbation (principal); M19.211 Secondary osteoarthritis, right shoulder

== ENCOUNTER → 2020-06-28 | Outpatient (CLI) | payer OTHER ==
[~2020-06-28] MED LIST changes: +METAMUCIL FIBE3.4 GM PO; +MIDODRINE HCL2.5 MG PO; +NITRO-DUR1 EAC1 T
[2020-06-28 15:04] LABS: CREATININE 1.93 mg/dL (0.55-1.02)
[2020-06-29 08:08] LABS: RHEUMATOID ARTHRITIS FACTOR <10.0 IU/mL (0.0-13.9)
[2020-06-30 00:06] LABS: CCP ANTIBODIES IGG/IGA 4 units (0-19)
== END | disposition home or self-care (01) ==
LOC: LAB 13:56
PROVIDERS: ATTEND Internal Medicine
DX: R06.02 Shortness of breath (principal); M06.9 Rheumatoid arthritis, unspecified

== ENCOUNTER → 2020-07-04 | Outpatient (CLI) | payer OTHER | END | disposition home or self-care (01) | LOC: LAB 12:56 | PROVIDERS: ATTEND Internal Medicine | DX: R76.8 Other specified abnormal immunological findings in serum (principal) ==

== ENCOUNTER → 2020-10-17 | Outpatient (CLI) | payer OTHER ==
[2020-10-17 11:25] LABS: BASO # 0.1 10*3/uL (0.0-0.1); BASO % 0.9 % (0.0-1.0); EOS # 0.2 10*3/uL (0.0-0.4); EOS % 1.7 % (1.0-4.0); HEMATOCRIT 36.2 % (37.0-47.0); LYMPH # 1.3 10*3/uL (1.3-4.4); LYMPH % 9.2 % (27.0-41.0); MEAN CELL VOLUME 88.5 fl (81.0-99.0); MEAN CORPUSCULAR HGB 28.4 pg (27.0-31.0); MEAN PLATELET VOLUME 9.1 fl (9.6-12.3); MONO # 0.8 10*3/uL (0.1-1.0); MONO % 5.4 % (3.0-9.0); NEUT # 11.4 10*3/uL (2.3-7.9); NEUT % 81.7 % (47.0-73.0); PLATELET COUNT AUTOMATED 308 10*3/uL (130-400); RED BLOOD COUNT 4.09 10*6/uL (4.10-5.10); RED CELL DISTRI WIDTH 14.3 % (0-14.5)
[2020-10-17 11:53] LABS: ALBUMIN 3.4 gm/dl (3.1-4.5); ALKALINE PHOSPHATASE 185 U/L (45-117); BUN 55 mg/dl (7-24); CHLORIDE 109 mmol/L (98-107); POTASSIUM 4.5 mmol/L (3.5-5.1); SGOT/AST 14 IU/L (3-35); SGPT/ALT 15 U/L (12-78); SODIUM 139 mmol/L (136-145); TOTAL PROTEIN 6.9 gm/dL (6.4-8.2); URIC ACID 12.3 mg/dL (2.6-6.0)
[2020-10-18 04:06] LABS: RHEUMATOID ARTHRITIS FACTOR 12.3 IU/mL (0.0-13.9)
[2020-10-18 12:09] LABS: ANTI-DSDNA ANTIBODIES <1 IU/mL (0-9)
[2020-10-19 00:09] LABS: CCP ANTIBODIES IGG/IGA 6 units (0-19)
== END | disposition home or self-care (01) ==
LOC: LAB 10:58
PROVIDERS: ATTEND Internal Medicine
DX: S93.115A Dislocation of interphalangeal joint of left lesser toe(s), initial encounter (principal); M19.042 Primary osteoarthritis, left hand; M19.041 Primary osteoarthritis, right hand; M19.032 Primary osteoarthritis, left wrist; M77.8 Other enthesopathies, not elsewhere classified; M19.031 Primary osteoarthritis, right wrist; M06.9 Rheumatoid arthritis, unspecified; M10.9 Gout, unspecified; I10 Essential (primary) hypertension; X58.XXXA Exposure to other specified factors, initial encounter; Y93.89 Activity, other specified; Y92.89 Other specified places as the place of occurrence of the external cause; Y99.8 Other external cause status

== ENCOUNTER → 2020-11-24 | Outpatient (CLI) | payer OTHER ==
[2020-11-24 11:15] LABS: ALBUMIN 3.9 gm/dl (3.1-4.5); CREATININE 3.61 mg/dL (0.55-1.02); POTASSIUM 4.8 mmol/L (3.5-5.1); TOTAL PROTEIN 7.6 gm/dL (6.4-8.2)
[2020-11-24 11:30] LABS: BILIRUBIN Negative (Negative); BLOOD 1+ (Negative); CLARITY Turbid (Clear); COLOR Yellow (Yellow); GLUCOSE Negative (Negative); KETONE Trace (Negative); LEUKO ESTERASE 3+ (Negative); NITRITE Negative (Negative); UROBILINOGEN 0.2 E.U./dl (0.0-1.0)
[2020-11-24 11:39] LABS: BACTERIA 2+; WBC TNTC wbc/hpf (0-5)
== END | disposition home or self-care (01) ==
LOC: MAMMO 11-23 13:30 → LAB 09:34 → MAMMO 13:00
PROVIDERS: Internal Medicine Nephrology; ATTEND Internal Medicine
DX: N64.89 Other specified disorders of breast (principal); N18.4 Chronic kidney disease, stage 4 (severe); R25.8 Other abnormal involuntary movements; R74.8 Abnormal levels of other serum enzymes; N17.9 Acute kidney failure, unspecified; N39.0 Urinary tract infection, site not specified

== ENCOUNTER → 2020-12-09 | Outpatient (CLI) | payer OTHER ==
[2020-12-09 16:41] LABS: HEMATOCRIT 33.2 % (37.0-47.0); MEAN CELL VOLUME 92.5 fl (81.0-99.0); MEAN CORPUSCULAR HGB 28.4 pg (27.0-31.0); MEAN CORPUSCULAR HGB CONC 30.7 g/dl (33.0-37.0); MEAN PLATELET VOLUME 9.2 fl (9.6-12.3); RED BLOOD COUNT 3.59 10*6/uL (4.10-5.10); WHITE BLOOD COUNT 11.4 10*3/uL (4.8-10.8)
[2020-12-09 16:50] LABS: BILIRUBIN Negative (Negative); BLOOD Negative (Negative); CLARITY Cloudy (Clear); COLOR Yellow (Yellow); GLUCOSE Negative (Negative); KETONE Negative (Negative); LEUKO ESTERASE 2+ (Negative); NITRITE Negative (Negative); SPECIFIC GRAVITY 1.015 (1.001-1.030); UROBILINOGEN 0.2 E.U./dl (0.0-1.0)
[2020-12-09 16:59] LABS: ALBUMIN 3.3 gm/dl (3.1-4.5); CREATININE 2.55 mg/dL (0.55-1.02); POTASSIUM 4.7 mmol/L (3.5-5.1)
[2020-12-09 17:00] LABS: BACTERIA 4+; EPITHELIAL CELLS 51-100; WBC 41-50 wbc/hpf (0-5)
[2020-12-09 18:04] LABS: VITAMIN D, 25-HYDROXY 21.7 ng/mL (30-100)
== END | disposition home or self-care (01) ==
LOC: RAD 15:37 → LAB 15:37
PROVIDERS: ATTEND Internal Medicine Nephrology
DX: M47.816 Spondylosis without myelopathy or radiculopathy, lumbar region (principal); M51.36 Other intervertebral disc degeneration, lumbar region; M41.86 Other forms of scoliosis, lumbar region; N17.9 Acute kidney failure, unspecified; E55.9 Vitamin D deficiency, unspecified; N18.4 Chronic kidney disease, stage 4 (severe); N30.10 Interstitial cystitis (chronic) without hematuria; M48.061 Spinal stenosis, lumbar region without neurogenic claudication; M41.84 Other forms of scoliosis, thoracic region; M51.34 Other intervertebral disc degeneration, thoracic region; M48.04 Spinal stenosis, thoracic region

== ENCOUNTER → 2021-01-25 | Outpatient (CLI) | payer OTHER | END | disposition home or self-care (01) | LOC: MRI 00:42 | PROVIDERS: ATTEND Internal Medicine | DX: M43.16 Spondylolisthesis, lumbar region (principal); M48.07 Spinal stenosis, lumbosacral region; M41.86 Other forms of scoliosis, lumbar region; M51.27 Other intervertebral disc displacement, lumbosacral region; M47.816 Spondylosis without myelopathy or radiculopathy, lumbar region; M51.37 Other intervertebral disc degeneration, lumbosacral region ==

== ENCOUNTER → 2021-04-03 | Outpatient (CLI) | payer OTHER ==
[2021-04-03 10:58] LABS: HEMATOCRIT 31.5 % (37.0-47.0); MEAN CORPUSCULAR HGB 27.7 pg (27.0-31.0); MEAN CORPUSCULAR HGB CONC 31.4 g/dl (33.0-37.0); MEAN PLATELET VOLUME 9.4 fl (9.6-12.3); PLATELET COUNT AUTOMATED 330 10*3/uL (130-400); RED BLOOD COUNT 3.58 10*6/uL (4.10-5.10); RED CELL DISTRI WIDTH 15.4 % (0-14.5); WHITE BLOOD COUNT 15.9 10*3/uL (4.8-10.8)
[2021-04-03 11:14] LABS: BASOPHILS 1 % (0-1); BURR CELLS FEW; CREATININE 2.28 mg/dL (0.55-1.02); OVALOCYTES FEW; PLATELET SUFFICIENCY NORMAL (NORMAL); POLYCHROMASIA SLIGHT; TOTAL CELLS COUNTED 100 #CELLS; URIC ACID 9.9 mg/dL (2.6-6.0)
[2021-04-03 11:15] LABS: SCHISTOCYTES FEW
[2021-04-03 11:23] LABS: THYROID STIM HORMONE (HS) 1.52 uIU/ml (0.358-4.75)
== END | disposition home or self-care (01) ==
LOC: LAB 10:44
PROVIDERS: ATTEND Internal Medicine
DX: E78.5 Hyperlipidemia, unspecified (principal); N18.4 Chronic kidney disease, stage 4 (severe); M1A.09X0 Idiopathic chronic gout, multiple sites, without tophus (tophi); N25.81 Secondary hyperparathyroidism of renal origin

== ENCOUNTER → 2021-09-04 | Outpatient (CLI) | payer OTHER ==
[2021-09-04 15:42] LABS: BASO # 0.1 10*3/uL (0.0-0.1); BASO % 0.6 % (0.0-1.0); EOS # 0.2 10*3/uL (0.0-0.4); HEMATOCRIT 35.4 % (37.0-47.0); MEAN CELL VOLUME 86.3 fl (81.0-99.0); MEAN CORPUSCULAR HGB 27.8 pg (27.0-31.0); MEAN CORPUSCULAR HGB CONC 32.2 g/dl (33.0-37.0); MONO # 0.9 10*3/uL (0.1-1.0); MONO % 7.2 % (3.0-9.0); NEUT % 81.5 % (47.0-73.0); PLATELET COUNT AUTOMATED 334 10*3/uL (130-400); RED CELL DISTRI WIDTH 15.6 % (0-14.5); WHITE BLOOD COUNT 12.2 10*3/uL (4.8-10.8)
[2021-09-04 15:43] LABS: BILIRUBIN Negative (Negative); BLOOD 1+ (Negative); CLARITY Cloudy (Clear); COLOR Yellow (Yellow); GLUCOSE Negative (Negative); KETONE Negative (Negative); LEUKO ESTERASE 2+ (Negative); NITRITE Negative (Negative); SPECIFIC GRAVITY 1.015 (1.001-1.030); UROBILINOGEN 0.2 E.U./dl (0.0-1.0)
[2021-09-04 15:54] LABS: EPITHELIAL CELLS 0-2; HYALINE CAST 0-2; WBC 31-40 wbc/hpf (0-5)
[2021-09-04 15:55] LABS: BACTERIA 1+
[2021-09-04 16:09] LABS: ALBUMIN 3.6 gm/dl (3.1-4.5); CREATININE 5.03 mg/dL (0.55-1.02); POTASSIUM 5.1 mmol/L (3.5-5.1); TOTAL PROTEIN 7.9 gm/dL (6.4-8.2)
== END | disposition home or self-care (01) ==
LOC: LAB 15:18
PROVIDERS: ATTEND Internal Medicine
DX: R10.30 Lower abdominal pain, unspecified (principal)

== ENCOUNTER 2021-10-26 08:38 | Inpatient (IN) | payer OTHER ==
[~2021-10-26] VITALS: Ht 162.5 cm; Wt 59.4 kg
[2021-10-26] VITALS (15 sets, daily range): BP systolic 118–150; BP diastolic 43–93
[~2021-10-26 08:38] MED LIST changes: +ASPIRIN ADULT L81 M2 PO; +CEPHALEXIN500 M1 PO; +FLUCONAZOLE100 MG PO; +GRISEOFULVIN500 M1 PO; +LINEZOLID600 MG PO; +OMEPRAZOLE40 MG PO; +Oscal,Oyster S500 MG PO; +VITAMIN D3125 MC1 PO; +ZYVOX600 MG PO
[2021-10-26 09:04] LABS: HEMATOCRIT 34.1 % (37.0-47.0); MEAN CELL VOLUME 88.3 fl (81.0-99.0); MEAN CORPUSCULAR HGB 27.7 pg (27.0-31.0); MEAN CORPUSCULAR HGB CONC 31.4 g/dl (33.0-37.0); MEAN PLATELET VOLUME 10.1 fl (9.6-12.3); NUCLEATED RED BLOOD CELL 0.1 10*3/uL (0.0-0.0); NUCLEATED RED BLOOD CELL 0.4 % (0.0-0.0); PLATELET COUNT AUTOMATED 228 10*3/uL (130-400); RED BLOOD COUNT 3.86 10*6/uL (4.10-5.10); RED CELL DISTRI WIDTH 15.7 % (0-14.5); WHITE BLOOD COUNT 19.4 10*3/uL (4.8-10.8)
[2021-10-26 09:15] LABS: ACT PARTIAL THROMBO TIME 24.5 SECONDS (20.0-32.1)
[2021-10-26 09:40] LABS: PLATELET SUFFICIENCY NORMAL (NORMAL); POLYCHROMASIA SLIGHT; TOTAL CELLS COUNTED 100 #CELLS; TOXIC GRANULATION SLIGHT
[2021-10-26 10:09] LABS: ALBUMIN 3.5 gm/dl (3.1-4.5); CREATININE 3.88 mg/dL (0.55-1.02); TOTAL PROTEIN 7.7 gm/dL (6.4-8.2)
[2021-10-26 10:17] LABS: POTASSIUM 8.2 mmol/L (3.5-5.1)
[2021-10-26 15:55] LABS: CREATININE 3.7 mg/dL (0.55-1.02)
[2021-10-26 15:59] LABS: POTASSIUM 8.2 mmol/L (3.5-5.1)
[2021-10-26 18:42] LABS: CREATININE 3.74 mg/dL (0.55-1.02)
[2021-10-26 18:47] LABS: POTASSIUM 8.7 mmol/L (3.5-5.1)
[2021-10-26 19:44] LABS: BILIRUBIN Negative (Negative); BLOOD Negative (Negative); CLARITY Cloudy (Clear); COLOR Dark Yellow (Yellow); GLUCOSE Negative (Negative); KETONE Trace (Negative); LEUKO ESTERASE Trace (Negative); NITRITE Negative (Negative); UROBILINOGEN 0.2 E.U./dl (0.0-1.0)
[2021-10-26 20:08] LABS: BACTERIA TRACE; WBC 0-2 wbc/hpf (0-5)
[2021-10-26 21:53] LABS: CREATININE 3.72 mg/dL (0.55-1.02)
[2021-10-26 21:55] LABS: POTASSIUM 6.6 mmol/L (3.5-5.1)
[2021-10-26 22:50] LABS: HEMATOCRIT 25.3 % (37.0-47.0); MEAN CELL VOLUME 89.1 fl (81.0-99.0); MEAN CORPUSCULAR HGB 28.2 pg (27.0-31.0); MEAN CORPUSCULAR HGB CONC 31.6 g/dl (33.0-37.0); MEAN PLATELET VOLUME 9.4 fl (9.6-12.3); RED BLOOD COUNT 2.84 10*6/uL (4.10-5.10); RED CELL DISTRI WIDTH 15.4 % (0-14.5); WHITE BLOOD COUNT 20.4 10*3/uL (4.8-10.8)
[2021-10-26 22:55] LABS: PLATELET COUNT AUTOMATED 143 10*3/uL (130-400)
[2021-10-26 23:06] LABS: ALBUMIN 2.3 gm/dl (3.1-4.5); CREATININE 3.26 mg/dL (0.55-1.02); PLATELET SUFFICIENCY LOW (NORMAL); TOTAL CELLS COUNTED 100 #CELLS; TOTAL PROTEIN 5.2 gm/dL (6.4-8.2)
[2021-10-26] MEDS ORDERED: NATURE'S BLEND500 M6 PO (23:47)
[2021-10-26] MEDS ORDERED: GRISEOFULVIN500 M1 PO (23:48)
[2021-10-27] VITALS (19 sets, daily range): BP systolic 92–131; BP diastolic 37–65
[2021-10-27 00:19] LABS: POTASSIUM 5.8 mmol/L (3.5-5.1)
[2021-10-27 05:32] LABS: CREATININE 2.76 mg/dL (0.55-1.02); POTASSIUM 5.8 mmol/L (3.5-5.1)
[2021-10-27 06:25] LABS: HEMATOCRIT 24.1 % (37.0-47.0); MEAN CELL VOLUME 89.6 fl (81.0-99.0); MEAN CORPUSCULAR HGB 28.3 pg (27.0-31.0); MEAN CORPUSCULAR HGB CONC 31.5 g/dl (33.0-37.0); MEAN PLATELET VOLUME 10.7 fl (9.6-12.3); PLATELET COUNT AUTOMATED 157 10*3/uL (130-400); RED BLOOD COUNT 2.69 10*6/uL (4.10-5.10); RED CELL DISTRI WIDTH 15.6 % (0-14.5); WHITE BLOOD COUNT 18.7 10*3/uL (4.8-10.8)
[2021-10-27 07:13] LABS: PLATELET SUFFICIENCY NORMAL (NORMAL); TOTAL CELLS COUNTED 100 #CELLS
[2021-10-27 11:47] LABS: CREATININE 2.43 mg/dL (0.55-1.02); POTASSIUM 5.5 mmol/L (3.5-5.1)
[2021-10-27 22:30] LABS: BASO % 0.3 % (0.0-1.0); EOS # 0.2 10*3/uL (0.0-0.4); EOS % 1.2 % (1.0-4.0); HEMATOCRIT 25.2 % (37.0-47.0); LYMPH # 0.7 10*3/uL (1.3-4.4); LYMPH % 5.7 % (27.0-41.0); MEAN CELL VOLUME 86.9 fl (81.0-99.0); MEAN CORPUSCULAR HGB 28.3 pg (27.0-31.0); MEAN CORPUSCULAR HGB CONC 32.5 g/dl (33.0-37.0); MEAN PLATELET VOLUME 10.1 fl (9.6-12.3); MONO # 0.9 10*3/uL (0.1-1.0); MONO % 7.4 % (3.0-9.0); NEUT # 10.7 10*3/uL (2.3-7.9); NEUT % 84.1 % (47.0-73.0); PLATELET COUNT AUTOMATED 146 10*3/uL (130-400); RED CELL DISTRI WIDTH 15.2 % (0-14.5); WHITE BLOOD COUNT 12.8 10*3/uL (4.8-10.8)
[2021-10-28] VITALS (9 sets, daily range): BP systolic 101–128; BP diastolic 50–73
[2021-10-28 00:46] LABS: CREATININE 2.11 mg/dL (0.55-1.02)
[2021-10-28 12:57] LABS: CREATININE 2.22 mg/dL (0.55-1.02); POTASSIUM 4.2 mmol/L (3.5-5.1)
[2021-10-29] MEDS ORDERED: CLOPIDOGREL75 MG PO (17:59)
== END 2021-10-28 22:55 | disposition short-term general hospital (02) | DRG 682 ==
LOC: ED 08:38 → EDHOLD 10:45
PROVIDERS: Emergency Medicine; Internal Medicine Nephrology; Student in an Organized Health Care Education/Training Program; ADMIT Internal Medicine; ATTEND Internal Medicine
PROC: 02HV33Z Insertion of Infusion Device into Superior Vena Cava, Percutaneous Approach (ICD-10-PCS; 2021-10-26)
PROC: 30233N1 Transfusion of Nonautologous Red Blood Cells into Peripheral Vein, Percutaneous Approach (ICD-10-PCS; principal; 2021-10-27)
DX: N17.0 Acute kidney failure with tubular necrosis (principal); I21.4 Non-ST elevation (NSTEMI) myocardial infarction; E43 Unspecified severe protein-calorie malnutrition; E87.1 Hypo-osmolality and hyponatremia; E87.2 Acidosis; K80.10 Calculus of gallbladder with chronic cholecystitis without obstruction; E86.0 Dehydration; E87.5 Hyperkalemia; E83.51 Hypocalcemia; N18.9 Chronic kidney disease, unspecified; Z68.26 Body mass index [BMI] 26.0-26.9, adult; D63.8 Anemia in other chronic diseases classified elsewhere; E83.42 Hypomagnesemia; I12.9 Hypertensive chronic kidney disease with stage 1 through stage 4 chronic kidney disease, or unspecified chronic kidney disease; I25.10 Atherosclerotic heart disease of native coronary artery without angina pectoris; E79.0 Hyperuricemia without signs of inflammatory arthritis and tophaceous disease; M48.00 Spinal stenosis, site unspecified; Z88.6 Allergy status to analgesic agent; Z88.1 Allergy status to other antibiotic agents; Z88.7 Allergy status to serum and vaccine; Z79.899 Other long term (current) drug therapy; Z95.5 Presence of coronary angioplasty implant and graft; Z82.49 Family history of ischemic heart disease and other diseases of the circulatory system; Z79.2 Long term (current) use of antibiotics

== ENCOUNTER → 2022-01-07 | Outpatient (CLI) | payer OTHER ==
[~2022-01-07] MED LIST changes: +NATURE'S BLEND500 M6 PO
[2022-01-07 13:14] LABS: CREATININE 4.56 mg/dL (0.55-1.02); POTASSIUM 4.8 mmol/L (3.5-5.1)
== END | disposition home or self-care (01) ==
LOC: LAB 12:23
PROVIDERS: ATTEND Internal Medicine
DX: E86.9 Volume depletion, unspecified (principal)

== ENCOUNTER 2022-01-09 14:33 | Inpatient (IN) | payer OTHER ==
[~2022-01-09] VITALS: Ht 163.8 cm; Wt 56.8 kg
[2022-01-09 14:44] VITALS: BP 139/116
[2022-01-09 15:54] LABS: BASO # 0.1 10*3/uL (0.0-0.1); BASO % 0.4 % (0.0-1.0); EOS # 0.2 10*3/uL (0.0-0.4); EOS % 1.5 % (1.0-4.0); HEMATOCRIT 39.1 % (37.0-47.0); LYMPH # 1.1 10*3/uL (1.3-4.4); MEAN CELL VOLUME 85.7 fl (81.0-99.0); MEAN CORPUSCULAR HGB 28.1 pg (27.0-31.0); MEAN CORPUSCULAR HGB CONC 32.7 g/dl (33.0-37.0); MEAN PLATELET VOLUME 9.6 fl (9.6-12.3); MONO # 0.9 10*3/uL (0.1-1.0); MONO % 5.6 % (3.0-9.0); NEUT # 13.7 10*3/uL (2.3-7.9); NEUT % 84.3 % (47.0-73.0); PLATELET COUNT AUTOMATED 385 10*3/uL (130-400); RED BLOOD COUNT 4.56 10*6/uL (4.10-5.10); RED CELL DISTRI WIDTH 16.2 % (0-14.5); WHITE BLOOD COUNT 16.3 10*3/uL (4.8-10.8)
[2022-01-09 16:00] VITALS: BP 142/70
[2022-01-09 16:05] LABS: ACT PARTIAL THROMBO TIME 29.7 SECONDS (20.0-32.1)
[2022-01-09 16:06] LABS: CREATININE 6.67 mg/dL (0.55-1.02)
[2022-01-09 16:13] LABS: POTASSIUM 6.6 mmol/L (3.5-5.1)
[2022-01-09 19:35] VITALS: BP 123/71
[2022-01-09 20:00] VITALS: BP 142/70
[2022-01-09 21:22] LABS: CREATININE 5.82 mg/dL (0.55-1.02)
[2022-01-09 21:31] LABS: POTASSIUM 4.7 mmol/L (3.5-5.1)
[2022-01-10] VITALS: BP 110/54
[2022-01-10 01:38] LABS: BILIRUBIN Negative (Negative); BLOOD 3+ (Negative); CLARITY Cloudy (Clear); COLOR Yellow (Yellow); GLUCOSE Negative (Negative); KETONE Negative (Negative); LEUKO ESTERASE 2+ (Negative); NITRITE Negative (Negative); SPECIFIC GRAVITY 1.015 (1.001-1.030); UROBILINOGEN 0.2 E.U./dl (0.0-1.0)
[2022-01-10 01:58] LABS: URINE CHLORIDE, RANDOM < 10 mmol/L
[2022-01-10 02:03] LABS: BACTERIA 3+; EPITHELIAL CELLS 41-50
[2022-01-10 02:04] LABS: RBC 41-50 rbc/hpf (0-2); WBC 31-40 wbc/hpf (0-5)
[2022-01-10 06:32] LABS: BASO # 0.1 10*3/uL (0.0-0.1); BASO % 0.4 % (0.0-1.0); EOS # 0.3 10*3/uL (0.0-0.4); EOS % 2.7 % (1.0-4.0); LYMPH # 1.1 10*3/uL (1.3-4.4); LYMPH % 9.9 % (27.0-41.0); MEAN CELL VOLUME 87.8 fl (81.0-99.0); MEAN CORPUSCULAR HGB 28.6 pg (27.0-31.0); MEAN CORPUSCULAR HGB CONC 32.6 g/dl (33.0-37.0); MEAN PLATELET VOLUME 10.2 fl (9.6-12.3); MONO # 0.8 10*3/uL (0.1-1.0); MONO % 6.6 % (3.0-9.0); NEUT # 9.1 10*3/uL (2.3-7.9); NEUT % 78.7 % (47.0-73.0); PLATELET COUNT AUTOMATED 278 10*3/uL (130-400); RED BLOOD COUNT 3.53 10*6/uL (4.10-5.10); WHITE BLOOD COUNT 11.5 10*3/uL (4.8-10.8)
[2022-01-10 06:33] LABS: CREATININE 4.92 mg/dL (0.55-1.02); POTASSIUM 4.5 mmol/L (3.5-5.1); TOTAL PROTEIN 5.7 gm/dL (6.4-8.2)
[2022-01-10 08:00] VITALS: BP 107/43
[2022-01-10 12:00] VITALS: BP 112/66
[2022-01-10 20:00] VITALS: BP 122/56
[2022-01-11] VITALS: BP 114/57
[2022-01-11 06:11] LABS: CREATININE 3.24 mg/dL (0.55-1.02); TOTAL PROTEIN 5.4 gm/dL (6.4-8.2); URIC ACID 8.6 mg/dL (2.6-6.0)
[2022-01-11 06:20] LABS: BASO # 0.1 10*3/uL (0.0-0.1); BASO % 0.7 % (0.0-1.0); EOS # 0.4 10*3/uL (0.0-0.4); EOS % 4.7 % (1.0-4.0); HEMATOCRIT 27.1 % (37.0-47.0); LYMPH # 0.9 10*3/uL (1.3-4.4); LYMPH % 10.2 % (27.0-41.0); MEAN CORPUSCULAR HGB 28.8 pg (27.0-31.0); MEAN CORPUSCULAR HGB CONC 33.9 g/dl (33.0-37.0); MEAN PLATELET VOLUME 9.9 fl (9.6-12.3); MONO # 0.6 10*3/uL (0.1-1.0); MONO % 7.2 % (3.0-9.0); NEUT # 6.6 10*3/uL (2.3-7.9); NEUT % 76.3 % (47.0-73.0); PLATELET COUNT AUTOMATED 262 10*3/uL (130-400); RED BLOOD COUNT 3.19 10*6/uL (4.10-5.10); WHITE BLOOD COUNT 8.7 10*3/uL (4.8-10.8)
[2022-01-11 06:30] LABS: POTASSIUM 3.4 mmol/L (3.5-5.1)
[2022-01-11 08:00] VITALS: BP 104/66
[2022-01-11 12:00] VITALS: BP 99/43
[2022-01-11] MEDS ORDERED: ELIQUIS2.5 M1 PO (15:41)
== END 2022-01-11 14:30 | disposition left against medical advice (07) | DRG 871 ==
LOC: ED 14:33 → 5E 16:37 → EDHOLD 16:37 → 5E 18:15
PROVIDERS: Emergency Medicine; Internal Medicine; Internal Medicine Nephrology; ADMIT Internal Medicine; ATTEND Internal Medicine
DX: A41.9 Sepsis, unspecified organism (principal); N17.0 Acute kidney failure with tubular necrosis; E43 Unspecified severe protein-calorie malnutrition; N39.0 Urinary tract infection, site not specified; E87.1 Hypo-osmolality and hyponatremia; E87.2 Acidosis; N18.4 Chronic kidney disease, stage 4 (severe); I82.C11 Acute embolism and thrombosis of right internal jugular vein; E87.5 Hyperkalemia; E86.0 Dehydration; J43.9 Emphysema, unspecified; M54.16 Radiculopathy, lumbar region; I12.9 Hypertensive chronic kidney disease with stage 1 through stage 4 chronic kidney disease, or unspecified chronic kidney disease; E78.5 Hyperlipidemia, unspecified; K21.9 Gastro-esophageal reflux disease without esophagitis; I71.4 Abdominal aortic aneurysm, without rupture; M48.061 Spinal stenosis, lumbar region without neurogenic claudication; E53.8 Deficiency of other specified B group vitamins; D63.8 Anemia in other chronic diseases classified elsewhere; E83.39 Other disorders of phosphorus metabolism; Z53.29 Procedure and treatment not carried out because of patient's decision for other reasons; E87.8 Other disorders of electrolyte and fluid balance, not elsewhere classified; E16.2 Hypoglycemia, unspecified; E83.42 Hypomagnesemia; M10.9 Gout, unspecified; F32.A Depression, unspecified; M54.9 Dorsalgia, unspecified; D64.9 Anemia, unspecified; Z95.5 Presence of coronary angioplasty implant and graft; Z90.2 Acquired absence of lung [part of]; Z93.3 Colostomy status; Z87.891 Personal history of nicotine dependence; Z87.19 Personal history of other diseases of the digestive system; Z68.21 Body mass index [BMI] 21.0-21.9, adult; Z98.51 Tubal ligation status; Z82.49 Family history of ischemic heart disease and other diseases of the circulatory system; Z88.1 Allergy status to other antibiotic agents; Z88.7 Allergy status to serum and vaccine; Z88.8 Allergy status to other drugs, medicaments and biological substances; Z79.82 Long term (current) use of aspirin; Z79.899 Other long term (current) drug therapy

== ENCOUNTER 2022-02-27 15:53 | Inpatient (IN) | payer OTHER ==
[~2022-02-27] VITALS: Ht 162.6 cm; Wt 56.7 kg
[~2022-02-27 15:53] MED LIST changes: +DOXYCYCLINE HY100 M3 PO; +ELIQUIS2.5 M1 PO
[2022-02-27 16:00] VITALS: BP 103/55
[2022-02-27 20:00] VITALS: BP 87/53
[2022-02-28] VITALS: BP 99/54
[2022-02-28 08:00] VITALS: BP 100/52
[2022-02-28 12:00] VITALS: BP 104/63
[2022-02-28 16:00] VITALS: BP 100/40; BP 85/58
[2022-02-28 20:00] VITALS: BP 117/72
[2022-03-01] VITALS: BP 97/56
[2022-03-01 08:00] VITALS: BP 94/61
[2022-03-01 12:00] VITALS: BP 94/52
[2022-03-01 16:00] VITALS: BP 94/54
[2022-03-01 20:00] VITALS: BP 104/64
[2022-03-02] VITALS: BP 96/62
[2022-03-02 08:00] VITALS: BP 119/61
== END 2022-03-02 14:20 | disposition hospice, home (50) | DRG 684 ==
LOC: 4E 15:53 → ICCU 15:53 → 4E 19:43
PROVIDERS: ADMIT Internal Medicine; ATTEND Internal Medicine
DX: N17.0 Acute kidney failure with tubular necrosis (principal); N18.6 End stage renal disease; N13.30 Unspecified hydronephrosis; E86.0 Dehydration; E87.5 Hyperkalemia; Z51.5 Encounter for palliative care; Z93.3 Colostomy status